=== PATIENT | male | born 1960 | race Caucasian/White ===

== ENCOUNTER 2016-11-28 10:29 | Inpatient (IN) | payer OTHER ==
[2016-11-28] MEDS ORDERED: Aspirin Low Dose CHEW TAB* 81 MG PO ONE (12:26)
[2016-11-28 12:39] LABS: Hematocrit 43 % (42-52); Hemoglobin 13.9 g/dl (14.0-18.0); Mean Corpuscular HGB Conc 33 g/dl (31-36); Mean Corpuscular Hemoglobin 30 pg (27-31); Mean Corpuscular Volume 91 fL (80-94); Mean Platelet Volume 12 um3 (7.4-10.4); Red Blood Count 4.65 10^6/ul (4.0-5.4); Red Cell Distribution Width 14 % (10.5-15)
[2016-11-28] MEDS ORDERED: Nitroglycerin TAB 0.4 MG* 0.4 MG TAB SL ONE (12:45)
[2016-11-28 12:51] LABS: Albumin 3.7 g/dL (3.2-5.2); BUN/Creatinine Ratio 14.6 (8-20); Calcium 8.9 mg/dL (8.6-10.3); EGFR African American 96.1 (>60); EGFR Non-African American 74.7 (>60); Globulin 2.8 g/dL (2-4); Potassium 4.4 mmol/L (3.5-5.0); Total Bilirubin 0.7 mg/dL (0.2-1.0); Total Protein 6.5 g/dL (6.4-8.9)
[2016-11-28 12:52] LABS: Troponin I 0.02 ng/mL (<0.04)
[2016-11-28] MEDS ORDERED: Iodixanol* (CONTRAST) 320 MG/ML 100 ML SDV IV ONE (13:22)
--- NOTE | 2016-11-28 13:41 | RAD ---
INDICATION: Chest pain. COMPARISON: Comparison is made with a prior chest x-ray study from August 09, 2015. TECHNIQUE: A portable view of the chest was obtained. FINDINGS: The heart is mildly enlarged and unchanged. The lungs are clear. No pleural effusion is seen. IMPRESSION: MILD CARDIOMEGALY, UNCHANGED.
--- NOTE | 2016-11-28 16:27 | ED ---
I, Ramesh,Chioma, scribed for Andrae Camacho MD on 11/28/16 at 1238 . Shortness of Breath <Jairo Mario - Last Filed: 11/28/16 16:21> - HPI Summary HPI Summary: This 56 y/o male presents to ED for acute SOB at ~ 0200 AM this morning. Positive mild substernal 1/10 CP. Mild nausea yesterday. No jaw pain, arm pain, or back pain. He called Dr. Aranda this morning and subsequently was referred to ED. PMHx includes sleep apnea, DM type II, bladder CA, hypothyroidism, CAD, and NH in 2010. Exertion and deep breath make SOB worse. Pt reports recent weight gain. He lives alone. Pt is nonsmoker and nondrinker. - History of Current Complaint Hx Obtained From: Patient, Medical Records Onset/Duration: Sudden Onset, Lasting Hours, Still Present Current Severity: Moderate Dyspnea At: Exertion Aggrevating Factors: Movement, Deep Breaths Alleviating Factors: Oxygen Associated Signs & Symptoms: Chest Pain Unrelated to Cough Related History: Obesity <Andrae Camacoh - Last Filed: 11/28/16 16:27> - History of Current Complaint Chief Complaint: EDShortnessOfBreath - Allergy/Home Medications Allergies/Adverse Reactions: Allergies Allergy/AdvReac Type Severity Reaction Status Date / Time Gabapentin Allergy Intermediate LOW BLOOD Verified 11/28/16 10:43 PRESSURE Procaine [From Novocain] Allergy Intermediate Hives Verified 11/28/16 10:43 Home Medications: Home Medications Aspirin EC Low Dose* [Ecotrin EC Low Dose*] 81 mg PO DAILY 11/28/16 [History Confirmed 11/28/16] Atorvastatin* [Lipitor*] 80 mg PO DAILY 11/28/16 [History Confirmed 11/28/16] BuPROPion XL* [Bupropion XL*] 300 mg PO DAILY 11/28/16 [History Confirmed ] Levothyroxine TAB* [Synthroid TAB*] 88 mcg PO DAILY 11/28/16 [History Confirmed 11/28/16] Levothyroxine TAB* [Synthroid TAB*] 100 mcg PO DAILY 11/28/16 [History Confirmed 11/28/16] Losartan TAB* [Cozaar TAB*] 25 mg PO DAILY 11/28/16 [History Confirmed 11/28/16] Metoprolol Succinate XL TAB* [Toprol XL TAB*] 50 mg PO DAILY 11/28/16 [History Confirmed 11/28/16] Topiramate TAB(*) [Topamax 100 MG(*)] 200 mg PO DAILY 11/28/16 [History Confirmed 11/28/16] traZODone TAB* [Desyrel TAB*] 50 - 100 mg PO BEDTIME PRN 11/28/16 [History Confirmed 11/28/16] PMH/Surg Hx/FS Hx/Imm Hx Endocrine/Hematology History: Reports: Hx Diabetes, Hx Thyroid Disease Denies: Hx Anemia, Hx Unexplained Bleeding Cardiovascular History: Reports: Hx Angina - HX, Hx Congenital Heart Disease, Hx Coronary Artery Disease, Hx Hypercholesterolemia, Hx Hypertension - CONTROL WITH MEDS, Hx Peripheral Vascular Disease - ENLARGED BLOOD VESSELS, Hx Syncope Denies: Hx Angioplasty, Hx Auto Implanted Cardiovert Defib, Hx Deep Vein Thrombosis, Hx Embolism, Hx Hypotension, Hx Pacemaker/ICD, Hx Rheumatic Fever, Hx Valvular Heart Disease Comment Only: Other Cardiovascular Problems/Disorders - 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 Respiratory History: Reports: Hx Asthma - CHILDHOOD, Hx Sleep Apnea - OXYGEN AT 3 LITERS AT NIGHT Denies: Hx Chronic Bronchitis, Hx Chronic Obstructive Pulmonary Disease (COPD ), Hx Cystic Fibrosis, Hx Lung Cancer, Hx Pleural Effusion, Hx Pneumonia, Hx Pulmonary Edema, Hx Pulmonary Embolism, Hx Seasonal Allergies Comment Only: Other Respiratory Problems/Disorders - SLEEPS SITTING UP/ DIFFICULTY SLEEPING GI History: Reports: Other GI Disorders - "SLIGHTLY INFLAMED LIVER" Denies: Hx Cirrhosis, Hx Crohn's Disease, Hx Diverticulosis, Hx Gall Bladder Disease, Hx Gastroesophageal Reflux Disease, Hx Gastrointestinal Bleed, Hx Hiatal Hernia, Hx Irritable Bowel, Hx Jaundice, Hx Obstructive Bowel, Hx Ileostomy, Hx Pyloric Stenosis, Hx Ulcer History: Reports: Hx Kidney Stones, Other Problems/Disorders Denies: Hx Acute Renal Failure, Hx Benign Prostatic Hyperplasia, Hx Chronic Renal Failure, Hx Dialysis, Hx Kidney Infection Musculoskeletal History: Reports: Other Musculoskeletal History Sensory History: Reports: Hx Contacts or Glasses Denies: Hx Cataracts, Hx Eye Injury, Hx Eye Prosthesis, Hx Glaucoma, Hx Legally Blind, Hx Macular Degeneration, Hx Vision Problem, Hx Deafness, Hx Hearing Aid, Hx Hearing Problem, Other Sensory Impairments Opthamlomology History: Reports: Hx Contacts or Glasses Denies: Hx Cataracts, Hx Eye Injury, Hx Eye Prosthesis, Hx Glaucoma, Hx Legally Blind, Hx Macular Degeneration, Hx Vision Problem, Other Sensory Impairments Neurological History: Reports: Hx Headaches, Hx Nerve Disease - neuropathy, C5 damaged, Hx Seizures, Hx Spinal Cord Injury - pt states trauma at coccyx many years ago Denies: Hx Dementia, Hx Developmental Delay, Hx Migraine, Hx Transient Ischemic Attacks (TIA), Other Neuro Impairments/Disorders Psychiatric History: Reports: Hx Anxiety - ON MEDICATION FOR, Hx Depression - ON MEDICATION FOR, Hx Post Traumatic Stress Disorder Denies: Hx Panic Disorder - Cancer History Cancer Type, 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 2010 HEART CATHERIZATION, [facility] [place]. 12/25/2014 CYSTOSCOPY BILATERAL RETROGRADE, BILATERAL STENT INSERTION, URETEROSCOPY, TUR BLADDER LESION, [facility] [place]. 01/11/2015 ESWL, CYSTOSCOPY, RIGHT STENT REMOVAL, [facility] Anesthesia Reactions: No - Immunization History Date of Tetanus Vaccine: Unsure Date of Influenza Vaccine: 2011 Infectious Disease History: No Infectious Disease History: Denies: Hx Clostridium Difficile, Hx Hepatitis, Hx Human Immunodeficiency Virus (HIV), Hx of Known/Suspected MRSA, Hx Shingles, Hx Tuberculosis, Hx Known/ Suspected VRE, Hx Known/Suspected VRSA, History Other Infectious Disease, Traveled Outside the [place] in Last 30 Days - Family History Known Family History: Negative: Cardiac Disease - Social History Alcohol Use: None Hx Substance Use: No Substance Use Type: Reports: None Hx Tobacco Use: No Smoking Status (MU): Never Smoked Tobacco Have You Smoked in the Last Year: No <Andrae Camacho - Last Filed: 11/28/16 16:27> Review of Systems Negative: Fever Negative: Erythema Negative: Sore Throat Positive: Chest Pain - mild Positive: Shortness Of Breath - worse with exertion and deep breath Positive: Nausea. Negative: Abdominal Pain, Vomiting Negative: dysuria, hematuria Negative: Edema Negative: Rash Neurological: Other - negative for dizziness All Other Systems Reviewed And Are Negative: Yes <Andrae Camacho - Last Filed: 11/28/16 16:27> Physical Exam Vital Signs On Initial Exam: Initial Vitals Temp Pulse Resp BP Pulse Ox 98.9 F 93 19 151/101 97 11/28/16 10:39 11/28/16 10:39 11/28/16 10:39 11/28/16 10:39 11/28/16 10:39 <Jairo Mario - Last Filed: 11/28/16 16:21> - Summary Physical Exam Summary: Constitutional: Well-developed, Obese, Alert. (-) Distressed Skin: Warm, Dry HENT: Normocephalic; Atraumatic Eyes: Conjunctiva normal Neck: Musculoskeletal ROM normal neck. (-) JVD, (-) Stridor, (-) Tracheal deviation Cardio: Rhythm regular, rate normal, Heart sounds normal; Intact distal pulses; The pedal pulses are 2+ and symmetric. Radial pulses are 2+ and symmetric. (-) Murmur Pulmonary/Chest wall: Effort normal. (-) Respiratory distress, (-) Wheezes, (-) Rales Abd: Soft, (-) Tenderness, (-) Distension, (-) Guarding, (-) Rebound Musculoskeletal: (-) Edema Lymph: (-) Cervical adenopathy Neuro: Alert, Oriented x3 Psych: Mood and affect Normal Triage Information Reviewed: Yes Vital Signs On Initial Exam: Initial Vitals Temp Pulse Resp BP Pulse Ox 98.9 F 93 19 151/101 97 11/28/16 10:39 11/28/16 10:39 11/28/16 10:39 11/28/16 10:39 11/28/16 10:39 Vital Signs Reviewed: Yes - [place] Coma Scale Coma Scale Total: 15 <Andrae Camacho - Last Filed: 11/28/16 16:27> Diagnostics - Vital Signs Vital Signs Temp Pulse Resp BP Pulse Ox 11/28/16 14:00 79 21 122/81 99 11/28/16 13:30 81 21 126/78 98 11/28/16 13:00 19 126/91 11/28/16 12:30 80 15 116/70 98 11/28/16 12:00 80 14 115/78 97 11/28/16 11:30 87 16 120/78 97 11/28/16 11:00 89 18 141/89 97 11/28/16 10:42 91 18 97 11/28/16 10:39 98.9 F 93 19 151/101 97 - Laboratory Lab Results: Lab Results 11/28/16 11/28/16 11/28/16 Range/Units 10:33 10:33 10:33 WBC 11.0 H (3.5-10.8) 10^3/ul RBC 4.65 (4.0-5.4) 10^6/ul Hgb 13.9 L (14.0-18.0) g/dl Hct 43 (42-52) % MCV 91 (80-94) fL MCH 30 (27-31) pg MCHC 33 (31-36) g/dl RDW 14 (10.5-15) % Plt Count 169 (150-450) 10^3/ul MPV 12 H (7.4-10.4) um3 Neut % (Auto) 78.1 (38-83) % Lymph % (Auto) 12.9 L (25-47) % [place] % (Auto) 7.1 (1-9) % Eos % (Auto) 1.1 (0-6) % Baso % (Auto) 0.8 (0-2) % Absolute Neuts (auto) 8.6 H (1.5-7.7) 10^3/ul Absolute Lymphs (auto) 1.4 (1.0-4.8) 10^3/ul Absolute Monos (auto) 0.8 (0-0.8) 10^3/ul Absolute Eos (auto) 0.1 (0-0.6) 10^3/ul Absolute Basos (auto) 0.1 (0-0.2) 10^3/ul Absolute Nucleated RBC 0 10^3/ul Nucleated RBC % 0 Sodium 134 (133-145) mmol/L Potassium 4.4 (3.5-5.0) mmol/L Chloride 103 (101-111) mmol/L Carbon Dioxide 25 (22-32) mmol/L Anion Gap 6 (2-11) mmol/L BUN 15 (6-24) mg/dL Creatinine 1.03 (0.67-1.17) mg/dL Est GFR ( Amer) 96.1 (>60) Est GFR (Non-Af Amer) 74.7 (>60) BUN/Creatinine Ratio 14.6 (8-20) Glucose 150 H (70-100) mg/dL Lactic Acid (0.5-2.0) mmol/L Calcium 8.9 (8.6-10.3) mg/dL Total Bilirubin 0.70 (0.2-1.0) mg/dL AST 12 L (13-39) U/L ALT 16 (7-52) U/L Alkaline Phosphatase 81 (34-104) U/L Troponin I 0.02 (<0.04) ng/mL B-Natriuretic Peptide 320 H ( - 100) pg/mL Total Protein 6.5 (6.4-8.9) g/dL Albumin 3.7 (3.2-5.2) g/dL Globulin 2.8 (2-4) g/dL Albumin/Globulin Ratio 1.3 (1-3) 11/28/16 Range/Units 15:40 WBC (3.5-10.8) 10^3/ul RBC (4.0-5.4) 10^6/ul Hgb (14.0-18.0) g/dl Hct (42-52) % MCV (80-94) fL MCH (27-31) pg MCHC (31-36) g/dl RDW (10.5-15) % Plt Count (150-450) 10^3/ul MPV (7.4-10.4) um3 Neut % (Auto) (38-83) % Lymph % (Auto) (25-47) % [place] % (Auto) (1-9) % Eos % (Auto) (0-6) % Baso % (Auto) (0-2) % Absolute Neuts (auto) (1.5-7.7) 10^3/ul Absolute Lymphs (auto) (1.0-4.8) 10^3/ul Absolute Monos (auto) (0-0.8) 10^3/ul Absolute Eos (auto) (0-0.6) 10^3/ul Absolute Basos (auto) (0-0.2) 10^3/ul Absolute Nucleated RBC 10^3/ul Nucleated RBC % Sodium (133-145) mmol/L Potassium (3.5-5.0) mmol/L Chloride (101-111) mmol/L Carbon Dioxide (22-32) mmol/L Anion Gap (2-11) mmol/L BUN (6-24) mg/dL Creatinine (0.67-1.17) mg/dL Est GFR ( Amer) (>60) Est GFR (Non-Af Amer) (>60) BUN/Creatinine Ratio (8-20) Glucose (70-100) mg/dL Lactic Acid 1.0 (0.5-2.0) mmol/L Calcium (8.6-10.3) mg/dL Total Bilirubin (0.2-1.0) mg/dL AST (13-39) U/L ALT (7-52) U/L Alkaline Phosphatase (34-104) U/L Troponin I (<0.04) ng/mL B-Natriuretic Peptide ( - 100) pg/mL Total Protein (6.4-8.9) g/dL Albumin (3.2-5.2) g/dL Globulin (2-4) g/dL Albumin/Globulin Ratio (1-3) Result Diagrams: 11/28/16 10:33 11/28/16 10:33 Lab Statement: Any lab studies that have been ordered have been reviewed, and results considered in the medical decision making process. <Jairo Mario - Last Filed: 11/28/16 16:21> - Vital Signs Vital Signs Temp Pulse Resp BP Pulse Ox 11/28/16 12:00 80 14 115/78 97 11/28/16 11:30 87 16 120/78 97 11/28/16 11:00 89 18 141/89 97 11/28/16 10:42 91 18 97 11/28/16 10:39 98.9 F 93 19 151/101 97 - Laboratory Lab Results: Lab Results 11/28/16 11/28/16 11/28/16 Range/Units 10:33 10:33 10:33 WBC 11.0 H (3.5-10.8) 10^3/ul RBC 4.65 (4.0-5.4) 10^6/ul Hgb 13.9 L (14.0-18.0) g/dl Hct 43 (42-52) % MCV 91 (80-94) fL MCH 30 (27-31) pg MCHC 33 (31-36) g/dl RDW 14 (10.5-15) % Plt Count 169 (150-450) 10^3/ul MPV 12 H (7.4-10.4) um3 Neut % (Auto) 78.1 (38-83) % Lymph % (Auto) 12.9 L (25-47) % [place] % (Auto) 7.1 (1-9) % Eos % (Auto) 1.1 (0-6) % Baso % (Auto) 0.8 (0-2) % Absolute Neuts (auto) 8.6 H (1.5-7.7) 10^3/ul Absolute Lymphs (auto) 1.4 (1.0-4.8) 10^3/ul Absolute Monos (auto) 0.8 (0-0.8) 10^3/ul Absolute Eos (auto) 0.1 (0-0.6) 10^3/ul Absolute Basos (auto) 0.1 (0-0.2) 10^3/ul Absolute Nucleated RBC 0 10^3/ul Nucleated RBC % 0 Sodium 134 (133-145) mmol/L Potassium 4.4 (3.5-5.0) mmol/L Chloride 103 (101-111) mmol/L Carbon Dioxide 25 (22-32) mmol/L Anion Gap 6 (2-11) mmol/L BUN 15 (6-24) mg/dL Creatinine 1.03 (0.67-1.17) mg/dL Est GFR ( Amer) 96.1 (>60) Est GFR (Non-Af Amer) 74.7 (>60) BUN/Creatinine Ratio 14.6 (8-20) Glucose 150 H (70-100) mg/dL Lactic Acid (0.5-2.0) mmol/L Calcium 8.9 (8.6-10.3) mg/dL Total Bilirubin 0.70 (0.2-1.0) mg/dL AST 12 L (13-39) U/L ALT 16 (7-52) U/L Alkaline Phosphatase 81 (34-104) U/L Troponin I 0.02 (<0.04) ng/mL B-Natriuretic Peptide 320 H ( - 100) pg/mL Total Protein 6.5 (6.4-8.9) g/dL Albumin 3.7 (3.2-5.2) g/dL Globulin 2.8 (2-4) g/dL Albumin/Globulin Ratio 1.3 (1-3) 11/28/16 Range/Units 15:40 WBC (3.5-10.8) 10^3/ul RBC (4.0-5.4) 10^6/ul Hgb (14.0-18.0) g/dl Hct (42-52) % MCV (80-94) fL MCH (27-31) pg MCHC (31-36) g/dl RDW (10.5-15) % Plt Count (150-450) 10^3/ul MPV (7.4-10.4) um3 Neut % (Auto) (38-83) % Lymph % (Auto) (25-47) % [place] % (Auto) (1-9) % Eos % (Auto) (0-6) % Baso % (Auto) (0-2) % Absolute Neuts (auto) (1.5-7.7) 10^3/ul Absolute Lymphs (auto) (1.0-4.8) 10^3/ul Absolute Monos (auto) (0-0.8) 10^3/ul Absolute Eos (auto) (0-0.6) 10^3/ul Absolute Basos (auto) (0-0.2) 10^3/ul Absolute Nucleated RBC 10^3/ul Nucleated RBC % Sodium (133-145) mmol/L Potassium (3.5-5.0) mmol/L Chloride (101-111) mmol/L Carbon Dioxide (22-32) mmol/L Anion Gap (2-11) mmol/L BUN (6-24) mg/dL Creatinine (0.67-1.17) mg/dL Est GFR ( Amer) (>60) Est GFR (Non-Af Amer) (>60) BUN/Creatinine Ratio (8-20) Glucose (70-100) mg/dL Lactic Acid 1.0 (0.5-2.0) mmol/L Calcium (8.6-10.3) mg/dL Total Bilirubin (0.2-1.0) mg/dL AST (13-39) U/L ALT (7-52) U/L Alkaline Phosphatase (34-104) U/L Troponin I (<0.04) ng/mL B-Natriuretic Peptide ( - 100) pg/mL Total Protein (6.4-8.9) g/dL Albumin (3.2-5.2) g/dL Globulin (2-4) g/dL Albumin/Globulin Ratio (1-3) Result Diagrams: 11/28/16 10:33 11/28/16 10:33 Lab Statement: Any lab studies that have been ordered have been reviewed, and results considered in the medical decision making process. - Radiology CXR Xray Interpretation: No Acute Changes - mild cardiomegaly, unchanged. Radiology Interpretation Completed By: Radiologist - CT CTA chest/thorax CT Interpretation Completed By: Radiologist - EKG 1028 Cardiac Rate: NL - 92 bpm EKG Rhythm: Sinus Rhythm EKG Interpretation: Twve inversion at V5-6 <Andrae Camacho - Last Filed: 11/28/16 16:27> Course/Dx - Course Course Of Treatment: accepted for admit by dr garcia @ 1622, with CTA still pending. r/o ACS vs PE vs. CHF vs obstructive pulmonary process - Physician Notifications Discussed Care of Patient With: dr aranda requests hospitalist admit @ 1620 <Jairo Mario - Last Filed: 11/28/16 16:21> - Course Assessment/Plan: charting error: all documentation by Dr. Camacho, Dr. Mario did not chart on or see this patient - Physician Notifications Discussed Care of Patient With: Dr. Aranda (Primary care provider) paged at 1539 PM. Carson Gonzalez at 1556 PM. She will be labor relations consultant for the group starting from 1630 PM. Time Discussed With Above Provider: 15:56 <Andrae Camacho - Last Filed: 11/28/16 16:27> - Diagnoses Provider Diagnoses: Shortness of breath, Chest pain, unspecified Discharge <Jairo Mraio - Last Filed: 11/28/16 16:21> - Discharge Plan Discharge Disposition Comment: Signed out at shift change. Pending CTA chest and poss admission workup. <Andrae Camacho - Last Filed: 11/28/16 16:27> - Discharge Plan Condition: Stable Disposition: ADMITTED TO [facility] Referrals: Clifford Aranda MD [Primary Care Provider] - The documentation as recorded by the Ramesh hernandez Soohyun accurately reflects the service I personally performed and the decisions made by Doug thompson Jerry, MD.
--- NOTE | 2016-11-28 16:30 | RAD ---
INDICATION: Chest pain. Short of breath. Evaluate for pulmonary embolus. Short of breath COMPARISON: Chest x-ray November 28, 2016; CTA chest/abdomen/pelvis January 22, 2011 TECHNIQUE: Axial source images were obtained from the thoracic inlet to the hemidiaphragms following administration of [address] angiographic technique was utilized. Coronal and sagittal reconstructed images were acquired. CHEST FINDINGS: Neck/thyroid: The visualized neck to include the thyroid appear normal. Chest wall: There are no acute abnormalities of the bony thorax or chest wall. There is no supraclavicular, infraclavicular, or axillary lymphadenopathy. Lungs : There are no pulmonary parenchymal masses or infiltrates. The pulmonary interstitium appears normal. There are no endobronchial lesions. Cardiomediastinal structures: There is no CT evidence of acute pulmonary embolic disease. There are minor limitations in evaluation of peripheral pulmonary arteries due to breathing motion artifact and body habitus. The heart is enlarged. There is no pericardial effusion. There is no evidence of aortic aneurysm or dissection. There is no mediastinal or hilar adenopathy. The esophagus appears normal. Pleura : There are no pleural-based masses or effusions. Other: None. IMPRESSION: MILDLY LIMITED EXAMINATION. NO CT EVIDENCE OF ACUTE PULMONARY EMBOLIC DISEASE AT LEAST THROUGH FOURTH ORDER BRANCH VESSELS . CARDIOMEGALY. MILD BIBASILAR ATELECTASIS WITH SMALL BILATERAL PLEURAL EFFUSIONS.
[2016-11-28] MEDS ORDERED: metFORMIN* 1,000 MG TAB PO SCH (17:00)
[2016-11-28] MEDS ORDERED: Clopidogrel TAB* 75 MG PO ONE (17:01)
--- NOTE | 2016-11-28 17:16 | ADMNOTE ---
Subjective Date of Service: 11/28/16 Interval History: ADMISSION HISTORY AND PHYSICAL EXAM: Allergies Allergy/AdvReac Type Severity Reaction Status Date / Time Gabapentin Allergy Intermediate LOW BLOOD Verified 11/28/16 10:43 PRESSURE Procaine [From Novocain] Allergy Intermediate Hives Verified 11/28/16 10:43 Home Medications Medication Instructions Recorded Confirmed Type Clopidogrel TAB* [Plavix TAB*] 75 mg PO DAILY 08/10/13 11/28/16 History metFORMIN* [Glucophage*] 1,000 mg PO BID WITH MEALS 12/18/14 11/28/16 History Aspirin EC Low Dose* [Ecotrin EC 81 mg PO DAILY 11/28/16 11/28/16 History Low Dose*] Atorvastatin* [Lipitor*] 80 mg PO DAILY 11/28/16 11/28/16 History BuPROPion XL* [Bupropion XL*] 300 mg PO DAILY 11/28/16 11/28/16 History Levothyroxine TAB* [Synthroid TAB*] 88 mcg PO DAILY 11/28/16 11/28/16 History Levothyroxine TAB* [Synthroid TAB*] 100 mcg PO DAILY 11/28/16 11/28/16 History Losartan TAB* [Cozaar TAB*] 25 mg PO DAILY 11/28/16 11/28/16 History Metoprolol Succinate XL TAB* 50 mg PO DAILY 11/28/16 11/28/16 History [Toprol XL TAB*] Topiramate TAB(*) [Topamax 100 200 mg PO DAILY 11/28/16 11/28/16 History MG(*)] traZODone TAB* [Desyrel TAB*] 50 - 100 mg PO BEDTIME PRN 11/28/16 11/28/16 History HPI: Catherine awoke 3 AM today SOB. He did not take any of his meds at home. He states he was "immobilized" sitting on the edge of his bed at 8 AM. He called [address] Aranda's office. He denies cough, chest pain. Family History: Findings - unremarkable. Social History: Findings - Never smoked. No alcohol abuse. Lives alone. On disability. 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 Past Medical History: Findings - DM with retinopathy, coronary ectasia, TYRA with BIPAP at home. Review of Systems - Measurements Intake and Output: Intake and Output Last 24 Hours 11/26/16 11/27/16 11/28/16 11/29/16 06:59 06:59 06:59 06:59 Weight 336 lb - Review of Systems Constitutional Symptoms: Negative: Weight Gain, Weight Loss, Weakness, Fatigue, Fever, Night Sweats, Unexplained Falls, Other Dermatology: Positive: Normal HEENT: Positive: Normal Eyes: Positive: Normal Thyroid: Positive: Primary Hypothyroidism Pulmonary: Positive: Shortness of Breath Cardiology: Positive: Normal Gastroenterology: Positive: Normal Genital - Urinary: Positive: Normal Endocrinology: Positive: Thyroid Problems, Diabetes Mellitus Hematologic/Lymphatic: Negative: Anemia, Easy Brusing, Hx Leukemia, Hx Lymphoma, Use of Anticoagulant, Use of Antiplatelet Drugs, Other Neurology: Positive: Normal Allergic/Immunologic: Negative: Hx Anaphylaxis, Hx Angioedema, Hx Environmental, Hx Seasonal, Athsma, Hx HIV, Immunocompromise, Swollen Glands LymphNodes, Other Objective Active Medications: Aspirin (Aspirin Ec Low Dose*) 81 mg PO DAILY [facility] Atorvastatin Calcium (Lipitor*) 80 mg PO DAILY [facility] Bupropion HCl (Bupropion Xl*) 300 mg PO DAILY [facility] Clopidogrel Bisulfate (Plavix Tab*) 75 mg PO DAILY [facility] Enoxaparin Sodium (Lovenox(*)) 40 mg SUBCUT Q24H [facility] Levothyroxine Sodium (Synthroid Tab*) 100 mcg PO DAILY [facility] Levothyroxine Sodium (Synthroid Tab*) 88 mcg PO DAILY [facility] Losartan Potassium (Cozaar Tab*) 25 mg PO DAILY [facility] Metoprolol Succinate (Toprol Xl Tab*) 50 mg PO DAILY [facility] Topiramate (Topamax(*)) 200 mg PO DAILY [facility] Vital Signs 11/28/16 11/28/16 11/28/16 10:39 10:42 11:00 Temperature 98.9 F Pulse Rate 93 91 89 Respiratory 19 18 18 Rate Blood Pressure 151/101 141/89 (mmHg) O2 Sat by Pulse 97 97 97 Oximetry 11/28/16 11/28/16 11/28/16 11:30 12:00 12:30 Temperature Pulse Rate 87 80 80 Respiratory 16 14 15 Rate Blood Pressure 120/78 115/78 116/70 (mmHg) O2 Sat by Pulse 97 97 98 Oximetry 11/28/16 11/28/16 11/28/16 13:00 13:30 14:00 Temperature Pulse Rate 81 79 Respiratory 19 21 21 Rate Blood Pressure 126/91 126/78 122/81 (mmHg) O2 Sat by Pulse 98 99 Oximetry 11/28/16 11/28/16 15:00 15:30 Temperature Pulse Rate 77 83 Respiratory 14 11 Rate Blood Pressure 124/81 101/74 (mmHg) O2 Sat by Pulse 99 97 Oximetry Oxygen Devices in Use Now: None Appearance: Alert, suppine on ED stretcher. In good spirits. Looks comfortable. O2 sat 96% on RA. Eyes: No Scleral Icterus Ears/Nose/Mouth/Throat: Clear Oropharnyx, Mucous Membranes Moist Neck: NL Appearance and Movements; NL JVP, No Thyroid Enlargement, Masses Respiratory: Symmetrical Chest Expansion and Respiratory Effort, Clear to Auscultation, Clear to Percussion Cardiovascular: NL Sounds; No Murmurs; No JVD, RRR, No Edema, - Extremities: No Edema, No Clubbing, Cyanosis, - Skin: No Rash or Ulcers, No Nodules or Sclerosis, - Neurological: Alert and Oriented x 3, NL Sensation Result Diagrams: 11/28/16 10:33 11/28/16 10:33 Additional Lab and Data: Lab Results 11/28/16 11/28/16 11/28/16 Range/Units 10:33 10:33 10:33 WBC 11.0 H (3.5-10.8) 10^3/ul RBC 4.65 (4.0-5.4) 10^6/ul Hgb 13.9 L (14.0-18.0) g/dl Hct 43 (42-52) % MCV 91 (80-94) fL MCH 30 (27-31) pg MCHC 33 (31-36) g/dl RDW 14 (10.5-15) % Plt Count 169 (150-450) 10^3/ul MPV 12 H (7.4-10.4) um3 Neut % (Auto) 78.1 (38-83) % Lymph % (Auto) 12.9 L (25-47) % [place] % (Auto) 7.1 (1-9) % Eos % (Auto) 1.1 (0-6) % Baso % (Auto) 0.8 (0-2) % Absolute Neuts (auto) 8.6 H (1.5-7.7) 10^3/ul Absolute Lymphs (auto) 1.4 (1.0-4.8) 10^3/ul Absolute Monos (auto) 0.8 (0-0.8) 10^3/ul Absolute Eos (auto) 0.1 (0-0.6) 10^3/ul Absolute Basos (auto) 0.1 (0-0.2) 10^3/ul Absolute Nucleated RBC 0 10^3/ul Nucleated RBC % 0 Sodium 134 (133-145) mmol/L Potassium 4.4 (3.5-5.0) mmol/L Chloride 103 (101-111) mmol/L Carbon Dioxide 25 (22-32) mmol/L Anion Gap 6 (2-11) mmol/L BUN 15 (6-24) mg/dL Creatinine 1.03 (0.67-1.17) mg/dL Est GFR ( Amer) 96.1 (>60) Est GFR (Non-Af Amer) 74.7 (>60) BUN/Creatinine Ratio 14.6 (8-20) Glucose 150 H (70-100) mg/dL Lactic Acid (0.5-2.0) mmol/L Calcium 8.9 (8.6-10.3) mg/dL Total Bilirubin 0.70 (0.2-1.0) mg/dL AST 12 L (13-39) U/L ALT 16 (7-52) U/L Alkaline Phosphatase 81 (34-104) U/L Troponin I 0.02 (<0.04) ng/mL B-Natriuretic Peptide 320 H ( - 100) pg/mL Total Protein 6.5 (6.4-8.9) g/dL Albumin 3.7 (3.2-5.2) g/dL Globulin 2.8 (2-4) g/dL Albumin/Globulin Ratio 1.3 (1-3) 11/28/16 Range/Units 15:40 WBC (3.5-10.8) 10^3/ul RBC (4.0-5.4) 10^6/ul Hgb (14.0-18.0) g/dl Hct (42-52) % MCV (80-94) fL MCH (27-31) pg MCHC (31-36) g/dl RDW (10.5-15) % Plt Count (150-450) 10^3/ul MPV (7.4-10.4) um3 Neut % (Auto) (38-83) % Lymph % (Auto) (25-47) % [place] % (Auto) (1-9) % Eos % (Auto) (0-6) % Baso % (Auto) (0-2) % Absolute Neuts (auto) (1.5-7.7) 10^3/ul Absolute Lymphs (auto) (1.0-4.8) 10^3/ul Absolute Monos (auto) (0-0.8) 10^3/ul Absolute Eos (auto) (0-0.6) 10^3/ul Absolute Basos (auto) (0-0.2) 10^3/ul Absolute Nucleated RBC 10^3/ul Nucleated RBC % Sodium (133-145) mmol/L Potassium (3.5-5.0) mmol/L Chloride (101-111) mmol/L Carbon Dioxide (22-32) mmol/L Anion Gap (2-11) mmol/L BUN (6-24) mg/dL Creatinine (0.67-1.17) mg/dL Est GFR ( Amer) (>60) Est GFR (Non-Af Amer) (>60) BUN/Creatinine Ratio (8-20) Glucose (70-100) mg/dL Lactic Acid 1.0 (0.5-2.0) mmol/L Calcium (8.6-10.3) mg/dL Total Bilirubin (0.2-1.0) mg/dL AST (13-39) U/L ALT (7-52) U/L Alkaline Phosphatase (34-104) U/L Troponin I (<0.04) ng/mL B-Natriuretic Peptide ( - 100) pg/mL Total Protein (6.4-8.9) g/dL Albumin (3.2-5.2) g/dL Globulin (2-4) g/dL Albumin/Globulin Ratio (1-3) Assess/Plan/Problems-Billing Assessment: - Patient Problems (1) Dyspnea Current Visit: Yes Status: Acute Code(s): R06.00 - DYSPNEA, UNSPECIFIED SNOMED Code(s): 721509066 Comment: Although he has both heart and lung disease, I suspect the acute change which resolved without intervention was related to anxiety. Mucous pugging is also possible. He appears to be at [facility] [place] now, O2 sat 96% on RA. I ordered overnight oximetry on RA, no BIPAP. He uses nasal BIPAP at home which we don't have. Tele, second troponin pending. (2) Coronary artery disease Current Visit: No Status: Chronic Priority: Low Code(s): I25.10 - ATHSCL HEART DISEASE OF [place] CORONARY ARTERY W/O ANG PCTRS SNOMED Code(s): 35069923 Comment: He will get his doses of ASA and clopidogrel for today. All meds ordered except metformin. 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 Metformin on hold. (4) Obesity, morbid, BMI 50 or higher Current Visit: No Status: Chronic Priority: Low Code(s): E66.01 - MORBID ( SEVERE) OBESITY DUE TO EXCESS CALORIES SNOMED Code(s): 293762755 Comment: BMI 54.2. (5) Primary hypothyroidism Current Visit: No Status: Chronic Priority: Low Code(s): E03.9 - HYPOTHYROIDISM, UNSPECIFIED SNOMED Code(s): 16768490 Comment: Home dose levothyroxine ordered. TSH wnl 08/2016. (6) Essential (primary) hypertension Current Visit: No Status: Chronic Priority: Medium Code(s): I10 - ESSENTIAL (PRIMARY) HYPERTENSION SNOMED Code(s): 16821076 Comment: Losartan and metoprolol ordered. (7) Hypercholesteremia Current Visit: No Status: Chronic Priority: Low Code(s): E78.0 - PURE HYPERCHOLESTEROLEMIA * DO NOT USE * SNOMED Code(s): 12585740 Comment: Statin ordered.
[2016-11-28] MEDS ORDERED: Dextrose 50% Syringe 50 ML* 25 GM/50 ML SYRINGE IV PUSH PRN (17:19)
[2016-11-28] MEDS: Enoxaparin(*) 40 MG/0.4 ML SYR SUBCUT SCH (20:44)
[2016-11-28] MEDS: Insulin LISPRO* 1 UNITS UNIT SUBCUT SCH (20:55)
[2016-11-28] MEDS: Acetaminophen TAB* 325 MG PO PRN (22:17)
[2016-11-29] MEDS: Levothyroxine TAB* 100 MCG TAB PO SCH (05:08)
[2016-11-29] MEDS: Acetaminophen TAB* 325 MG PO PRN (05:10)
[2016-11-29] MEDS ORDERED: Levothyroxine TAB* 88 MCG TAB PO SCH (06:00)
--- NOTE | 2016-11-29 08:37 | PN ---
Subjective - Subjective Reason for Note: Progress Note History: History from patient: I saw him in my office last week and increased his losartan. He is otherwise well. 11/28/16 at 2:30 am he had a bowel movement - unusual for him. After this he developed dyspnea. He had to sit upright for the rest of the night. This worsened at 7 - 8 am and he found his legs were wobbly. He used his home O2 concentrator at 5 lpm - no relief. He called my office at 9:15 and proceeded to the ED. No chest pain/tightness/arm pain or jaw pain. He had diaphoresis. No nausea, palpitations, pre-syncope. No cough/sputum/hemoptysis. No fevers or sweats NTG and O2 in the ambulance relieved his symptoms. He has had no further problems. He has had no edema. Today "I'm fine" - he had no orthopnea or paroxysmal nocturnal dyspnea overnight. His telemetry shows a few PVCs. Active Problems: Active Problems Dyspnea (Acute) R06.00 Although he has both heart and lung disease, I suspect the acute change which resolved without intervention was related to anxiety. Mucous pugging is also possible. He appears to be at [facility], [place] now, O2 sat 96% on RA. I ordered overnight oximetry on RA, no BIPAP. He uses nasal BIPAP at home which we don't have. Tele, second troponin pending. Moderate mitral regurgitation (Acute) I34.0 Systolic and diastolic CHF, acute (Acute) I50.41 Coronary artery disease (Chronic) I25.10 He will get his doses of ASA and clopidogrel for today. All meds ordered except metformin. Diverticulosis (Chronic) K57.90 Essential (primary) hypertension (Chronic) I10 Losartan and metoprolol ordered. Hypercholesteremia (Chronic) E78.0 Statin ordered. Nephrolithiasis (Chronic) N20.0 Obesity, morbid, BMI 50 or higher (Chronic) E66.01 BMI 54.2. PTSD (post-traumatic stress disorder) (Chronic) F43.10 Primary hypothyroidism (Chronic) E03.9 Home dose levothyroxine ordered. TSH wnl 08/2016. 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 Metformin on hold. Current Medications: Current Medications Acetaminophen (Tylenol Tab*) 650 mg PO Q4H PRN PRN Reason: HEADACHE Last Admin: 11/29/16 05:10 Dose: 650 mg Aspirin (Aspirin Ec Low Dose*) 81 mg PO DAILY [facility] Atorvastatin Calcium (Lipitor*) 80 mg PO DAILY [facility] Bupropion HCl (Bupropion Xl*) 300 mg PO DAILY [facility] Clopidogrel Bisulfate (Plavix Tab*) 75 mg PO DAILY [facility] Dextrose (D50w Syringe 50 Ml*) 12.5 gm IV PUSH .FOR FS < 60 - SS PRN PRN Reason: FS < 60 Enoxaparin Sodium (Lovenox(*)) 40 mg SUBCUT Q24H [facility] Last Admin: 11/28/16 20:44 Dose: 40 mg Insulin Human Lispro (Humalog*) 0 units SUBCUT ACHS [facility] PRN Reason: Protocol Last Admin: 11/28/16 20:55 Dose: 6 units Levothyroxine Sodium (Synthroid Tab*) 100 mcg PO 0600 [facility] Last Admin: 11/29/16 05:08 Dose: 100 mcg Losartan Potassium (Cozaar Tab*) 25 mg PO DAILY [facility] Metoprolol Succinate (Toprol Xl Tab*) 50 mg PO DAILY [facility] Topiramate (Topamax(*)) 200 mg PO DAILY [facility] - Review of Systems Constitutional Symptoms: No: Fever, Night Sweats Pulmonary: Positive: Respiratory Distress - at presentation, not now Negative: Cough, Sputum, Hemoptysis Cardiology: Positive: Shortness of Breath Negative: Chest Pain, Palpitations Gastroenterology: Negative: Nausea, Vomiting, Anorexia, Change in Bowel Habits Genital - Urinary: Negative: Dysuria, Polyuria Neurology: Positive: Headache - from NTG Home Medications: Home Medications Medication Instructions Recorded Confirmed Type Clopidogrel TAB* [Plavix TAB*] 75 mg PO DAILY 08/10/13 11/28/16 History metFORMIN* [Glucophage*] 1,000 mg PO BID WITH MEALS 12/18/14 11/28/16 History Aspirin EC Low Dose* [Ecotrin EC 81 mg PO DAILY 11/28/16 11/28/16 History Low Dose*] Atorvastatin* [Lipitor*] 80 mg PO DAILY 11/28/16 11/28/16 History BuPROPion XL* [Bupropion XL*] 300 mg PO DAILY 11/28/16 11/28/16 History Levothyroxine TAB* [Synthroid TAB*] 100 mcg PO DAILY 11/28/16 11/28/16 History Losartan TAB* [Cozaar TAB*] 25 mg PO DAILY 11/28/16 11/28/16 History Metoprolol Succinate XL TAB* 50 mg PO DAILY 11/28/16 11/28/16 History [Toprol XL TAB*] Topiramate TAB(*) [Topamax 100 200 mg PO DAILY 11/28/16 11/28/16 History MG(*)] traZODone TAB* [Desyrel TAB*] 50 - 100 mg PO BEDTIME PRN 11/28/16 11/28/16 History Allergies: Allergies Allergy/AdvReac Type Severity Reaction Status Date / Time Gabapentin Allergy Intermediate LOW BLOOD Verified 11/28/16 10:43 PRESSURE Procaine [From Novocain] Allergy Intermediate Hives Verified 11/28/16 10:43 Objective - Vital Signs Vital Signs: Vital Signs 11/28/16 11/28/16 11/29/16 19:41 21:12 00:20 Temperature 98.3 F 98.8 F 97.7 F Pulse Rate 92 89 Respiratory 18 16 Rate Blood Pressure 138/80 147/97 (mmHg) O2 Sat by Pulse 96 96 Oximetry 11/29/16 11/29/16 11/29/16 04:10 06:09 07:35 Temperature 98.4 F 98.5 F Pulse Rate 86 88 Respiratory 16 16 Rate Blood Pressure 133/82 158/94 (mmHg) O2 Sat by Pulse 95 92 96 Oximetry - Intake and Output Intake and Output: Intake & Output 11/26/16 11/27/16 11/28/16 11/29/16 11:59 11:59 11:59 11:59 Intake Total 400 Output Total 0 Balance 400 Weight 337 lb 11.2 oz Intake: Oral 400 Output: Urine 0 Other: Estimated Void Medium # Bowel Movements 0 # Voids 1 ADLs: Meal Record Start: 11/28/16 21: 03 Freq: DAILY@0900,1400,1800 Status: Active Created 11/28/16 21:03 [id number] (Rec: 11/28/16 21:03 [id number] [facility]-5) Intake and Output Start: 11/28/16 21: 03 Freq: DAILY@0600,1400,2200 Status: Active Created 11/28/16 21:03 [id number] (Rec: 11/28/16 21:03 [id number]) Document 11/28/16 22:00 [id number] (Rec: 11/28/16 22:14 [id number]) Document 11/29/16 06:00 [id number] (Rec: 11/29/16 06:28 [id number]) - Physical Exam General Physical Exam Comment: Warm and well perfused, in no acute distress. Foot exam - no ulcers, callouses or infections. General: No Cyanosis, No Anemia, No Jaundice, No Clubbing Endocrine: Yes Central Obesity, No Acromegaly, No Vitiligo, No Flushing, Yes Acanthosis nigricans, No Violaceious striae, No Floyd Syndrome Lungs and Chest: Yes: Chest Expansion Full, Chest Expansion Symetrica, Percussion Note Resonant, Vessicular Breath Sounds. No: Crackles, Wheezes Heart Rate and Rhythm: Regular Additional Cardiovascular: Yes: Normal Heart Sounds. No: Heart Murmur, Pedal Edema Abdominal Exam: Yes: Soft, Bowel Sounds Present. No: Distention, Abdominal Mass , Hepatomegaly, Abdominal Tenderness - Extremities Cranial Nerves II-XII Intact: Yes Limbs: Normal Power, Normal Tone, Normal Coordination Results - Results Lab Results: Laboratory Results - last 24 hr 11/28/16 11/29/16 20:42 07:38 POC Glucose (mg/dL) 210 H 145 H Selected Entries 08/10/15 07:30 POC Glucose Yes Obtained Laboratory Tests 11/28/16 11/28/16 11/28/16 10:33 10:33 10:33 WBC 11.0 H Hgb 13.9 L Hct 43 Plt Count 169 Sodium 134 Potassium 4.4 Chloride 103 Carbon Dioxide 25 BUN 15 Creatinine 1.03 Glucose 150 H AST 12 L ALT 16 Alkaline Phosphatase 81 B-Natriuretic Peptide 320 H Laboratory Tests 11/28/16 11/28/16 10:33 15:40 Troponin I 0.02 0.02 Laboratory Tests 11/18/10 08/10/13 11/28/16 13:00 15:05 10:33 B-Natriuretic Peptide 20.0 46.0 320 H Radiology Results: Patient Name: TRENT AGGARWAL Medical Record#: [id number] Ordering Physician: Andrae Camacho MD Acct.#: [id number] : 1960 Age: 56 Sex: M Location: EMERGENCY DEPARTMENT Exam Date: 11/28/16 1245 ADM Status: REG ER Order Information: CTA CHEST Accession Number: [id number] CPT: 38711 INDICATION: Chest pain. Short of breath. Evaluate for pulmonary embolus. Short of breath COMPARISON: Chest x-ray November 28, 2016; CTA chest/abdomen/pelvis January 22, 2011 TECHNIQUE: Axial source images were obtained from the thoracic inlet to the hemidiaphragms following administration of [address] angiographic technique was utilized. Coronal and sagittal reconstructed images were acquired. CHEST FINDINGS: Neck/thyroid: The visualized neck to include the thyroid appear normal. Chest wall: There are no acute abnormalities of the bony thorax or chest wall. There is no supraclavicular, infraclavicular, or axillary lymphadenopathy. Lungs : There are no pulmonary parenchymal masses or infiltrates. The pulmonary interstitium appears normal. There are no endobronchial lesions. Cardiomediastinal structures: There is no CT evidence of acute pulmonary embolic disease. There are minor limitations in evaluation of peripheral pulmonary arteries due to breathing motion artifact and body habitus. The heart is enlarged. There is no pericardial effusion. There is no evidence of aortic aneurysm or dissection. There is no mediastinal or hilar adenopathy. The esophagus appears normal. Pleura : There are no pleural-based masses or effusions. Other: None. IMPRESSION: MILDLY LIMITED EXAMINATION. NO CT EVIDENCE OF ACUTE PULMONARY EMBOLIC DISEASE AT LEAST THROUGH FOURTH ORDER BRANCH VESSELS . CARDIOMEGALY. MILD BIBASILAR ATELECTASIS WITH SMALL BILATERAL PLEURAL EFFUSIONS. <Electronically signed by Hansel Cordero MD in [place]> 11/28/161626 Dictated By: Hansel Cordero MD Dictated Date/Time: 11/28/161626 Transcribed Date/Time: 11/28/16 162 Copy to: CC:Clifford Aranda MD; Andrae Camacho MD Imaging - [facility] Imaging - [facility] Imaging - [facility] 1 of 2 Patient Name: TRENT AGGARWAL Medical Record#: [id number] Ordering Physician: Andrae Camacho MD Acct.#: [id number] : 1960 Age: 56 Sex: M Location: EMERGENCY DEPARTMENT Exam Date: 11/28/16 1226 ADM Status: REG ER Order Information: CHEST AP PORTABLE Accession Number: [id number] CPT: 95557 INDICATION: Chest pain. COMPARISON: Comparison is made with a prior chest x-ray study from July. TECHNIQUE: A portable view of the chest was obtained. FINDINGS: The heart is mildly enlarged and unchanged. The lungs are clear. No pleural effusion is seen. IMPRESSION: MILD CARDIOMEGALY, UNCHANGED. <Electronically signed by Fareed Thakur MD in [place]> 11/28/16 1337 Dictated By: Fareed Thakur MD Dictated Date/Time: 11/28/16 1337 Transcribed Date/Time: 11/28/16 1325 Copy to: CC:Clifford Aranda MD; Andrae Camacho MD Imaging - [facility] Imaging - [place] [facility] Imaging [facility] [address] [place] [address] ph [phone] ph [phone] ph ([phone]) 1 of 1 EKG Report: EKG Rate 92 HI 177 QTc 448 QRS axis 9 VEs. Large R V1 - ? old posterior wall SC Other Results/Reports: 08/11/2016 - not date - conclusion from transesophageal echocardiogram: was used as contrast for the bubble study. Image 64. Conclusions Mild concentric left ventricular hypertrophy is observed. There is a focal wall motion abnormality present. There is inferior/posterior hypokinesis to akinesis seen. There is mildly decreased left ventricular systolic function. The estimated ejection fraction is 40-45%. The left atrium is mildly dilated. The right ventricular global systolic function is mildly reduced. A prominent eustachian valve is noted in the right atrium. The aortic valve leaflets are mildly thickened. The mitral valve leaflets appear normal. There is a redundant chordae seen in the LV. There is mild to moderate mitral regurgitation. There is a mild central jet as well as a mild to moderate eccentric wall jet directed along the posterior and lateral atrial quarles. MR probably moderate overall. There is mild tricuspid regurgitation. The aortic root is normal in size. There is minimal atherosclerotic plaque seen in the descending aorta. 3 of 4 pulmonary veins were visualized and interrogated with Doppler. No reversal noted in those veins. 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 In favor - BNP much higher than usual, I think there is some edema on the CXR (my read) - though not seen on CT scan. The cause may be multifactorial - systolic/diastolic CHF, mitral valve disease. There may be an ischemic component. I have discussed the above with Dr. Kelly Santacruz who will consult for cardiology. I note that he has a recent transthoracic echocardiogram with Dr. Moser as an outpatient. We need to consider changing his medication to account for CHF. It is possible he had a dysrhythmia that precipitated this problem and has not been detected in the hospital - an event monitor may be a possibility. 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 (Chronic) He has hyperglycemia - very unusual for the patient, most likely due to the epinephrine response to the pulmonary edema Diverticulosis (Chronic) secondary diagnosis Essential (primary) hypertension (Chronic) This has run higher recently - we may need to increase the losartan further Hypercholesteremia (Chronic) secondary diagnosis Nephrolithiasis (Chronic) secondary diagnosis Obesity, morbid, BMI 50 or higher (Chronic) Major comorbidity PTSD (post-traumatic stress disorder) (Chronic) I discussed with the patient if this could be a panic attack - he states he rarely has these and they manifest differently. Primary hypothyroidism (Chronic) recheck TFTs. I discussed the above with the patient and he agrees to management 30 mins spent with the patient and 20 mins studying records.
[2016-11-29] MEDS ORDERED: Losartan TAB* 25 MG PO SCH (09:00)
[2016-11-29] MEDS ORDERED: Potassium Chlor TAB* 20 MEQ TAB.ER PO SCH (09:00)
[2016-11-29] MEDS ORDERED: Metoprolol Succinate XL TAB* 50 MG PO SCH (09:00)
[2016-11-29] MEDS ORDERED: Furosemide TAB* 40 MG PO SCH (09:00)
[2016-11-29] MEDS: Insulin LISPRO* 1 UNITS UNIT SUBCUT SCH ×4 (09:17→21:49)
[2016-11-29] MEDS: Losartan TAB* 25 MG PO SCH (09:18)
[2016-11-29] MEDS: Clopidogrel TAB* 75 MG PO SCH (09:18)
[2016-11-29] MEDS: Atorvastatin* 80 MG TAB PO SCH (09:18)
[2016-11-29] MEDS: Topiramate TAB(*) 100 MG PO SCH (09:25)
[2016-11-29] MEDS: Aspirin EC Low Dose* 81 MG TAB.EC PO SCH (09:26)
[2016-11-29] MEDS: BuPROPion XL* 300 MG TAB.XL PO SCH (09:26)
[2016-11-29 10:58] LABS: TSH (Thyroid Stimulating Horm) 2.99 mcIU/mL (0.34-5.60)
[2016-11-29 11:08] LABS: Free T4 1.1 ng/dL (0.61-1.12)
[2016-11-29 11:10] LABS: Total T3 0.65 ng/mL (0.87-1.78)
[2016-11-29] MEDS: Enoxaparin(*) 40 MG/0.4 ML SYR SUBCUT SCH (18:12)
--- NOTE | 2016-11-29 19:33 | CONS ---
CC: Clifford Aranda MD; Manuel Moser MD CARDIOLOGY CONSULTATION: DATE OF CONSULT: 11/29/16 REASON FOR CONSULTATION: Congestive heart failure. CHIEF COMPLAINT: Shortness of breath and leg weakness. HISTORY OF PRESENT ILLNESS: Mr. Cardoso is a 56-year-old gentleman followed by my partner, Dr. Manuel Moser, for coronary artery disease with coronary ectasia and ssvq-gt-[id number] occlusions on 01 10 echo. The patient has multiple atherosclerotic risks, morbid obesity, diabetes, and hypertension. He rela tively recently had his diabetic medications adjusted and he stopped his Topamax. He was put on a f ew pounds, slowly going from his baseline of 302 to around 313 but then a week ago, he very rapidly went up to 333 pounds. He denies any awareness of dietary indiscretion that would have led to this weight gain and denies any use of nonsteroidal medications. The patient initially did not have symptoms from the weight gain until the day before admission or d ay of admission. He said he awoke, is not really sure why he awoke. He went to the bathroom, had a bowel movement, and on getting up and going back to bed, he became very winded and his legs became very shaky as if they would not hold them up. He tried to go to sleep but he was getting progressiv dony more dyspnea. He then took got up to take a shower and was unable to due to dyspnea and wobbly legs. On admission to [facility], Lasix was initiated and he does feel better but not back to [facility]. He is able to walk around now. The patient has a past medical history of coronary artery disease, cardiac catheterization in 2010 s howed ectatic disease in the left main. The LAD was large caliber ectatic with 50% occlusion. The ramus intermedius was ectatic. The circumflex was large caliber codominant ectatic with a 50% occlu leila in the proximal OM branch, suggestion of circumflex dissection in addition to ectasia and occlu leila of the 70% distally. The right coronary artery is large caliber codominant ectatic, hazy with slow flow with a small caliber PDA. PAST MEDICAL HISTORY: 1. Hypertension. 2. Adult onset diabetes. 3. Cardiomyopathy. 4. Congestive heart failure. 5. Dyslipidemia. 6. Nephrolithiasis. 7. Morbid obesity. 8. Posttraumatic stress syndrome. 9. Hypothyroid disease. 10. Severe sleep apnea. 11. The patient states he picks at old mosquito bites from July. CURRENT INPATIENT MEDICATIONS: Include: 1. Tylenol p.r.n. 2. Aspirin 81 mg a day. 3. Lipitor 80 mg a day. 4. Bupropion 300 mg a day. 5. Plavix 75 mg a day. 6. Lovenox 40 mg q.24 hours. 7. Lasix 40 mg p.o. daily. 8. Lispro Humalog coverage. 9. Synthroid 100 mcg a day. 10. Cozaar 100 mg a day. 11. Toprol-XL 50 mg a day. 12. Potassium 20 mEq a day. 13. Topamax 200 mg a day. ALLERGIES: Include NEURONTIN and NOVOCAIN. FAMILY HISTORY: The patient's father before the patient was born, details unknown to the patie nt. As far as he knows, there is no prior history of atherosclerotic heart disease. SOCIAL HISTORY: The patient never smoked. He lives independently and alone, on disability. REVIEW OF SYSTEMS: Negative for changes in bowel or bladder habits. Positive for weight gain as de scribed above. No history of lower extremity edema or increasing abdominal girth. No change in pam etite. Having the bowel movement in the middle of the night was unusual but he denies fevers, chill s, sweats, hematuria, or dysuria. He denies chest pain, pressure, or heaviness. All other review o f systems is unremarkable. PHYSICAL EXAMINATION: The patient is 5 feet 6 inches, weighs 335 pounds with a BMI of 54. Vitals s igns on arrival to the emergency room, blood pressure 151/101, pulse 93, oxygen saturation 97% on ro om air, temperature 98.9. Vital signs today at the time of my exam, blood pressure 150/100, pulse i s 86 and regular, saturation is 96% on room air, respiratory rate 16. General appearance: Morbidly obese, older middle-aged gentleman, seated and standing in no acute distress. HEENT: Pupils are eq ual and round. Mucous membranes are moist. Tongue midline. Neck: Very thick from obesity and no a ppreciable increase in JVP. Lungs: Breath sounds are distant but clear. Free of wheezes, rales, o r rhonchi. Coronary: Also distant S1 and S2 regular without murmurs or rubs appreciated. Abdomen: Active bowel sounds, soft, and nontender. I could not get an adequate exam to evaluate for hepato splenomegaly and lower extremities were free of edema and warm. Psychological: Calm, cooperative, a nd pleasant. Neurologic: Awake, alert, and oriented to person, place, and time. Cranial nerves II through XII intact. Grossly normal sensory, motor function of the upper and lower extremities. He ambulates independently. Follows commands well. Speech is articulate. Skin: Head and arms, there are multiple punctate areas of scabbing. No rash on the back, lower legs. DIAGNOSTIC STUDIES/LAB DATA: A 12-lead ECG on arrival shows normal sinus rhythm, 96 beats per minut e, QRS axis of 0 with normal AV and IV conduction times. He has some nonspecific ST changes. No ev idence of acute changes. CT of the chest and thorax showed no evidence of pulmonary embolus, a some what limited exam. It does show bibasilar atelectasis and small bilateral pleural effusions. Recent outpatient echocardiogram from 10/24/16 showed moderate left ventricular hypertrophy and ejec tion fraction of 40% to 45% with mildly abnormal diastolic fillings, left atrial enlargement, mild-t o-moderate mitral insufficiency, mild dilatation of the ascending aorta and normal right ventricular function. White count 11, hemoglobin 13.9, platelets 169. Sodium 134, potassium 4.4, chloride 103, bicarb 25, BUN 15, creatinine 1.03, glucose 150. ALT of 16. Troponin #1 of 0.02, troponin #2 of 0.02. BNP of 320, up from 46 on his most recent comparison of 08/10/13. TSH 2.99, free T4 of 1.1, total T3 of 0 .65. ECG shows mildly enlarged cardiac silhouette, clear lungs. Pulse oximetry showed the patient' s oxygenation was less than 90%, 35% at the time for 1 hour 50 minute. IMPRESSION: In summary, Asha Cardoso is a very pleasant 56-year-old gentleman with coronar y ectasia and moderate atherosclerotic heart disease on cath 6 years ago. He has a [id number] decrease in systolic function as well as evidence of left ventricular diastolic dysfunction and elham ral insufficiency. The patient presents with relatively rapid weight gain and rather acute onset of orthopnea, leg weak ness, tachypnea, and shortness of breath. I concur with Dr. Aranda that this is very suspicious for congestive heart failure, although obstructiv e sleep apnea and restrictive lung disease may well be playing a role as well. Mr. Cardoso is improved with diuretics and he may well benefit from regular diuretics, currentl y I would attempt to diurese him down to his dry weight. I think this can be done relatively gently with left ventricular hypertrophy. In addition to Lasix, with his cardiomyopathy, he may benefit f rom Aldactone, either with it or down the road alternating with it. I think once he hits his dry we ight, he may only need diuretics 2 or 3 days a week. According to the patient, his Cozaar was recently increased, which I concur with and you may want to consider converting his pure beta-wayne to Coreg in light of his high blood pressure and diminish ed systolic function. No lifestyle issues were identified but he will need to be careful about his diet and lifestyle life long and he should continue with efforts to lose weight and improve his exercise. Additional recomm endations will be made pending his response to the above measures. [id number]/[facility] #: [id number]
[2016-11-30] MEDS: Levothyroxine TAB* 100 MCG TAB PO SCH (05:26)
[2016-11-30 05:31] LABS: Hematocrit 44 % (42-52); Hemoglobin 14.4 g/dl (14.0-18.0); Mean Corpuscular HGB Conc 33 g/dl (31-36); Mean Corpuscular Hemoglobin 30 pg (27-31); Mean Corpuscular Volume 91 fL (80-94); Mean Platelet Volume 11 um3 (7.4-10.4); Red Blood Count 4.81 10^6/ul (4.0-5.4); Red Cell Distribution Width 14 % (10.5-15); White Blood Count 9.5 10^3/ul (3.5-10.8)
[2016-11-30 05:47] LABS: BUN/Creatinine Ratio 15.3 (8-20); C Reactive Protein 54.11 mg/L (< 5.00); Calcium 9.7 mg/dL (8.6-10.3); EGFR African American 88.1 (>60); EGFR Non-African American 68.5 (>60); Potassium 3.3 mmol/L (3.5-5.0)
--- NOTE | 2016-11-30 08:07 | PN ---
Subjective - Subjective Reason for Note: Discharge Note History: see discharge summary (dictated) He is feeling well. He had a major diuresis. He walked around the unit without dyspnea. 1 minute of "angina" while seated - not unusual Active Problems: Active Problems Dyspnea (Acute) R06.00 Although he has both heart and lung disease, I suspect the acute change which resolved without intervention was related to anxiety. Mucous pugging is also possible. He appears to be at [facility] now, O2 sat 96% on RA. I ordered overnight oximetry on RA, no BIPAP. He uses nasal BIPAP at home which we don't have. Tele, second troponin pending. Moderate mitral regurgitation (Acute) I34.0 Systolic and diastolic CHF, acute (Acute) I50.41 Coronary artery disease (Chronic) I25.10 He will get his doses of ASA and clopidogrel for today. All meds ordered except metformin. Diverticulosis (Chronic) K57.90 Essential (primary) hypertension (Chronic) I10 Losartan and metoprolol ordered. Hypercholesteremia (Chronic) E78.0 Statin ordered. Nephrolithiasis (Chronic) N20.0 Obesity, morbid, BMI 50 or higher (Chronic) E66.01 BMI 54.2. PTSD (post-traumatic stress disorder) (Chronic) F43.10 Primary hypothyroidism (Chronic) E03.9 Home dose levothyroxine ordered. TSH wnl 08/2016. 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 Metformin on hold. Current Medications: Current Medications Acetaminophen (Tylenol Tab*) 650 mg PO Q4H PRN PRN Reason: HEADACHE Last Admin: 11/29/16 05:10 Dose: 650 mg Aspirin (Aspirin Ec Low Dose*) 81 mg PO DAILY [facility] Last Admin: 11/29/16 09:26 Dose: 81 mg Atorvastatin Calcium (Lipitor*) 80 mg PO DAILY [facility] Last Admin: 11/29/16 09:18 Dose: 80 mg Bupropion HCl (Bupropion Xl*) 300 mg PO DAILY [facility] Last Admin: 11/29/16 09:26 Dose: 300 mg Carvedilol (Coreg Tab*) 6.25 mg PO BID [facility] Clopidogrel Bisulfate (Plavix Tab*) 75 mg PO DAILY [facility] Last Admin: 11/29/16 09:18 Dose: 75 mg Dextrose (D50w Syringe 50 Ml*) 12.5 gm IV PUSH .FOR FS < 60 - SS PRN PRN Reason: FS < 60 Enoxaparin Sodium (Lovenox(*)) 40 mg SUBCUT Q24H [facility] Last Admin: 11/29/16 18:12 Dose: 40 mg Furosemide (Lasix Tab*) 20 mg PO DAILY [facility] Insulin Human Lispro (Humalog*) 0 units SUBCUT ACHS [facility] PRN Reason: Protocol Last Admin: 11/29/16 21:49 Dose: 3 units Levothyroxine Sodium (Synthroid Tab*) 100 mcg PO 0600 [facility] Last Admin: 11/30/16 05:26 Dose: 100 mcg Losartan Potassium (Cozaar Tab*) 100 mg PO DAILY [facility] Last Admin: 11/29/16 09:18 Dose: 100 mg Spironolactone (Aldactone Tab*) 25 mg PO DAILY [facility] Topiramate (Topamax(*)) 200 mg PO DAILY [facility] Last Admin: 11/29/16 09:25 Dose: 200 mg Home Medications: Home Medications Medication Instructions Recorded Confirmed Type Clopidogrel TAB* [Plavix TAB*] 75 mg PO DAILY 08/10/13 11/28/16 History metFORMIN* [Glucophage*] 1,000 mg PO BID WITH MEALS 12/18/14 11/28/16 History Aspirin EC Low Dose* [Ecotrin EC 81 mg PO DAILY 11/28/16 11/28/16 History Low Dose*] Atorvastatin* [Lipitor 80 MG*] 80 mg PO DAILY 11/28/16 11/28/16 History BuPROPion XL* [Bupropion XL*] 450 mg PO DAILY 11/28/16 11/29/16 History Levothyroxine TAB* [Synthroid 100 100 mcg PO DAILY 11/28/16 11/28/16 History MCG TAB*] Topiramate TAB(*) [Topamax 100 200 mg PO DAILY 11/28/16 11/28/16 History MG(*)] traZODone TAB* [Desyrel TAB*] 50 - 100 mg PO BEDTIME PRN 11/28/16 11/28/16 History Allergies: Allergies Allergy/AdvReac Type Severity Reaction Status Date / Time Gabapentin Allergy Intermediate LOW BLOOD Verified 11/28/16 10:43 PRESSURE Procaine [From Novocain] Allergy Intermediate Hives Verified 11/28/16 10:43 Objective - Vital Signs Vital Signs: Vital Signs 11/29/16 11/29/16 11/29/16 10:24 11:42 20:00 Temperature 98.5 F Pulse Rate 86 Respiratory 20 16 18 Rate Blood Pressure 150/100 (mmHg) O2 Sat by Pulse 96 Oximetry 11/29/16 11/29/16 11/30/16 20:08 23:44 04:32 Temperature 98.9 F 98.8 F 97.1 F Pulse Rate 86 85 81 Respiratory 16 12 16 Rate Blood Pressure 172/99 164/97 167/103 (mmHg) O2 Sat by Pulse 95 99 100 Oximetry - Intake and Output Intake and Output: Intake & Output 11/27/16 11/28/16 11/29/16 11/30/16 11:59 11:59 11:59 11:59 Intake Total 1040 Output Total 4720 Balance -3680 Weight 335 lb 1.6 oz 329 lb 4.8 oz Intake: Oral 1040 Output: Urine 4720 Other: # Bowel Movements 0 # Voids 0 ADLs: Meal Record Start: 11/28/16 19: 38 Freq: DAILY@0900,1400,1800 Status: Active Document 11/29/16 14:00 [id number] (Rec: 11/29/16 14:34 [id number]) Document 11/29/16 18:00 [id number] (Rec: 11/29/16 22:47 [id number] TELE-C32) ADLs: Meal Record Start: 11/28/16 21: 03 Freq: DAILY@0900,1400,1800 Status: Inactive Created 11/28/16 21:03 [id number] (Rec: 11/28/16 21:03 [id number] TELE-C05) Intake and Output Start: 11/28/16 19: 38 Freq: DAILY@0600,1400,2200 Status: Active Document 11/29/16 14:00 [id number] (Rec: 11/29/16 14:34 [id number] TELE-C11) Document 11/29/16 22:00 [id number] (Rec: 11/29/16 22:48 [id number] TELE-C32) Document 11/30/16 05:29 [id number] (Rec: 11/30/16 05:29 [id number] TELE-L04) Document 11/30/16 05:59 [id number] (Rec: 11/30/16 06:04 [id number] [facility] [place] Intake and Output Start: 11/28/16 21: 03 Freq: DAILY@0600,1400,2200 Status: Inactive Created 11/28/16 21:03 [id number] (Rec: 11/28/16 21:03 [id number] TELE-C05) Document 11/28/16 22:00 [id number] (Rec: 11/28/16 22:14 [id number] TELE-C32) Document 11/29/16 06:00 [id number] (Rec: 11/29/16 06:28 [id number] TELE-C33) - Physical Exam General: No Cyanosis, No Anemia, No Jaundice, No Clubbing Lungs and Chest: Yes: Chest Expansion Full, Chest Expansion Symetrica, Percussion Note Resonant, Vessicular Breath Sounds. No: Crackles, Wheezes Heart Rate and Rhythm: Regular Additional Cardiovascular: Yes: Normal Heart Sounds. No: Heart Murmur, Pedal Edema Results - Results Lab Results: Laboratory Results - last 24 hr 11/29/16 11/29/16 11/29/16 10:08 11:24 17:06 WBC RBC Hgb Hct MCV MCH MCHC RDW Plt Count MPV Neut % (Auto) Lymph % (Auto) [place] % (Auto) Eos % (Auto) Baso % (Auto) Absolute Neuts (auto) Absolute Lymphs (auto) Absolute Monos (auto) Absolute Eos (auto) Absolute Basos (auto) Absolute Nucleated RBC Nucleated RBC % Sodium Potassium Chloride Carbon Dioxide Anion Gap BUN Creatinine Est GFR ( Amer) Est GFR (Non-Af Amer) BUN/Creatinine Ratio Glucose POC Glucose (mg/dL) 157 H 134 H Calcium Magnesium 2.0 C-Reactive Protein B-Natriuretic Peptide TSH 2.99 Free T4 1.10 Total T3 0.65 L 11/29/16 11/30/16 11/30/16 19:41 04:52 04:52 WBC 9.5 RBC 4.81 Hgb 14.4 Hct 44 MCV 91 MCH 30 MCHC 33 RDW 14 Plt Count 167 MPV 11 H Neut % (Auto) 57.8 Lymph % (Auto) 32.2 [place] % (Auto) 7.6 Eos % (Auto) 1.7 Baso % (Auto) 0.7 Absolute Neuts (auto) 5.5 Absolute Lymphs (auto) 3.1 Absolute Monos (auto) 0.7 Absolute Eos (auto) 0.2 Absolute Basos (auto) 0.1 Absolute Nucleated RBC 0 Nucleated RBC % 0 Sodium 137 Potassium 3.3 L Chloride 104 Carbon Dioxide 23 Anion Gap 10 BUN 17 Creatinine 1.11 Est GFR ( Amer) 88.1 Est GFR (Non-Af Amer) 68.5 BUN/Creatinine Ratio 15.3 Glucose 104 H POC Glucose (mg/dL) 167 H Calcium 9.7 Magnesium C-Reactive Protein 54.11 H B-Natriuretic Peptide TSH Free T4 Total T3 11/30/16 11/30/16 04:52 07:28 WBC RBC Hgb Hct MCV MCH MCHC RDW Plt Count MPV Neut % (Auto) Lymph % (Auto) [place] % (Auto) Eos % (Auto) Baso % (Auto) Absolute Neuts (auto) Absolute Lymphs (auto) Absolute Monos (auto) Absolute Eos (auto) Absolute Basos (auto) Absolute Nucleated RBC Nucleated RBC % Sodium Potassium Chloride Carbon Dioxide Anion Gap BUN Creatinine Est GFR ( Amer) Est GFR (Non-Af Amer) BUN/Creatinine Ratio Glucose POC Glucose (mg/dL) 125 H Calcium Magnesium C-Reactive Protein B-Natriuretic Peptide 162 H TSH Free T4 Total T3 Assessment - Problem List Assessment: Patient Problems Dyspnea (Acute) Moderate mitral regurgitation (Acute) Systolic and diastolic CHF, acute (Acute) Coronary artery disease (Chronic) Diverticulosis (Chronic) Essential (primary) hypertension (Chronic) Hypercholesteremia (Chronic) Nephrolithiasis (Chronic) Obesity, morbid, BMI 50 or higher (Chronic) PTSD (post-traumatic stress disorder) (Chronic) Primary hypothyroidism (Chronic) 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 Kelly Santacruz: 1. furosemide 20 mg qdaily/spironolactone 25 mg qdaily - until dry weight and then once or twice per week 2. change metoprolol to carvedilol 3. Increase losartan to 100 mg qdaiy. Patient understands and will follow up with me in 5 days
[2016-11-30] MEDS ORDERED: Carvedilol TAB* 6.25 MG PO SCH (09:00)
[2016-11-30] MEDS ORDERED: Spironolactone TAB* 25 MG PO SCH (09:00)
[2016-11-30] MEDS ORDERED: Furosemide TAB* 20 MG PO SCH (09:00)
[2016-11-30] MEDS: Clopidogrel TAB* 75 MG PO SCH (09:26)
[2016-11-30] MEDS: Atorvastatin* 80 MG TAB PO SCH (09:26)
[2016-11-30] MEDS: Aspirin EC Low Dose* 81 MG TAB.EC PO SCH (09:26)
[2016-11-30] MEDS: BuPROPion XL* 300 MG TAB.XL PO SCH (09:26)
[2016-11-30] MEDS: Topiramate TAB(*) 100 MG PO SCH (09:27)
[2016-11-30] MEDS: Insulin LISPRO* 1 UNITS UNIT SUBCUT SCH ×2 (09:30→12:10)
--- NOTE | 2016-11-30 11:01 | DS ---
DISCHARGE SUMMARY: DATE OF ADMISSION: 11/28/16 DATE OF DISCHARGE: 11/30/16 DISCHARGE DIAGNOSIS: Acute congestive cardiac failure, both systolic and diastolic, with pulmonary edema. COMORBIDITIES: Systolic regional wall motion abnormality with evidence of previous posterior myocardial infarction, diastolic dysfunction with LVH, moderate mitral valve disease. SECONDARY DIAGNOSES: 1. Morbid obesity. 2. Type 2 diabetes mellitus. 3. Hypertension. 4. Dyslipidemia. 5. Posttraumatic stress disorder. 6. Inactive diverticulosis. 7. Inactive nephrolithiasis. 8. Primary hypothyroidism. HISTORY OF PRESENT ILLNESS: Asha Cardoso is a 56[place]year[place]old [place] male. His presentation is documented in Dr. King Holden's admitting history and physical which is part of the electronic medical record. He had noted on waking up at 2:30 a.m. for bowel movement that he became acutely dyspneic. This worsened overnight and so that he could not walk and was short of breath at rest. He was orthopneic. He had no chest pain, palpitations. He had diaphoresis over his forehead. No presyncope; however, his legs were very weak. He called an ambulance and went to the emergency department. There, he was found to have a BNP of 320 which is much higher than prior measurements. He recovered when he was given nitroglycerin. INITIAL PHYSICAL EXAMINATION: Temperature 98.9, blood pressure 151/101, pulse 93, respirations 19, oxygen saturation 97%. PHYSICAL EXAMINATION: Chest was clear. He had no peripheral edema. Heart sounds were normal. Oxygen saturation was 96%. He was hemodynamically stable. INITIAL INVESTIGATIONS: White count 11, hemoglobin 13.9, hematocrit 43, platelets 169. Chemistry: Sodium 134, potassium 4.4, chloride 103, bicarbonate 25, BUN 15, creatinine 1.03, eGFR 75, glucose 150. Normal LFTs. BNP 320. EKG showed sinus rhythm with signs of large R waves in V1 suggestive of previous posterior wall myocardial infarction. INITIAL IMPRESSION: The attending physician felt it might be anxiety. I saw him on 11/29/16. At that time, his dyspnea had improved. He has marked obesity making it difficult to hear his lung sounds but, there were no crackles or wheezes. Cardiac evaluation was normal. I reviewed his chest x-ray and his CTA, which was performed to rule out PE. This showed to my eye some mild pulmonary edema, no evidence of pulmonary embolism. His last echocardiogram, 08/11/15, showed evidence of posterior inferior wall motion abnormality with ejection fraction reduced to 40% to 45%, left ventricular hypertrophy, and [id number] mitral regurgitation. My impression was that he had congestive cardiac failure with some pulmonary edema as witnessed by the increase in his BNP and his dyspnea. I gave him furosemide 40 mg by mouth and on just that one dose, he lost 4 L of fluid. He was seen in consultation by Dr. Kelly Santacruz. Her report is part of the electronic medical record. She concurred with me about the CHF and made some suggestions: 1. Increase losartan. 2. Change from metoprolol to carvedilol. 3. Bring him down to his usual dry weight with furosemide and then give him one dose every once or twice a week. On the day of discharge, no symptoms whatsoever. He has walked around the floor. He has had no paroxysmal nocturnal dyspnea or orthopnea. EXAMINATION ON THE DAY OF DISCHARGE: He is looking well, alert and oriented, hemodynamically stable. Vital Signs: Temperature 97.1, pulse 81, respirations 16, blood pressure 167/103, oxygen saturation 100%. No cyanosis, anemia, jaundice, clubbing, or lymphadenopathy. Cardiovascular System: Pulse regular. Normal character and volume. Venous pressure not visible. Heart sounds are normal. No added sounds or murmur. No pedal edema. Respiratory System: Chest was clear. Abdomen: Benign. Nervous System: Alert and oriented. Normal speech. Cranial nerves II through XII are intact and his power was grossly intact. LABORATORY DATA: Chemistry, 11/30/16, of note, his potassium was 3.3, otherwise it was benign. His BNP also improved to 162. ASSESSMENT AND PLAN: 1. Congestive cardiac failure. This is secondary to systolic and diastolic dysfunction plus mitral regurgitation. I have started him on carvedilol, increase the dose of losartan, and I started him on furosemide. He will follow up closely with me as an outpatient and obtain a weighing scale so they can check his weight on a daily basis. He is 330 pounds and needs to have a special scale as commercial ones are not available. 2. Coronary artery disease. He will remain on Plavix and aspirin. 3. Essential hypertension. This is running high. I will titrate up his dose of carvedilol. 4. Hypercholesterolemia. Continue high-intensity statin. 5. Morbid obesity. He will remain on topiramate to help him lose weight. 6. Type 2 diabetes mellitus. His blood sugar was high during his hospitalization than has been as an outpatient most likely due to the epinephrine caused by his congestive heart failure. 7. Primary hypothyroidism. Stay on his current medication. DISCHARGE MEDICATIONS: 1. Carvedilol 6.25 mg twice daily. 2. Furosemide 20 mg daily. 3. Losartan 100 mg daily. 4. Spironolactone 25 mg daily. 5. Topiramate 200 mg daily. 6. Clopidogrel 75 mg daily. 7. He will restart metformin at 1000 mg twice daily. 8. Atorvastatin 100 mg daily. 9. Bupropion 450 mg daily. 10. Trazodone 50 to 100 mg q.h.s. 11. Aspirin 81 mg daily. 12. Levothyroxine 100 mcg daily. DISCHARGE FOLLOWUP: He will follow up in my office in 2 to 3 days. [id number]/[facility] #: [id number] [place]
[2016-11-30 11:29] VITALS: BP 139/81
[2016-11-30] MEDS: Losartan TAB* 25 MG PO SCH (12:10)
== END 2016-11-30 13:00 | disposition home health service (06) | DRG 194 ==
LOC: ED 10:29 → MEDTELE 19:08 → OBSVTOIN 11-29 08:51
PROVIDERS: ADMIT Internal Medicine; ATTEND Internal Medicine
DX: I11.0 Hypertensive heart disease with heart failure (principal); Z68.43 Body mass index [BMI] 50.0-59.9, adult; E11.40 Type 2 diabetes mellitus with diabetic neuropathy, unspecified; E11.39 Type 2 diabetes mellitus with other diabetic ophthalmic complication; I42.9 Cardiomyopathy, unspecified; E66.01 Morbid (severe) obesity due to excess calories; I50.41 Acute combined systolic (congestive) and diastolic (congestive) heart failure; E78.5 Hyperlipidemia, unspecified; F43.10 Post-traumatic stress disorder, unspecified; K57.90 Diverticulosis of intestine, part unspecified, without perforation or abscess without bleeding; N20.0 Calculus of kidney; E03.9 Hypothyroidism, unspecified; I25.2 Old myocardial infarction; I34.0 Nonrheumatic mitral (valve) insufficiency; I25.10 Atherosclerotic heart disease of native coronary artery without angina pectoris; Z79.02 Long term (current) use of antithrombotics/antiplatelets; Z79.82 Long term (current) use of aspirin; Z79.84 Long term (current) use of oral hypoglycemic drugs; G47.33 Obstructive sleep apnea (adult) (pediatric); Z85.51 Personal history of malignant neoplasm of bladder; Z88.8 Allergy status to other drugs, medicaments and biological substances; E11.51 Type 2 diabetes mellitus with diabetic peripheral angiopathy without gangrene; J45.909 Unspecified asthma, uncomplicated; F41.9 Anxiety disorder, unspecified; F32.9 Major depressive disorder, single episode, unspecified
CPT/HCPCS: 36415; 71010; 71275; 80048; 80053; 83605; 83735; 83880; 84439; 84443; 84479; 84484; 85025; 86140; 93005; 94762; A9270-GY; G0378; J1650; Q9967

== ENCOUNTER 2016-12-11 12:34 | Emergency (ER) | payer OTHER ==
[2016-12-11] MEDS ORDERED: Ondansetron ODT TAB* 4 MG PO ONE (14:52)
[2016-12-11] MEDS ORDERED: Aspirin Low Dose CHEW TAB* 81 MG PO ONE (14:53)
--- NOTE | 2016-12-11 14:54 | UC ---
Shortness of Breath HPI - HPI Summary HPI Summary: 56 yo male with a 2 day hx of progressively worsening dyspnea on exertion/ nausea. Today he has had episodes of diaphoresis. States he has had brief episodes angina pain. Currently feels weak and a little light headed. No pain Was recently hospitalized for CHF Hx CAD/DM - History of Current Complaint Chief Complaint: UCGeneralIllness Stated Complaint: NAUSEA Time Seen by Provider: 12/11/16 14:27 Hx Obtained From: Patient Onset/Duration: Sudden Onset, Lasting Days Timing: Constant Current Severity: Moderate Dyspnea At: Exertion Aggrevating Factors: Nothing Alleviating Factors: Nothing Associated Signs & Symptoms: Positive: Diaphoresis - Allergy/Home Medications Allergies/Adverse Reactions: Allergies Allergy/AdvReac Type Severity Reaction Status Date / Time Gabapentin Allergy Intermediate LOW BLOOD Verified 12/11/16 13:55 PRESSURE Procaine [From Novocain] Allergy Intermediate Hives Verified 12/11/16 13:55 PMH/Surg Hx/FS Hx/Imm Hx Previously Healthy: No Endocrine History Of: Reports: Diabetes, Thyroid Disease, Hypothyroidism Cardiovascular History Of: Reports: Cardiac Disorders - CHF, Hypertension, Congestive Heart Failure Denies: Pacemaker/ICD, Deep Vein Thrombosis Respiratory History Of: Reports: Asthma - CHILDHOOD Denies: COPD, Pneumonia, Pulmonary Embolism GI/ History Of: Reports: Kidney Stones Denies: Ulcer, Gastrointestinal Bleed, Gall Bladder Disease Neurological History Of: Reports: TIA, CVA Denies: Dementia, Seizures, Migraine Psychological History Of: Reports: Anxiety - ON MEDICATION FOR, Depression - ON MEDICATION FOR Cancer History Of: Denies: Lung Cancer - Surgical History Surgical History: Yes Surgery Procedure, Year, and Place: 1969 REPAIR FROM A DOG BITE, [place]. 2010 HEART CATHERIZATION, [facility] [place]. 12/25/2014 CYSTOSCOPY BILATERAL RETROGRADE, BILATERAL STENT INSERTION, URETEROSCOPY, TUR BLADDER LESION, [facility] [place]. 01/11/2015 ESWL, CYSTOSCOPY, RIGHT STENT REMOVAL, [facility] [place] - Family History Known Family History: Positive: Other - GB disease Negative: Cardiac Disease - Social History Alcohol Use: None Substance Use Type: None Smoking Status (MU): Never Smoked Tobacco Have You Smoked in the Last Year: No - Immunization History Most Recent Influenza Vaccination: fall 2015 Most Recent Tetanus Shot: unknown Most Recent Pneumonia Vaccination: fall 2015 Review of Systems Constitutional: Fatigue Skin: Negative Eyes: Negative ENT: Negative Respiratory: Shortness Of Breath Cardiovascular: Negative Gastrointestinal: Negative Genitourinary: Negative Motor: Negative Neurovascular: Negative Musculoskeletal: Negative Neurological: Weakness Psychological: Negative All Other Systems Reviewed And Are Negative: Yes Physical Exam Triage Information Reviewed: Yes Appearance: Well-Appearing, No Pain Distress, Obese Vital Signs: Initial Vital Signs Temp 96.8 F 12/11/16 13:49 Pulse 64 12/11/16 13:49 Resp 20 12/11/16 13:49 BP 96/63 12/11/16 13:49 Pulse Ox 97 12/11/16 13:49 Vital Signs Reviewed: Yes Eyes: Positive: Conjunctiva Clear ENT: Positive: Hearing grossly normal. Negative: Nasal congestion, Nasal drainage, Trismus, Muffled/hoarse voice Neck: Positive: Supple, Nontender Respiratory: Positive: Lungs clear, Normal breath sounds, No respiratory distress, No accessory muscle use Cardiovascular: Positive: RRR, No Murmur Abdomen Description: Positive: Nontender, Soft. Negative: CVA Tenderness (R), CVA Tenderness (L) Bowel Sounds: Positive: Present Neurological: Positive: Alert Skin Exam: Normal Diagnostics - EKG Cardiac Rate: NL Ectopy: PVCs - ventricular trigeminy ST Segment: Non-Specific Shortness of Breath Dx - Course Course Of Treatment: d/w Dr Garcia - Differential Dx/Diagnosis Provider Diagnoses: weakness/dyspnea/diaporesis. venticular trigeminy. hx CAD Discharge - Discharge Plan Condition: Stable Disposition: TRANS HIGHER LVL OF CARE FAC Referrals: Clifford Aranda MD [Primary Care Provider] -
[2016-12-11 15:34] VITALS: BP 92/60
== END 2016-12-11 15:35 | disposition short-term general hospital (02) ==
LOC: UCEAST 12:34
DX: R53.1 Weakness (principal); R06.09 Other forms of dyspnea; R61 Generalized hyperhidrosis; R00.8 Other abnormalities of heart beat; I25.10 Atherosclerotic heart disease of native coronary artery without angina pectoris; Z88.4 Allergy status to anesthetic agent; Z88.8 Allergy status to other drugs, medicaments and biological substances
CPT/HCPCS: 93005; 99214; A9270-GY; G0463

== ENCOUNTER 2016-12-11 16:03 | Emergency (ER) | payer OTHER ==
[2016-12-11 16:32] VITALS: BP 108/70
[2016-12-11 16:57] LABS: Hematocrit 46 % (42-52); Hemoglobin 15.1 g/dl (14.0-18.0); Mean Corpuscular HGB Conc 33 g/dl (31-36); Mean Corpuscular Hemoglobin 30 pg (27-31); Mean Corpuscular Volume 91 fL (80-94); Mean Platelet Volume 10 um3 (7.4-10.4); Red Blood Count 5.09 10^6/ul (4.0-5.4); Red Cell Distribution Width 14 % (10.5-15); White Blood Count 10.1 10^3/ul (3.5-10.8)
[2016-12-11 17:10] LABS: Albumin 4.1 g/dL (3.2-5.2); BUN/Creatinine Ratio 14.8 (8-20); Calcium 9.9 mg/dL (8.6-10.3); EGFR African American 59.9 (>60); EGFR Non-African American 46.6 (>60); Globulin 3.3 g/dL (2-4); Potassium 4.5 mmol/L (3.5-5.0); Total Bilirubin 0.6 mg/dL (0.2-1.0); Total Protein 7.4 g/dL (6.4-8.9)
[2016-12-11 17:12] LABS: Troponin I 0.02 ng/mL (<0.04)
--- NOTE | 2016-12-11 17:15 | RAD ---
INDICATION: Shortness of breath. COMPARISON: Comparison is made with a prior chest x-ray study from [place] [id number] 2016. TECHNIQUE: Dual-energy PA and lateral views of the chest were obtained. FINDINGS: The heart is within normal limits in size. Mediastinal and hilar contours appear within normal limits. The lungs are hyperinflated and clear. No pleural effusion is seen. IMPRESSION: FINDINGS CONSISTENT WITH COPD, NO EVIDENCE FOR ACUTE FINDING.
[2016-12-11 19:00] LABS: C Reactive Protein 3.2 mg/L (< 5.00)
[2016-12-11 19:02] LABS: Troponin I 0.01 ng/mL (<0.04)
--- NOTE | 2016-12-11 20:15 | ED ---
Zbigniew Leung Adam, scribed for Clive Duff MD on 12/11/16 at 1636 . Complex/Multi-Sys Presentation - HPI Summary HPI Summary: Pt is a 56 year old male presenting with nausea, diaphoresis, and a feeling of "unease". He reports feeling uneasy and having decreased PO intake for the past 2 days. Last night he states that he only slept for 1-2 hours. This morning he began to experience lightheadedness, nausea, dry mouth, and cold sweats. He spoke with his PCP who advised him to get evaluated. 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 - History Of Current Complaint Chief Complaint: ED Hx Obtained From: Patient Onset/Duration: Gradual Onset, Lasting Days, Still Present Timing: Constant Severity Currently: Moderate Severity Initially: Mild Aggravating Factor(s): Nothing Alleviating Factor(s): Nothing Associated Signs And Symptoms: Positive: Nausea, Other - Diaphoresis, dry mouth , lightheadedness, decreased PO intake - Allergies/Home Medications Allergies/Adverse Reactions: Allergies Allergy/AdvReac Type Severity Reaction Status Date / Time Gabapentin Allergy Intermediate LOW BLOOD Verified 12/11/16 13:55 PRESSURE Procaine [From Novocain] Allergy Intermediate Hives Verified 12/11/16 13:55 PMH/Surg Hx/FS Hx/Imm Hx Endocrine/Hematology History: Reports: Hx Diabetes, Hx Thyroid Disease Denies: Hx Anemia, Hx Unexplained Bleeding Cardiovascular History: Reports: Hx Angina - HX, Hx Congenital Heart Disease, Hx Congestive Heart Failure, Hx Coronary Artery Disease, Hx Hypercholesterolemia , Hx Hypertension, Hx Peripheral Vascular Disease - ENLARGED BLOOD VESSELS, Hx Syncope, Hx Valvular Heart Disease - MR, Other Cardiovascular Problems/ Disorders - congenital heart disorder- arteries Denies: Hx Angioplasty, Hx Auto Implanted Cardiovert Defib, Hx Deep Vein Thrombosis, Hx Embolism, Hx Hypotension, Hx Pacemaker/ICD, Hx Rheumatic Fever Respiratory History: Reports: Hx Asthma - CHILDHOOD, Hx Sleep Apnea - on 3L Denies: Hx Chronic Bronchitis, Hx Chronic Obstructive Pulmonary Disease (COPD ), Hx Cystic Fibrosis, Hx Lung Cancer, Hx Pleural Effusion, Hx Pneumonia, Hx Pulmonary Edema, Hx Pulmonary Embolism, Hx Seasonal Allergies Comment Only: Other Respiratory Problems/Disorders - SLEEPS SITTING UP/ DIFFICULTY SLEEPING GI History: Reports: Hx Diverticulosis, Other GI Disorders - "SLIGHTLY INFLAMED LIVER" Denies: Hx Cirrhosis, Hx Crohn's Disease, Hx Gall Bladder Disease, Hx Gastroesophageal Reflux Disease, Hx Gastrointestinal Bleed, Hx Hiatal Hernia, Hx Irritable Bowel, Hx Jaundice, Hx Obstructive Bowel, Hx Ileostomy, Hx Pyloric Stenosis, Hx Ulcer History: Reports: Hx Kidney Stones, Other Problems/Disorders - uretral stents Denies: Hx Acute Renal Failure, Hx Benign Prostatic Hyperplasia, Hx Chronic Renal Failure, Hx Dialysis, Hx Kidney Infection Musculoskeletal History: Denies: Other Musculoskeletal History Sensory History: Reports: Hx Contacts or Glasses Denies: Hx Cataracts, Hx Eye Injury, Hx Eye Prosthesis, Hx Glaucoma, Hx Legally Blind, Hx Macular Degeneration, Hx Vision Problem, Hx Deafness, Hx Hearing Aid, Hx Hearing Problem, Other Sensory Impairments Opthamlomology History: Reports: Hx Contacts or Glasses Denies: Hx Cataracts, Hx Eye Injury, Hx Eye Prosthesis, Hx Glaucoma, Hx Legally Blind, Hx Macular Degeneration, Hx Vision Problem, Other Sensory Impairments Neurological History: Reports: Hx Headaches - from NTG, Hx Nerve Disease - neuropathy, C5 damaged, Hx Spinal Cord Injury - pt states trauma at coccyx many years ago, Hx Transient Ischemic Attacks (TIA) Denies: Hx Dementia, Hx Developmental Delay, Hx Migraine, Hx Seizures, Other Neuro Impairments/Disorders - possible TIA/CVA, neuropathies Psychiatric History: Reports: Hx Anxiety - ON MEDICATION FOR, Hx Depression - ON MEDICATION FOR, Hx Post Traumatic Stress Disorder Denies: Hx Panic Disorder - Cancer History Cancer Type, 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 2010 HEART CATHERIZATION, [facility] [place]. 12/25/2014 CYSTOSCOPY BILATERAL RETROGRADE, BILATERAL STENT INSERTION, URETEROSCOPY, TUR BLADDER LESION, [facility] [place]. 01/11/2015 ESWL, CYSTOSCOPY, RIGHT STENT REMOVAL, [facility] [place] Hx Anesthesia Reactions: No - Immunization History Date of Tetanus Vaccine: Unsure Date of Influenza Vaccine: 2011 Infectious Disease History: No Infectious Disease History: Denies: Hx Clostridium Difficile, Hx Hepatitis, Hx Human Immunodeficiency Virus (HIV), Hx of Known/Suspected MRSA, Hx Shingles, Hx Tuberculosis, Hx Known/ Suspected VRE, Hx Known/Suspected VRSA, History Other Infectious Disease, Traveled Outside the [place] in Last 30 Days - Family History Known Family History: Positive: Other - GB disease Negative: Cardiac Disease - Social History Occupation: Unemployed Lives: Alone Alcohol Use: None Hx Substance Use: No Substance Use Type: Reports: None Hx Tobacco Use: No Smoking Status (MU): Never Smoked Tobacco Have You Smoked in the Last Year: No Review of Systems Positive: Skin Diaphoresis, Other - Feeling "uneasy" Positive: Other - Dry mouth Positive: Nausea, Other - Decreased PO intake Neurological: Other - Lightheadedness All Other Systems Reviewed And Are Negative: Yes Physical Exam Triage Information Reviewed: Yes Vital Signs On Initial Exam: Initial Vitals Temp Pulse Resp BP Pulse Ox 98.6 F 80 15 108/70 96 12/11/16 16:15 12/11/16 16:15 12/11/16 16:15 12/11/16 16:15 12/11/16 16:15 Vital Signs Reviewed: Yes Appearance: Positive: No Pain Distress, Obese Skin: Positive: Warm, Skin Color Reflects Adequate Perfusion, Dry Head/Face: Positive: Normal Head/Face Inspection Eyes: Positive: Normal ENT: Positive: Normal ENT inspection Neck: Positive: Supple, Nontender Respiratory/Lung Sounds: Positive: Clear to Auscultation, Breath Sounds Present Cardiovascular: Positive: Other - Irregular HR Abdomen Description: Positive: Nontender, Soft Bowel Sounds: Positive: Present Musculoskeletal: Positive: Normal Neurological: Positive: Normal Psychiatric: Positive: Normal, Affect/Mood Appropriate Diagnostics - Vital Signs Vital Signs Temp Pulse Resp BP Pulse Ox 12/11/16 16:15 98.6 F 80 15 108/70 96 - Laboratory Lab Results: Lab Results 12/11/16 12/11/16 12/11/16 Range/Units 16:40 16:40 16:40 WBC 10.1 (3.5-10.8) 10^3/ul RBC 5.09 (4.0-5.4) 10^6/ul Hgb 15.1 (14.0-18.0) g/dl Hct 46 (42-52) % MCV 91 (80-94) fL MCH 30 (27-31) pg MCHC 33 (31-36) g/dl RDW 14 (10.5-15) % Plt Count 211 (150-450) 10^3/ul MPV 10 (7.4-10.4) um3 Neut % (Auto) 68.5 (38-83) % Lymph % (Auto) 24.4 L (25-47) % [place] % (Auto) 5.7 (1-9) % Eos % (Auto) 0.7 (0-6) % Baso % (Auto) 0.7 (0-2) % Absolute Neuts (auto) 6.9 (1.5-7.7) 10^3/ul Absolute Lymphs (auto) 2.5 (1.0-4.8) 10^3/ul Absolute Monos (auto) 0.6 (0-0.8) 10^3/ul Absolute Eos (auto) 0.1 (0-0.6) 10^3/ul Absolute Basos (auto) 0.1 (0-0.2) 10^3/ul Absolute Nucleated RBC 0.01 10^3/ul Nucleated RBC % 0.1 D-Dimer, Quantitative 228 (Less Than 230) ng/mL Sodium 135 (133-145) mmol/L Potassium 4.5 (3.5-5.0) mmol/L Chloride 102 (101-111) mmol/L Carbon Dioxide 27 (22-32) mmol/L Anion Gap 6 (2-11) mmol/L BUN 23 (6-24) mg/dL Creatinine 1.55 H (0.67-1.17) mg/dL Est GFR ( Amer) 59.9 (>60) Est GFR (Non-Af Amer) 46.6 (>60) BUN/Creatinine Ratio 14.8 (8-20) Glucose 102 H (70-100) mg/dL Lactic Acid (0.5-2.0) mmol/L Calcium 9.9 (8.6-10.3) mg/dL Total Bilirubin 0.60 (0.2-1.0) mg/dL AST 13 (13-39) U/L ALT 15 (7-52) U/L Alkaline Phosphatase 79 (34-104) U/L Troponin I 0.02 (<0.04) ng/mL C-Reactive Protein (< 5.00) mg/L B-Natriuretic Peptide ( - 100) pg/mL Total Protein 7.4 (6.4-8.9) g/dL Albumin 4.1 (3.2-5.2) g/dL Globulin 3.3 (2-4) g/dL Albumin/Globulin Ratio 1.2 (1-3) 12/11/16 12/11/16 12/11/16 Range/Units 16:40 16:40 18:36 WBC (3.5-10.8) 10^3/ul RBC (4.0-5.4) 10^6/ul Hgb (14.0-18.0) g/dl Hct (42-52) % MCV (80-94) fL MCH (27-31) pg MCHC (31-36) g/dl RDW (10.5-15) % Plt Count (150-450) 10^3/ul MPV (7.4-10.4) um3 Neut % (Auto) (38-83) % Lymph % (Auto) (25-47) % [place] % (Auto) (1-9) % Eos % (Auto) (0-6) % Baso % (Auto) (0-2) % Absolute Neuts (auto) (1.5-7.7) 10^3/ul Absolute Lymphs (auto) (1.0-4.8) 10^3/ul Absolute Monos (auto) (0-0.8) 10^3/ul Absolute Eos (auto) (0-0.6) 10^3/ul Absolute Basos (auto) (0-0.2) 10^3/ul Absolute Nucleated RBC 10^3/ul Nucleated RBC % D-Dimer, Quantitative (Less Than 230) ng/mL Sodium (133-145) mmol/L Potassium (3.5-5.0) mmol/L Chloride (101-111) mmol/L Carbon Dioxide (22-32) mmol/L Anion Gap (2-11) mmol/L BUN (6-24) mg/dL Creatinine (0.67-1.17) mg/dL Est GFR ( Amer) (>60) Est GFR (Non-Af Amer) (>60) BUN/Creatinine Ratio (8-20) Glucose (70-100) mg/dL Lactic Acid 2.2 H* (0.5-2.0) mmol/L Calcium (8.6-10.3) mg/dL Total Bilirubin (0.2-1.0) mg/dL AST (13-39) U/L ALT (7-52) U/L Alkaline Phosphatase (34-104) U/L Troponin I 0.01 (<0.04) ng/mL C-Reactive Protein 3.20 (< 5.00) mg/L B-Natriuretic Peptide 36 ( - 100) pg/mL Total Protein (6.4-8.9) g/dL Albumin (3.2-5.2) g/dL Globulin (2-4) g/dL Albumin/Globulin Ratio (1-3) Result Diagrams: 12/11/16 16:40 12/11/16 16:40 Lab Statement: Any lab studies that have been ordered have been reviewed, and results considered in the medical decision making process. - Radiology CXR Radiology Interpretation Completed By: Radiologist - IMPRESSION: FINDINGS CONSISTENT WITH COPD, NO EVIDENCE FOR ACUTE FINDING. - Additional Comments Diagnostic Additional Comments: Troponin I - 0.02 (16:40) Troponin I - 0.01 (18:36) Lactic Acid - 2.2 Complex Multi-Symp Course/Dx Course Of Treatment: Mr. Cardoso came in with some vague symptoms and the concern that this was his heart as he has had multiple problems and is diabetic. His W/U including two troponins was negative and he felt improved with symptomatic treatment. He will be D/C'd for close F/U with Dr. Aranda. His EDACS score is 14. - Diagnoses Provider Diagnoses: Chest pain Discharge - Discharge Plan Condition: Stable Disposition: HOME Patient Education Materials: Chest Pain (ED) Referrals: Clifford Aranda MD [Primary Care Provider] - Additional Instructions: Follow up with Dr. Aranda. The documentation as recorded by the Zbigniew hernandez Adam accurately reflects the service I personally performed and the decisions made by me, Clive Duff MD.
== END 2016-12-11 21:14 | disposition home or self-care (01) ==
LOC: ED 16:03
DX: R07.9 Chest pain, unspecified (principal); R61 Generalized hyperhidrosis; R42 Dizziness and giddiness; E11.9 Type 2 diabetes mellitus without complications; Z86.73 Personal history of transient ischemic attack (TIA), and cerebral infarction without residual deficits
CPT/HCPCS: 36415; 71020; 80053; 83605; 83880; 84484; 85025; 85379; 86140; 93005; 99214; 99282; A9270-GY; G0463

== ENCOUNTER 2017-03-23 14:00 | Emergency (ER) | payer OTHER ==
[2017-03-23 15:39] VITALS: BP 104/74
[2017-03-23 16:00] LABS: Hematocrit 45 % (42-52); Hemoglobin 14.8 g/dl (14.0-18.0); Mean Corpuscular HGB Conc 33 g/dl (31-36); Mean Corpuscular Hemoglobin 30 pg (27-31); Mean Corpuscular Volume 92 fL (80-94); Mean Platelet Volume 10 um3 (7.4-10.4); Red Blood Count 4.85 10^6/ul (4.0-5.4); Red Cell Distribution Width 14 % (10.5-15); White Blood Count 9.9 10^3/ul (3.5-10.8)
[2017-03-23 16:14] LABS: Albumin 3.9 g/dL (3.2-5.2); BUN/Creatinine Ratio 16.8 (8-20); Calcium 9.5 mg/dL (8.6-10.3); EGFR African American 76.6 (>60); EGFR Non-African American 59.5 (>60); Globulin 2.9 g/dL (2-4); Potassium 4.5 mmol/L (3.5-5.0); Total Bilirubin 0.3 mg/dL (0.2-1.0); Total Protein 6.8 g/dL (6.4-8.9)
--- NOTE | 2017-03-23 16:54 | ED ---
HPI Diabetic - HPI Summary HPI Summary: 57M w/ PMH of CHF presents for lab draw. He gained 7 pounds since last Sunday. His diet been consistent for past week and has been eating 1000 calories a day. Takes januvia and metformin for DM. He takes lasix every other day. He denies any chest pain, SOB, abdominal pain. He is here to check his BNP and CMP. He denies any increase in swelling in his legs. - History Of Current Complaint Chief Complaint: EDGeneral Time Seen by Provider: 03/23/17 15:01 - Allergies/Home Medications Allergies/Adverse Reactions: Allergies Allergy/AdvReac Type Severity Reaction Status Date / Time Gabapentin Allergy Intermediate LOW BLOOD Verified 03/23/17 15:36 PRESSURE Procaine [From Novocain] Allergy Intermediate Hives Verified 03/23/17 15:36 PMH/Surg Hx/FS Hx/Imm Hx Endocrine/Hematology History: Reports: Hx Diabetes, Hx Thyroid Disease Denies: Hx Anemia, Hx Unexplained Bleeding Cardiovascular History: Reports: Hx Angina - HX, Hx Congenital Heart Disease, Hx Congestive Heart Failure, Hx Coronary Artery Disease, Hx Hypercholesterolemia , Hx Hypertension, Hx Peripheral Vascular Disease - ENLARGED BLOOD VESSELS, Hx Syncope, Hx Valvular Heart Disease - MR, Other Cardiovascular Problems/ Disorders - congenital heart disorder- arteries Denies: Hx Angioplasty, Hx Auto Implanted Cardiovert Defib, Hx Deep Vein Thrombosis, Hx Embolism, Hx Hypotension, Hx Pacemaker/ICD, Hx Rheumatic Fever Respiratory History: Reports: Hx Asthma - CHILDHOOD, Hx Sleep Apnea - on 3L Denies: Hx Chronic Bronchitis, Hx Chronic Obstructive Pulmonary Disease (COPD ), Hx Cystic Fibrosis, Hx Lung Cancer, Hx Pleural Effusion, Hx Pneumonia, Hx Pulmonary Edema, Hx Pulmonary Embolism, Hx Seasonal Allergies Comment Only: Other Respiratory Problems/Disorders - SLEEPS SITTING UP/ DIFFICULTY SLEEPING GI History: Reports: Hx Diverticulosis, Other GI Disorders - "SLIGHTLY INFLAMED LIVER" Denies: Hx Cirrhosis, Hx Crohn's Disease, Hx Gall Bladder Disease, Hx Gastroesophageal Reflux Disease, Hx Gastrointestinal Bleed, Hx Hiatal Hernia, Hx Irritable Bowel, Hx Jaundice, Hx Obstructive Bowel, Hx Ileostomy, Hx Pyloric Stenosis, Hx Ulcer History: Reports: Hx Kidney Stones, Other Problems/Disorders - uretral stents Denies: Hx Acute Renal Failure, Hx Benign Prostatic Hyperplasia, Hx Chronic Renal Failure, Hx Dialysis, Hx Kidney Infection Musculoskeletal History: Denies: Other Musculoskeletal History Sensory History: Reports: Hx Contacts or Glasses Denies: Hx Cataracts, Hx Eye Injury, Hx Eye Prosthesis, Hx Glaucoma, Hx Legally Blind, Hx Macular Degeneration, Hx Vision Problem, Hx Deafness, Hx Hearing Aid, Hx Hearing Problem, Other Sensory Impairments Opthamlomology History: Reports: Hx Contacts or Glasses Denies: Hx Cataracts, Hx Eye Injury, Hx Eye Prosthesis, Hx Glaucoma, Hx Legally Blind, Hx Macular Degeneration, Hx Vision Problem, Other Sensory Impairments Neurological History: Reports: Hx Headaches - from NTG, Hx Nerve Disease - neuropathy, C5 damaged, Hx Spinal Cord Injury - pt states trauma at coccyx many years ago, Hx Transient Ischemic Attacks (TIA) Denies: Hx Dementia, Hx Developmental Delay, Hx Migraine, Hx Seizures, Other Neuro Impairments/Disorders - possible TIA/CVA, neuropathies Psychiatric History: Reports: Hx Anxiety - ON MEDICATION FOR, Hx Depression - ON MEDICATION FOR, Hx Post Traumatic Stress Disorder Denies: Hx Panic Disorder - Cancer History Cancer Type, 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 2010 HEART CATHERIZATION, [facility] [place]. 12/25/2014 CYSTOSCOPY BILATERAL RETROGRADE, BILATERAL STENT INSERTION, URETEROSCOPY, TUR BLADDER LESION, [facility] [place]. 01/11/2015 ESWL, CYSTOSCOPY, RIGHT STENT REMOVAL, [facility] Anesthesia Reactions: No - Immunization History Date of Tetanus Vaccine: Unsure Date of Influenza Vaccine: 2011 Infectious Disease History: No Infectious Disease History: Denies: Hx Clostridium Difficile, Hx Hepatitis, Hx Human Immunodeficiency Virus (HIV), Hx of Known/Suspected MRSA, Hx Shingles, Hx Tuberculosis, Hx Known/ Suspected VRE, Hx Known/Suspected VRSA, History Other Infectious Disease, Traveled Outside the [place] in Last 30 Days - Family History Known Family History: Positive: Other - GB disease Negative: Cardiac Disease - Social History Alcohol Use: None Hx Substance Use: No Substance Use Type: Reports: None Hx Tobacco Use: No Smoking Status (MU): Never Smoked Tobacco Have You Smoked in the Last Year: No Review of Systems Negative: Fever Negative: Chest Pain Negative: Shortness Of Breath Negative: Abdominal Pain Negative: Edema All Other Systems Reviewed And Are Negative: Yes Physical Exam Triage Information Reviewed: Yes Vital Signs On Initial Exam: Initial Vitals Temp Pulse Resp BP Pulse Ox 97.3 F 95 20 139/95 99 05/12/17 14:06 03/23/17 14:06 03/23/17 14:06 03/23/17 14:06 03/23/17 14:06 Vital Signs Reviewed: Yes Appearance: Positive: Well-Appearing Skin: Positive: Warm, Dry Head/Face: Positive: Normal Head/Face Inspection Eyes: Positive: Normal, Conjunctiva Clear Respiratory/Lung Sounds: Positive: Clear to Auscultation, Breath Sounds Present Cardiovascular: Positive: Normal, RRR Abdomen Description: Positive: Nontender, Soft Bowel Sounds: Positive: Present Musculoskeletal: Negative: Edema Left - leg, Edema Right - leg Diagnostics - Vital Signs Vital Signs Temp Pulse Resp BP Pulse Ox 03/23/17 15:36 97.4 F 98 18 104/74 98 03/23/17 14:06 97.3 F 95 20 139/95 99 - Laboratory Lab Results: Lab Results 03/23/17 03/23/17 03/23/17 Range/Units 15:52 15:52 15:52 WBC 9.9 (3.5-10.8) 10^3/ul RBC 4.85 (4.0-5.4) 10^6/ul Hgb 14.8 (14.0-18.0) g/dl Hct 45 (42-52) % MCV 92 (80-94) fL MCH 30 (27-31) pg MCHC 33 (31-36) g/dl RDW 14 (10.5-15) % Plt Count 203 (150-450) 10^3/ul MPV 10 (7.4-10.4) um3 Neut % (Auto) 70.6 (38-83) % Lymph % (Auto) 21.3 L (25-47) % [place] % (Auto) 5.9 (1-9) % Eos % (Auto) 1.7 (0-6) % Baso % (Auto) 0.5 (0-2) % Absolute Neuts (auto) 7.0 (1.5-7.7) 10^3/ul Absolute Lymphs (auto) 2.1 (1.0-4.8) 10^3/ul Absolute Monos (auto) 0.6 (0-0.8) 10^3/ul Absolute Eos (auto) 0.2 (0-0.6) 10^3/ul Absolute Basos (auto) 0.1 (0-0.2) 10^3/ul Absolute Nucleated RBC 0.01 10^3/ul Nucleated RBC % 0.1 Sodium 135 (133-145) mmol/L Potassium 4.5 (3.5-5.0) mmol/L Chloride 109 (101-111) mmol/L Carbon Dioxide 18 L (22-32) mmol/L Anion Gap 8 (2-11) mmol/L BUN 21 (6-24) mg/dL Creatinine 1.25 H (0.67-1.17) mg/dL Est GFR ( Amer) 76.6 (>60) Est GFR (Non-Af Amer) 59.5 (>60) BUN/Creatinine Ratio 16.8 (8-20) Glucose 128 H (70-100) mg/dL Calcium 9.5 (8.6-10.3) mg/dL Total Bilirubin 0.30 (0.2-1.0) mg/dL AST 13 (13-39) U/L ALT 11 (7-52) U/L Alkaline Phosphatase 74 (34-104) U/L B-Natriuretic Peptide 31 ( - 100) pg/mL Total Protein 6.8 (6.4-8.9) g/dL Albumin 3.9 (3.2-5.2) g/dL Globulin 2.9 (2-4) g/dL Albumin/Globulin Ratio 1.3 (1-3) Result Diagrams: 03/23/17 15:52 03/23/17 15:52 Lab Statement: Any lab studies that have been ordered have been reviewed, and results considered in the medical decision making process. Diabetic Course/Dx - Course Course Of Treatment: 57M presents [facility] lab draw for weight gain in the past week. He states that has gained 7 pounds in the past week. he denies any SOB or swelling his legs. His BNP 31 and Cr 1.25. spoke with dr cleary and informed of results. patient understands and agrees with plan - Diagnoses Differential Dx: Other - CHF, CKD, normal exam Provider Diagnoses: Weight gain Discharge - Discharge Plan Condition: Good Disposition: HOME Referrals: Clifford Cleary MD [Primary Care Provider] - Additional Instructions: Follow up with primary within 7 days Return to ED if develop any chest pain, shortness of breath, or any new or worsening symptoms
== END 2017-03-23 17:26 | disposition home or self-care (01) ==
LOC: ED 14:00
DX: R63.5 Abnormal weight gain (principal); I50.9 Heart failure, unspecified; F41.9 Anxiety disorder, unspecified; F32.9 Major depressive disorder, single episode, unspecified; E11.8 Type 2 diabetes mellitus with unspecified complications; Z79.84 Long term (current) use of oral hypoglycemic drugs
CPT/HCPCS: 36415; 80053; 83880; 85025; 99282

== ENCOUNTER 2017-07-08 09:53 | Inpatient (IN) | payer OTHER ==
[2017-07-08] MEDS ORDERED: Aspirin Low Dose CHEW TAB* 81 MG PO ONE (10:35)
[2017-07-08 10:44] LABS: Hematocrit 43 % (42-52); Hemoglobin 13.8 g/dl (14.0-18.0); Mean Corpuscular HGB Conc 32 g/dl (31-36); Mean Corpuscular Hemoglobin 31 pg (27-31); Mean Corpuscular Volume 96 fL (80-94); Mean Platelet Volume 10 um3 (7.4-10.4); Red Blood Count 4.44 10^6/ul (4.0-5.4); Red Cell Distribution Width 14 % (10.5-15); White Blood Count 8.9 10^3/ul (3.5-10.8)
[2017-07-08 11:03] LABS: Albumin 3.6 g/dL (3.2-5.2); BUN/Creatinine Ratio 15.3 (8-20); Calcium 9.2 mg/dL (8.6-10.3); EGFR African American 87.8 (>60); EGFR Non-African American 68.3 (>60); Globulin 3.1 g/dL (2-4); Potassium 5.1 mmol/L (3.5-5.0); Total Bilirubin 0.4 mg/dL (0.2-1.0); Total Protein 6.7 g/dL (6.4-8.9)
--- NOTE | 2017-07-08 11:08 | RAD ---
HISTORY: Chest pain COMPARISONS: December 11, 2016 VIEWS:1: Single frontal portable view of the chest at 10:35 AM FINDINGS: LINES AND TUBES: None. CARDIOMEDIASTINAL SILHOUETTE: The cardiomediastinal silhouette is stable accounting for technique and the phase of respiration. PLEURA: The costophrenic angles are sharp. No pleural abnormalities are noted. LUNG PARENCHYMA: The lung volumes are low. The lungs are clear accounting for the phase of respiration. ABDOMEN: The upper abdomen is clear. There is no subphrenic gas. BONES AND SOFT TISSUES: No bone or soft tissue abnormalities are noted. IMPRESSION: LOW LUNG VOLUMES. NO ACTIVE CARDIOPULMONARY DISEASE.
[2017-07-08] MEDS ORDERED: Iodixanol* (CONTRAST) 320 MG/ML 100 ML SDV IV ONE (11:19)
[2017-07-08 11:25] LABS: Troponin I 2.48 ng/mL (<0.04)
[2017-07-08] MEDS ORDERED: Heparin DRIP 25,000 UNITS(*) 25,000 UNITS/500 ML BAG IVPB SCH (11:30)
[2017-07-08] MEDS ORDERED: Nitroglycerin TAB 0.4 MG* 0.4 MG TAB ONE (11:31)
[2017-07-08] MEDS: Nitroglycerin TAB 0.4 MG* 0.4 MG TAB SL ONE ×2 (11:32→11:40)
[2017-07-08] MEDS ORDERED: Nitroglycerin 2% OINT* 1 GM PAK TOPICAL ONE (11:39)
[2017-07-08] MEDS ORDERED: Heparin VIAL(*) 5000 UNITS/ML VIAL (FIVE THOUSAND) IV SCH ×2 (12:00→17:00)
[2017-07-08] MEDS ORDERED: Heparin VIAL(*) 5000 UNITS/ML VIAL (FIVE THOUSAND) ONE (12:31)
[2017-07-08] MEDS ORDERED: Heparin DRIP 25,000 UNITS(*) 25,000 UNITS/500 ML BAG ONE (12:31)
--- NOTE | 2017-07-08 13:30 | RAD ---
HISTORY: Chest pain, shortness of breath, history of aortic ectasia COMPARISONS: November 28, 2016 TECHNIQUE: Multiple contiguous axial CT scans of the chest were obtained after the administration of nonionic intravenous contrast, timed to the pulmonary arterial phase of contrast enhancement.. Coronal and sagittal multiplanar reformations are also submitted for review. FINDINGS: NECK AND THYROID: The lower neck and thyroid are unremarkable. CHEST WALL: There is no lower cervical, axillary, or supraclavicular lymphadenopathy by size criteria. HEART AND PERICARDIUM: There is mild cardiomegaly AORTA AND PULMONARY VASCULATURE: There is no pulmonary arterial filling defect to suggest pulmonary embolism. There is no linear filling defect within the aorta to suggest aortic dissection. The aorta structures. There is no aneurysmal dilatation.. MEDIASTINUM: There is no mediastinal lymphadenopathy by size criteria. WALESKA: There is no hilar lymphadenopathy by size criteria. AIRWAY AND ESOPHAGUS: The airway is unremarkable, without endobronchial filling defect. The esophagus is grossly normal. LUNG PARENCHYMA: The lungs are clear. PLEURA: No pleural abnormalities are noted. UPPER ABDOMEN: The upper abdomen is unremarkable. BONES AND SOFT TISSUES: Degenerative changes are noted. There is a mild scoliotic curvature of the spine OTHER: None. IMPRESSION: 1. NO PULMONARY ARTERIAL FILLING DEFECT TO SUGGEST PULMONARY EMBOLISM. 2. NO THORACIC AORTIC DISSECTION
[2017-07-08] MEDS ORDERED: Ondansetron INJ* 2 MG/ML VIAL IV ONE (14:11)
[2017-07-08 14:49] LABS: Troponin I 1.81 ng/mL (<0.04)
[2017-07-08] MEDS ORDERED: traZODone TAB* 50 MG TAB PO PRN (15:40)
[2017-07-08] MEDS ORDERED: Dextrose 50% Syringe 50 ML* 25 GM/50 ML SYRINGE IV PUSH PRN (15:42)
[2017-07-08] MEDS ORDERED: Carvedilol TAB* 6.25 MG PO ONE (15:43)
[2017-07-08] MEDS ORDERED: Acetaminophen TAB* 325 MG PO PRN (15:44)
[2017-07-08] MEDS ORDERED: Temazepam CAP* 15 MG PO PRN (15:44)
[2017-07-08] MEDS ORDERED: Morphine INJ* 2 MG/ML 1 ML SYRINGE IV PRN (15:44)
[2017-07-08] MEDS ORDERED: NS 0.9% 1000 ML* 1,000 ML IV SCH (15:45)
[2017-07-08] MEDS ORDERED: Clopidogrel TAB* 300 MG PO ONE (15:59)
[2017-07-08] MEDS ORDERED: Heparin DRIP 25,000 UNITS(*) 25,000 UNITS/500 ML BAG IV SCH (16:15)
[2017-07-08] MEDS ORDERED: Senna TAB PO PRN (16:26)
[2017-07-08] MEDS ORDERED: Insulin LISPRO* 1 UNITS UNIT SUBCUT SCH (16:30)
[2017-07-08 16:34] LABS: Hematocrit 40 % (42-52); Hemoglobin 13.1 g/dl (14.0-18.0); Mean Corpuscular HGB Conc 33 g/dl (31-36); Mean Corpuscular Hemoglobin 31 pg (27-31); Mean Corpuscular Volume 95 fL (80-94); Mean Platelet Volume 9 um3 (7.4-10.4); Red Blood Count 4.24 10^6/ul (4.0-5.4); Red Cell Distribution Width 13 % (10.5-15); White Blood Count 9.8 10^3/ul (3.5-10.8)
--- NOTE | 2017-07-08 16:42 | CONSULT ---
Subjective Date of Service: 07/08/17 Interval History: Date of admission and consult: 07/08/2017: Service: Hospitalist PMD: Dr. Clifford Aranda Garage Worker: Dr. Manuel Moser CC: chest pain Reason for consult: NSTEMI HPI Mr. Cardoso is a 57 year old man with with a history as below including but not limited to morbid obesity, CVA, diabetes and likely [place]'s coronary heart disease with a medically managed NE in 2010. He was unable to get plavix from his pharmacy for a week. He restart at 75 mg this past Sunday without a loading dose. Sunday night had trouble with CPAP and used oxygen. Sunday he felt body aches but had been doing exercises recently and attributed it to this. This AM he awoke with chest pain like pushing inward into the center of his chest. He also felt labored breathing like his heart failure symptoms. He also felt a generalized uneasiness in his chest. The chest pain was relieved with typical nitrates and has not returned. His chest uneasiness is nearly resolved. He ruled in for ACS/NSTEMI with symptomatic and troponin. He is due for a screening colonoscopy soon in which plavix would need held for follow up tubular adenoma) Allergies: Gabapentin 12/08/13 Novocain 12/08/13 allergy list reviewed on 02/05/2017 Problem List: Heart failure, unspecified Extreme obesity with alveolar hypoventilation Obstructive sleep apnea syndrome Essential hypertension Athscl heart disease of [place] cor art w unsp ang pctrs Coronary arteriosclerosis PMH: Medical Problems: Sleep Apnea Diabetes Type II Post Traumatic Stress Disorder Diverticulitis Hypothyroidism Stroke - 2013 (was only on plavix at the time and not aspirin) Bladder Cancer Surgical Hx: kidney stenting 2015 Lithotripsy - rt and left kidney FH: Mother: due to Breast Cancer. SH: Marital: .Occupation: Unemployed. Personal Habits: Smoking: Patient has never smoked.Alcohol: Denies alcohol use.Drug Use: Denies Drug Use.Daily Caffeine: Coffee - 1-2 times a month. Medications Active Medications: Acetaminophen (Tylenol Tab*) 650 mg PO Q4H PRN PRN Reason: FEVER/PAIN Aspirin (Aspirin Ec Low Dose*) 81 mg PO DAILY KRISTEN Atorvastatin Calcium (Lipitor*) 80 mg PO DAILY KRISTEN Bupropion HCl (Wellbutrin Xl *) 450 mg PO DAILY KRISTEN Carvedilol (Coreg Tab*) 6.25 mg PO BID [facility] Clopidogrel Bisulfate (Plavix Tab*) 75 mg PO DAILY [facility] Dextrose (D50w Syringe 50 Ml*) 12.5 gm IV PUSH .FOR FS < 60 - SS PRN PRN Reason: FS < 60 Heparin Sodium (Porcine) (Heparin Vial(*)) 0 units IV .PER PROTOCOL KRISTEN PRN Reason: Protocol Sodium Chloride (Ns 0.9% 1000 Ml*) 1,000 mls @ 75 mls/hr IV PER RATE KRISTEN Heparin Sodium/Dextrose (Heparin Drip 25,000 Units(*)) 25,000 units in 500 mls @ 0 mls/hr IV .NO INITIAL BOLUS KRISTEN; As Directed PRN Reason: Protocol Insulin Human Lispro (Humalog*) 0 units SUBCUT AC KRISTEN PRN Reason: Protocol Levothyroxine Sodium (Synthroid Tab*) 100 mcg PO 0600 [facility] Morphine Sulfate (Morphine Inj (Syringe)*) 2 mg IV Q4H PRN PRN Reason: PAIN Nitroglycerin (Nitroglycerin 2% Oint*) 1 inch TOPICAL Q6H KRISTEN PRN Reason: Protocol Senna (Senokot Tab*) 2 tab PO BEDTIME PRN PRN Reason: CONSTIPATION Temazepam (Restoril Cap*) 15 mg PO BEDTIME PRN PRN Reason: INSOMNIA Topiramate (Topamax(*)) 200 mg PO DAILY [facility] Trazodone HCl (Desyrel Tab*) 50 mg PO BEDTIME PRN PRN Reason: SLEEP Home Medications: Clopidogrel TAB* [Plavix TAB*] 75 mg PO DAILY 08/10/13 [History Confirmed ] metFORMIN* [Glucophage 1000 MG TAB *] 1,000 mg PO BID WITH MEALS 12/18/14 [ History Confirmed 07/08/17] Aspirin EC Low Dose* [Ecotrin EC Low Dose 81 MG*] 81 mg PO DAILY 11/28/16 [ History Confirmed 07/08/17] Atorvastatin* [Lipitor 80 MG*] 80 mg PO DAILY 11/28/16 [History Confirmed ] BuPROPion XL* [Bupropion XL*] 450 mg PO DAILY 11/28/16 [History Confirmed ] Levothyroxine TAB* [Synthroid 100 MCG TAB*] 100 mcg PO DAILY 11/28/16 [History Confirmed 07/08/17] traZODone TAB* [Desyrel TAB*] 50 - 100 mg PO BEDTIME PRN 11/28/16 [History Confirmed 07/08/17] Carvedilol TAB* [Coreg TAB*] 6.25 mg PO BID #60 tab 11/30/16 [Rx Confirmed 07/08] Bydureon 2 mg INJ MONTHLY 07/08/17 [History Confirmed 07/08/17] Fiber-Lax 1,200 mg PO DAILY PRN 07/08/17 [History Confirmed 07/08/17] Furosemide TAB* [Lasix TAB*] 20 mg PO EVERY OTHER DAY 07/08/17 [History Confirmed 07/08/17] Losartan TAB* [Cozaar TAB*] 25 mg PO DAILY 07/08/17 [History Confirmed 07/08/17] Spironolactone TAB* [Aldactone TAB 25 MG*] 25 mg PO EVERY OTHER DAY 07/08/17 [ History Confirmed 07/08/17] Topiramate 200 mg PO DAILY 07/08/17 [History Confirmed 07/08/17] Vitamin D CAP* 5,000 unit PO EVERY OTHER DAY 07/08/17 [History Confirmed ] Review of Systems - Review of Systems Constitutional Symptoms: Negative: Fatigue, Fever, Unexplained Falls Dermatology: Negative: Rash, Skin Lesions, Skin Lumps HEENT: Negative: Change in Hearing, Vertigo Eyes: Negative: Change in Vision, Double Vision Thyroid: Negative: Goiter, Cold Intolerance, Heat Intolerance, Primary Hypothyroidism , Primary Hyperthyroidism Pulmonary: Positive: Shortness of Breath, Exercise Intolerance Negative: Sputum, Hemoptysis, Wheezing, Respiratory Distress Cardiology: Positive: Chest Pain, Shortness of Breath Negative: Normal, Palpitations, Peripheral Vascular Dis, Edema, Faintness, Syncope, Paroxysmal Nocturnal Dyspnea Gastroenterology: Negative: Abdominal Pain, Nausea, Vomiting, Anorexia, Heartburn, Constipation , Haematemesis, Melena Genital - Urinary: Negative: Dysuria, Hematuria, Polyuria Musculoskeletal: Negative: Joint Pain, Joint Stiffness Endocrinology: Positive: Obesity, Diabetes Negative: Adrenal Problems, Gonadal Problems, Diabetic Foot Ulcers, Calluses , Polydipsia, Polyuria Hematologic/Lymphatic: Positive: Use of Antiplatelet Drugs Negative: Hx Leukemia, Hx Lymphoma, Use of Anticoagulant Neurology: Positive: Hx of Stroke\TIA Negative: Headaches, Migraines, Change in Vision, Diplopia, Dizziness, Change in Balancing, Change in Coordination, Change in Memory, Change in Speech , Hx Seizures Psychiatry: Positive: Adhedonia Negative: Tearfulness, Unusual Anxiety Allergic/Immunologic: Negative: Athsma, Hx HIV, Immunocompromise Review of Systems Statement: All other review of systems negative, unless stated above. Objective Vital Signs: Temp Pulse Resp BP Pulse Ox 96.5 F 51 14 127/87 98 07/08/17 10:08 07/08/17 15:40 07/08/17 15:40 07/08/17 15:40 07/08/17 15:40 Appearance: nad, pleasant Ears/Nose/Mouth/Throat: Clear Oropharnyx Neck: Trachea Midline, - - uncertain jvp Respiratory: Symmetrical Chest Expansion and Respiratory Effort, Clear to Auscultation Cardiovascular: RRR, - - distant no significant murmur Abdominal: NL Sounds; No Tenderness; No Distention, - - obese Extremities: No Clubbing, Cyanosis Skin: - - diffuse skin lesions, appear from manual traumua Neurological: Alert and Oriented x 3, NL Muscle Strength and Tone Laboratory Results: 07/08/17 16:26 07/08/17 16:26 INR (Anticoag Therapy) 0.94 (0.89-1.11) 07/08/17 16:26 APTT 116.8 seconds (26.0-36.3) H* 07/08/17 16:26 Total Bilirubin 0.40 mg/dL (0.2-1.0) 07/08/17 10:34 AST 25 U/L (13-39) 07/08/17 10:34 ALT 22 U/L (7-52) 07/08/17 10:34 Alkaline Phosphatase 92 U/L (34-104) 07/08/17 10:34 B-Natriuretic Peptide 191 pg/mL (-100) H 07/08/17 16:26 Total Protein 6.7 g/dL (6.4-8.9) 07/08/17 10:34 Albumin 3.6 g/dL (3.2-5.2) 07/08/17 10:34 Globulin 3.1 g/dL (2-4) 07/08/17 10:34 Albumin/Globulin Ratio 1.2 (1-3) 07/08/17 10:34 07/08/17 07/08/17 07/08/17 10:34 13:50 16:26 Troponin I 2.48 H* 1.81 H* 2.27 H* Diagnostic Imaging: Echocardiogram - (01/30/2017) Moderate LVH, LVEF 40-45%, mild-mod MR Stress Test - (09/17/2015) Moderate sized inferior-lateral wall infarction pattern with only minimal inferior wall panchito-infarct ischemia (similar to 2011) Cardiac Catheterization - (11/19/2010): Diffuse ectasia/aneurysm (measurements not given) of all coronary arteries) with hazy appearance of all vessels and slow flow in RCA and Lcx. ? dissection/significant stenosis in the distal Lcx and ? stenosis mid RCA. No evidence of aortic aneurysm or ectasia. CTA chest 07/08/2017: No PE, no aneurysmal dilation of the aorta, no dissection. EKG 07/08/2017: NSR 87 bpm, borderline criteria old inferior NE (likely posterior extension with prominent R in V2), T wave flattening V5-V6 with TWI 1/ aVL, PVC's (grossly unchanged from 11/2016) MRI brain 07/2015: Punctate foci of restriction R frontal and L parietal consistent with subacute non-hemorrhagic infarct (suggestive of embolic phenomenon), prior left cerebellar infarct Assessment/Plan Mr. Cardoso is a 57 year old man with with a history of CVA, morbid obesity , diabetes, heart failure LVEF 40-45%, sleep disordered breathing/severe sleep apnea, and likely post-[place]'s coronary artery disease with a medically managed NE in 2010 presents with NSTEMI in setting of recent holding of plavix and resuming 2 days ago without a loading dose. Chest pain now resolved with nitrates and IV heparin. - Continue aspirin 81 mg PO daily - Given plavix 600 mg PO x 1 loading dose plavix now then 75 mg po daily - Continue topical nitrates and PRN SL NTG for pain. - Continue beta-wayne - Continue IV heparin - Cardiac catheterization with intent for revascularization indicated and recommended. Risks, benefits and alternatives discussed and he would like to proceed. Discussed with Dr. Arroyo and will arrange for tomorrow. Will check an echo, LV gram per Dr. Arroyo discretion s/p IV contrast for CT but at the least may benefit from an LVEDP measurement, BNP may be falsely low from obesity , will give gentle hydration post-contrast for now. 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 He may also benefit from changing plavix to warfarin pending results of angiogram. Even if there is no PCI, I do not think he should hold either aspirin or plavix for a colonoscopy. I do not think an IV cangrelor bridge is practical. I am not aware of any DOAC data in this situation. Thank you for allowing me to participate in the cardiovascular care of this patient. Please do not hesitate to contact me with questions or concerns.
[2017-07-08] MEDS ORDERED: Nitroglycerin TAB 0.4 MG* 0.4 MG TAB SL PRN (17:08)
[2017-07-08 17:21] LABS: Troponin I 2.27 ng/mL (<0.04)
[2017-07-08] MEDS: Carvedilol TAB* 6.25 MG PO SCH (20:11)
[2017-07-08] MEDS: Nitroglycerin 2% OINT* 1 GM PAK TOPICAL SCH (20:26)
[2017-07-08] MEDS: Insulin LISPRO* 1 UNITS UNIT SUBCUT SCH (20:30)
[2017-07-09] MEDS: Nitroglycerin 2% OINT* 1 GM PAK TOPICAL SCH ×3 (00:23→11:07)
[2017-07-09 01:17] LABS: Troponin I 32.86 ng/mL (<0.04)
--- NOTE | 2017-07-09 01:44 | PN ---
Cardiology Progress Note 07/09/2017 do not bill for this encounter. Notified by phone of rise in troponin to [address] Fofana. Patient reportedly with no CP, dyspnea or nausea EKG done more prominent inferior q waves, no diagnostic ST elevation Patient will be transferred to ICU for closer monitoring Continue current medical therapy Plan for coronary angiogram later today.
[2017-07-09 02:10] LABS: Magnesium 1.8 mg/dL (1.9-2.7)
[2017-07-09] MEDS ORDERED: Magnesium Sulfate 3 GM IV IVPB ONE ×2 (03:00)
--- NOTE | 2017-07-09 03:22 | HP ---
CC: Dr. Clifford Aranda; Dr. Moser; Dr. Arroyo; Adelso Hayes DO * HISTORY AND PHYSICAL: DATE OF ADMISSION: 07/08/17 PRIMARY CARE PROVIDER: Clifford Aranda MD CHIEF COMPLAINT: Chest pain and shortness of breath. HISTORY OF PRESENT ILLNESS: Mr. Cardoso is a 57-year-old morbidly obese male with history of obstructive sleep apnea, diabetes, hypertension, hyperlipidemia, coronary artery disease, who presented to the hospital complaining of chest pain that had been ongoing for 4 days. The patient is a rather poor and nonspecific historian. He stated that chest pain had been going for several days and had been . He stated that it feels like a squeezing pressure in the center of his chest. There were no alleviating or aggravating factors, but he did not try to use any medications for that. The chest pain was not pleuritic and was relieved by nitroglycerin in the emergency room. The patient stated that at night he had problems with breathing and he could not tolerate his CPAP recently, had been using only oxygen at night. His troponin on presentation was about 2. He is going to be admitted with diagnosis of non-ST elevation WI. PAST MEDICAL HISTORY: 1. History of TIA in 2013, the patient stated that he still has left-sided residual weakness from that. 2. History of essential hypertension. 3. History of diabetes type 2 with ophthalmic manifestations. 4. History of coronary artery disease. The patient has had cardiac catheterization in 2010, which showed significant ectasia and aneurysmal dilatation of all coronary arteries with hazy appearance in all vessels, particularly noted in the right coronary artery and the circumflex with slow flow in both of those vessels. There was questionable dissection and significant stenosis in the distal circumflex, as well as questionable stenosis involving the mid right coronary. The exact percent of stenosis is hard to assess given severe ectasia of the vessels. At that point the patient was treated medically. 5. History of obstructive sleep apnea, on CPAP and oxygen at night. 6. History of diverticulosis, chronic. 7. History of hypertension. 8. History of hyperlipidemia. 9. History of nephrolithiasis, status post stenting of the ureter in 2014. 10. History of PTSD. 11. Morbid obesity with BMI of 50. 12. Hypothyroidism. 13. History of CHF. The patient's last echocardiogram was noted to be in March of 2017, which showed EF of 40-45%, [id number] mitral regurgitation. The patient's last stress test was obtained in 2014, which was abnormal and showed moderately sized inferolateral wall pattern and minimal inferior wall panchito-infarct ischemia. PAST SURGICAL HISTORY: 1. History of 6 surgeries on his cervical spine. 2. History of bilateral shoulder surgeries. MEDICATIONS: Outpatient medications include: . Vitamin D3 5000 units every other day. 2. Topamax 200 mg daily. 3. Fibro-Lax daily p.r.n. 4. Bydureon 2 mg injections monthly. 5. Coreg 6.25 mg b.i.d. 6. Bupropion XL 450 mg daily. 7. Lipitor 80 mg daily. 8. Aspirin 81 mg daily. 9. Losartan 25 mg daily. 10. Levothyroxine 100 mcg daily. 11. Furosemide 20 mg every other day. 12. Plavix 75 mg daily. Please note that the patient had not refilled his prescription and he was off Plavix for 7 days. 13. Trazodone 50 mg to 100 mg at bedtime for sleep. 14. Metformin 1000 mg b.i.d. 15. Aldactone 25 mg every other day. ALLERGIES: Include GABAPENTIN and PROCAINE. FAMILY HISTORY: Positive for mother with history of breast cancer. SOCIAL HISTORY: The patient is unemployed. Denies any tobacco, alcohol, or drug use. He is and his surrogate he names his social work specialist, and her phone number is [phone]. REVIEW OF SYSTEMS: Please see history of present illness. The patient stated he had problems with 2013. He has problems with left-sided weakness and he uses walking stick for walking. He uses oxygen and CPAP at night only. He had been in his usual state of health until approximately 3 days ago when chest pain was started. He denies any recent cough, or fevers. He stated that he had 4 loose bowel movements within the past 24 hours, but denies any abdominal pain. He denies any nausea. His appetite has been good. His weight had been stable. All the remaining 14 systems were reviewed with the patient and were otherwise negative. PHYSICAL EXAMINATION GENERAL: The patient is a pleasant 57-year-old male with a BMI of 52. The patient is in no acute distress. Alert, awake, and oriented x3. VITAL SIGNS: Blood pressure of 127/87, heart rate of 93 and regular, respiratory rate 14, oxygen saturation 98% on 2 liters of oxygen nasal cannula, temperature of 96.5. HEENT: Head: Atraumatic, normocephalic. Eyes: Pupils equal and reactive to light and accommodation. Oropharynx clear. Mucosa moist. NECK: Supple. No JVD. No bruits bilaterally. RESPIRATORY: Clear to auscultation bilaterally. CARDIOVASCULAR: Regular rate and rhythm. No murmur. ABDOMEN: Soft, nontender. Bowel sounds present in all 4 quadrants. EXTREMITIES: There is trace bilateral pedal edema. Pulses are +2 bilaterally. No clubbing or cyanosis. NEUROLOGIC: Speech clear. Cranial nerves II through XII are grossly intact. Motor strength is 5/5 bilaterally. PSYCHIATRIC EVALUATION: Pleasant and cooperative with evaluation with no evidence of anxiety or depression. SKIN: On evaluation of the skin, the patient has multiple small 1 cm or so or below noted excoriations and scars especially on his forehead, but on the forearms and on upper chest. The patient stated that he usually "picks that pruritic skin." DIAGNOSTIC STUDIES/LAB DATA]: Show white blood cell count of 8.9, hemoglobin of 13.8, hematocrit of 33, and platelets of 205. Sodium was 135, potassium 5.1, chloride 107, carbon dioxide 25, BUN 17, creatinine 1.11. Liver function tests were unremarkable. Troponin initially was 2.48, second troponin 1.81. CT angiogram of the chest obtained on 07/08/17, impression: "No pulmonary artery filling defects to suggest pulmonary embolism. No thoracic aortic dissection." The patient's EKG showed normal sinus rhythm with heart rate of 87 beats per minute with PVC and ST depressions in leads V4, V6. Comparing with prior EKG from November of 2016, the changes appear chronic. ASSESSMENT AND PLAN: A 57-year-old male who has not taken his Plavix for the past 7 days presents with chest pain and elevated troponin. The patient is going to be admitted with the diagnosis of non-ST elevation WI. Initially, the plan was to admit to the intensive care unit, but after discussion with the healthcare network consultant it was decided the patient is a good candidate for cardiac monitor bed. The patient is currently is chest pain free. He is going to receive a loading dose of Plavix since he had been out of Plavix for the past 7 days. He is also going to be continued on heparin that was started in the emergency room. 1. Dr. Arroyo was notified about the patient's presentation and likely he will perform cardiac catheterization in the morning. 2. In regards to the patient's history of congestive heart failure. Currently , he appears euvolemic. I will place the patient on gentle intravenous hydration in preparation for cardiac catheterization in the morning. 3. Mild hyperkalemia. Likely it will resolve after mild general intravenous fluids hydration. The patient's Aldactone and losartan are going to be held for the time being. 4. In regards to the patient's hypothyroidism, his levothyroxine is going to be continued. 5. To evaluate dyslipidemia, fasting lipid profile is going to be obtained. 6. Obstructive sleep apnea. CPAP is going to be ordered. 7. For diabetes management. Oral hypoglycemics are going to be held. The patient is going to be placed on insulin sliding scale and hemoglobin A1c is going to be obtained. 8. For DVT prophylaxis. The patient is already on heparin drip. 9. Code status is full. TIME SPENT: Approximately 72 minutes was spent on admission of this patient, more than half of the time was spent [id number] with the patient during the interview, physical exam. [id number]/[facility] #: [id number] [place]
--- NOTE | 2017-07-09 03:38 | PN ---
Progress Note - Progress Note Date of Service: 07/09/17 Note: Nursing called reporting troponin of 32. Upon arrival, MR Cardoso is lying in bed without objective distress. He states he has no chest discomfort, SOB, nausea, or sweating. Lungs are clear. CV RRR. ABD soft. Extremities W&D. ECG negative for STEMI. Telemetry shows 4 beat burst of monomorphic VT. K <4 magnesium 1.8 Assessment: plan NSTEMI : Transfer to ICU for closer monitoring. : Continue heparin GTT, carvedilol, & aspirin. : Genaro Hayes MD cardiology apprised & agreed. : 3mg IV magnesium x1
[2017-07-09 06:00] LABS: Hematocrit 39 % (42-52); Hemoglobin 12.9 g/dl (14.0-18.0); Mean Corpuscular HGB Conc 33 g/dl (31-36); Mean Corpuscular Hemoglobin 31 pg (27-31); Mean Corpuscular Volume 94 fL (80-94); Mean Platelet Volume 10 um3 (7.4-10.4); Red Blood Count 4.16 10^6/ul (4.0-5.4); Red Cell Distribution Width 13 % (10.5-15); White Blood Count 11.7 10^3/ul (3.5-10.8)
[2017-07-09] MEDS ORDERED: Levothyroxine TAB* 100 MCG TAB PO SCH (06:00)
[2017-07-09] MEDS ORDERED: Ondansetron INJ* 2 MG/ML VIAL IV PRN (06:00)
[2017-07-09] MEDS ORDERED: LORazepam INJ* 2 MG/ML 1 ML VIAL IV PRN (06:04)
--- NOTE | 2017-07-09 06:05 | PN ---
Progress Note - Progress Note Date of Service: 07/09/17 Note: Nursing reports nausea. QTc 529, will use low dose lorazapam.
[2017-07-09 06:11] LABS: Cholesterol 118 mg/dL; HDL Cholesterol 34.8 mg/dL; LDL Cholesterol 55 mg/dL; Triglycerides 140 mg/dL
[2017-07-09 07:10] LABS: Troponin I > 82.00 ng/mL (<0.04)
[2017-07-09] MEDS ORDERED: Perflutren Lipid Microsphere* 3 ML VIAL ONE (08:07)
--- NOTE | 2017-07-09 08:10 | PN ---
Subjective Date of Service: 07/09/17 Interval History: s/p acute ME troponin to > 82 no chest discomfort since in ER no dyspnea while on oxygen tele: SR, no arrhythmias Medications Active Medications: Acetaminophen (Tylenol Tab*) 650 mg PO Q4H PRN PRN Reason: FEVER/PAIN Last Admin: 07/09/17 00:27 Dose: 650 mg Aspirin (Aspirin Ec Low Dose*) [address] [facility] Atorvastatin Calcium (Lipitor*) [address] [facility] Bupropion HCl (Wellbutrin Xl *) [address] [facility] Carvedilol (Coreg Tab*) 6.[address] [facility] Last Admin: 07/08/17 20:11 Dose: 6.25 mg Clopidogrel Bisulfate (Plavix Tab*) [address] [facility] Dextrose (D50w Syringe 50 Ml*) 12.5 gm IV PUSH .FOR FS < 60 - SS PRN PRN Reason: FS < 60 Heparin Sodium (Porcine) (Heparin Vial(*)) 0 units IV .PER PROTOCOL KRISTEN PRN Reason: Protocol Sodium Chloride (Ns 0.9% 1000 Ml*) 1,000 mls @ 75 mls/hr IV PER RATE [facility] Last Admin: 07/08/17 20:11 Dose: 75 mls/hr Heparin Sodium/Dextrose (Heparin Drip 25,000 Units(*)) 25,000 units in 500 mls @ 0 mls/hr IV .NO INITIAL BOLUS [facility]; As Directed PRN Reason: Protocol Last Admin: 07/09/17 06:16 Dose: 31 mls/hr Insulin Human Lispro (Humalog*) 0 units SUBCUT ACHS KRISTEN PRN Reason: Protocol Last Admin: 07/08/17 20:30 Dose: Not Given Levothyroxine Sodium (Synthroid Tab*) 100 mcg PO 0600 K[facility] Last Admin: 07/09/17 06:19 Dose: 100 mcg Lorazepam (Ativan Inj*) 0.25 mg IV Q4H PRN PRN Reason: NAUSEA Last Admin: 07/09/17 06:37 Dose: 0.25 mg Nitroglycerin (Nitroglycerin 2% Oint*) 1 inch TOPICAL Q6H KRISTEN PRN Reason: Protocol Last Admin: 07/09/17 06:19 Dose: 1 inch Nitroglycerin (Nitroglycerin Tab 0.4 Mg*) 0.4 mg SL Q5M PRN PRN Reason: ANGINA Senna (Senokot Tab*) 2 tab PO BEDTIME PRN PRN Reason: CONSTIPATION Temazepam (Restoril Cap*) 15 mg PO BEDTIME PRN PRN Reason: INSOMNIA Topiramate (Topamax(*)) 200 mg PO DAILY [facility] Trazodone HCl (Desyrel Tab*) 50 mg PO BEDTIME PRN PRN Reason: SLEEP Objective Vital Signs: Temp Pulse Resp BP Pulse Ox 98.9 F 91 14 118/87 93 07/09/17 02:00 07/09/17 06:46 07/09/17 06:46 07/09/17 06:00 07/09/17 06:46 Appearance: nad, pleasant Ears/Nose/Mouth/Throat: Clear Oropharnyx Neck: Trachea Midline, - - uncertain jvp Respiratory: Symmetrical Chest Expansion and Respiratory Effort, Clear to Auscultation Cardiovascular: RRR, - - distant no significant murmur Abdominal: NL Sounds; No Tenderness; No Distention, - - obese Extremities: No Clubbing, Cyanosis Skin: - - diffuse skin lesions, appear from manual traumua Neurological: Alert and Oriented x 3, NL Muscle Strength and Tone Laboratory Results: 07/09/17 05:35 07/08/17 16:26 INR (Anticoag Therapy) 0.94 (0.89-1.11) 07/08/17 16:26 APTT 55.0 seconds (26.0-36.3) H 07/09/17 00:32 Total Bilirubin 0.40 mg/dL (0.2-1.0) 07/08/17 10:34 AST 25 U/L (13-39) 07/08/17 10:34 ALT 22 U/L (7-52) 07/08/17 10:34 Alkaline Phosphatase 92 U/L (34-104) 07/08/17 10:34 B-Natriuretic Peptide 191 pg/mL (-100) H 07/08/17 16:26 Total Protein 6.7 g/dL (6.4-8.9) 07/08/17 10:34 Albumin 3.6 g/dL (3.2-5.2) 07/08/17 10:34 Globulin 3.1 g/dL (2-4) 07/08/17 10:34 Albumin/Globulin Ratio 1.2 (1-3) 07/08/17 10:34 Triglycerides 140 mg/dL 07/09/17 05:35 Cholesterol 118 mg/dL 07/09/17 05:35 LDL Cholesterol 55 mg/dL 07/09/17 05:35 HDL Cholesterol 34.8 mg/dL 07/09/17 05:35 07/08/17 07/09/17 07/09/17 16:26 00:32 05:35 Troponin I 2.27 H* 32.86 H* > 82.00 H* Diagnostic Imaging: Echocardiogram - (01/30/2017) Moderate LVH, LVEF 40-45%, mild-mod MR Stress Test - (09/17/2015) Moderate sized inferior-lateral wall infarction pattern with only minimal inferior wall panchito-infarct ischemia (similar to 2011) Cardiac Catheterization - (11/19/2010): Diffuse ectasia/aneurysm (measurements not given) of all coronary arteries) with hazy appearance of all vessels and slow flow in RCA and Lcx. ? dissection/significant stenosis in the distal Lcx and ? stenosis mid RCA. No evidence of aortic aneurysm or ectasia. CTA chest 07/08/2017: No PE, no aneurysmal dilation of the aorta, no dissection. EKG 07/08/2017: NSR 87 bpm, borderline criteria old inferior ME (likely posterior extension with prominent R in V2), T wave flattening V5-V6 with TWI 1/ aVL, PVC's (grossly unchanged from 11/2016) ekg : NSR, more prominent inferior q waves, no st elevation EKG 07/09/2017: MRI brain 07/2015: Punctate foci of restriction R frontal and L parietal consistent with subacute non-hemorrhagic infarct (suggestive of embolic phenomenon), prior left cerebellar infarct Assessment/Plan Mr. Cardoso is a 57 year old man with with a history of CVA, morbid obesity , diabetes, heart failure LVEF 40-45%, sleep disordered breathing/severe sleep apnea, and likely post-[place]'s coronary artery disease with a medically managed ME in 2010 presents with NSTEMI in setting of recent holding of plavix and resuming 2 days ago without a loading dose. Chest pain now resolved with nitrates and IV heparin. - Continue aspirin 81 mg PO daily - Continuye plavix 75 mg po daily - Continue topical nitrates and PRN SL NTG for pain. - Continue beta-wayne - Continue IV heparin - Plan for cardiac catheterization today, d/w Dr. Arroyo Thank you for allowing me to participate in the cardiovascular care of this patient. Please do not hesitate to contact me with questions or concerns.
--- NOTE | 2017-07-09 08:24 | PN ---
Subjective - Subjective Reason for Note: Progress Note History: I am the primary care physician and chicken boner for Asha Cardoso. I have obtained the history of his presentation from the patient and from Dr. Vj Troy's admitting history and physical and also have reviewed Dr. Adelso Hayes's cardiology consultation. He is known to have coronary artery disease. He has been going to cardiac rehab and last he states he had a "vigorous" session. Unfortunately, his supply of clopidogrel ran out 1 week early and he had been going back and forth with the pharmacy. He received his supply on Sunday (today Sunday). However, he developed chest pressure, shortness of breath on Sunday - he though this was CHF. He came to the hospital yesterday. He developed central chest pressure/pain, diaphoresis, nausea and vomiting. He has had a positive troponin I series. This morning he had mild nausea, but no longer has chest pain or dyspnea. Active Problems: Active Problems Myocardial infarction acute (Acute) I21.3 Microalbuminuria (Chronic) R80.9 Obstructive sleep apnea treated with bilevel positive airway pressure (BiPAP) ( Chronic) G47.33 Current Medications: Current Medications Acetaminophen (Tylenol Tab*) 650 mg PO Q4H PRN PRN Reason: FEVER/PAIN Last Admin: 07/09/17 00:27 Dose: 650 mg Aspirin (Aspirin Ec Low Dose*) 81 mg PO DAILY [facility] Atorvastatin Calcium (Lipitor*) 80 mg PO DAILY [facility] Bupropion HCl (Wellbutrin Xl *) 450 mg PO DAILY [facility] Carvedilol (Coreg Tab*) 6.25 mg PO BID [facility] Last Admin: 07/08/17 20:11 Dose: 6.25 mg Clopidogrel Bisulfate (Plavix Tab*) 75 mg PO DAILY [facility] Dextrose (D50w Syringe 50 Ml*) 12.5 gm IV PUSH .FOR FS < 60 - SS PRN PRN Reason: FS < 60 Heparin Sodium (Porcine) (Heparin Vial(*)) 0 units IV .PER PROTOCOL KRISTEN PRN Reason: Protocol Sodium Chloride (Ns 0.9% 1000 Ml*) 1,000 mls @ 75 mls/hr IV PER RATE [facility] Last Admin: 07/08/17 20:11 Dose: 75 mls/hr Heparin Sodium/Dextrose (Heparin Drip 25,000 Units(*)) 25,000 units in 500 mls @ 0 mls/hr IV .NO INITIAL BOLUS [facility]; As Directed PRN Reason: Protocol Last Admin: 07/09/17 06:16 Dose: 31 mls/hr Insulin Human Lispro (Humalog*) 0 units SUBCUT ACHS KRISTEN PRN Reason: Protocol Last Admin: 07/08/17 20:30 Dose: Not Given Levothyroxine Sodium (Synthroid Tab*) 100 mcg PO 0600 KRISTEN Last Admin: 07/09/17 06:19 Dose: 100 mcg Lorazepam (Ativan Inj*) 0.25 mg IV Q4H PRN PRN Reason: NAUSEA Last Admin: 07/09/17 06:37 Dose: 0.25 mg Nitroglycerin (Nitroglycerin 2% Oint*) 1 inch TOPICAL Q6H KRISTEN PRN Reason: Protocol Last Admin: 07/09/17 06:19 Dose: 1 inch Nitroglycerin (Nitroglycerin Tab 0.4 Mg*) 0.4 mg SL Q5M PRN PRN Reason: ANGINA Senna (Senokot Tab*) 2 tab PO BEDTIME PRN PRN Reason: CONSTIPATION Temazepam (Restoril Cap*) 15 mg PO BEDTIME PRN PRN Reason: INSOMNIA Topiramate (Topamax(*)) 200 mg PO DAILY [facility] Trazodone HCl (Desyrel Tab*) 50 mg PO BEDTIME PRN PRN Reason: SLEEP Home Medications: Home Medications Medication Instructions Recorded Confirmed Type Clopidogrel TAB* [Plavix TAB*] 75 mg PO DAILY 08/10/13 07/08/17 History metFORMIN* [Glucophage 1000 MG TAB 1,000 mg PO BID WITH MEALS 12/18/14 07/08/17 History *] Aspirin EC Low Dose* [Ecotrin EC 81 mg PO DAILY 11/28/16 07/08/17 History Low Dose 81 MG*] Atorvastatin* [Lipitor 80 MG*] 80 mg PO DAILY 11/28/16 07/08/17 History BuPROPion XL* [Bupropion XL*] 450 mg PO DAILY 11/28/16 07/08/17 History Levothyroxine TAB* [Synthroid 100 100 mcg PO DAILY 11/28/16 07/08/17 History MCG TAB*] traZODone TAB* [Desyrel TAB*] 50 - 100 mg PO BEDTIME PRN 11/28/16 07/08/17 History Carvedilol TAB* [Coreg TAB*] 6.25 mg PO BID #60 tab 11/30/16 07/08/17 Rx Bydureon 2 mg INJ MONTHLY 07/08/17 07/08/17 History Fiber-Lax 1,200 mg PO DAILY PRN 07/08/17 07/08/17 History Furosemide TAB* [Lasix TAB*] 20 mg PO EVERY OTHER DAY 07/08/17 07/08/17 History Losartan TAB* [Cozaar TAB*] 25 mg PO DAILY 07/08/17 07/08/17 History Spironolactone TAB* [Aldactone TAB 25 mg PO EVERY OTHER DAY 07/08/17 07/08/17 History 25 MG*] Topiramate 200 mg PO DAILY 07/08/17 07/08/17 History Vitamin D CAP* 5,000 unit PO EVERY OTHER DAY 07/08/17 07/08/17 History Allergies: Allergies Allergy/AdvReac Type Severity Reaction Status Date / Time Gabapentin Allergy Intermediate LOW BLOOD Verified 03/23/17 15:36 PRESSURE Procaine [From Novocain] Allergy Intermediate Hives Verified 03/23/17 15:36 Objective - Vital Signs Vital Signs: Vital Signs 07/08/17 07/08/17 07/08/17 15:10 15:20 15:30 Temperature Pulse Rate 60 96 95 Respiratory 15 17 17 Rate Blood Pressure 130/90 122/88 136/86 (mmHg) O2 Sat by Pulse 99 96 98 Oximetry 07/08/17 07/08/17 07/08/17 15:40 15:50 16:00 Temperature Pulse Rate 51 Respiratory 14 15 13 Rate Blood Pressure 127/87 131/76 136/92 (mmHg) O2 Sat by Pulse 98 Oximetry 07/08/17 07/08/17 07/08/17 16:10 16:20 16:30 Temperature Pulse Rate Respiratory 18 15 19 Rate Blood Pressure 121/78 124/85 133/86 (mmHg) O2 Sat by Pulse Oximetry 07/08/17 07/08/17 07/08/17 16:40 16:50 17:00 Temperature Pulse Rate Respiratory 14 12 12 Rate Blood Pressure 141/68 121/81 123/81 (mmHg) O2 Sat by Pulse Oximetry 07/08/17 07/08/17 07/08/17 17:10 17:13 17:20 Temperature Pulse Rate Respiratory 16 13 Rate Blood Pressure 103/34 127/92 (mmHg) O2 Sat by Pulse Oximetry 07/08/17 07/08/17 07/08/17 17:30 17:40 17:50 Temperature Pulse Rate Respiratory 15 14 11 Rate Blood Pressure 136/81 133/89 138/123 (mmHg) O2 Sat by Pulse Oximetry 07/08/17 07/08/17 07/08/17 18:00 18:32 22:00 Temperature 98.3 F Pulse Rate 107 Respiratory 17 18 22 Rate Blood Pressure 122/74 124/80 (mmHg) O2 Sat by Pulse 94 Oximetry 07/09/17 07/09/17 07/09/17 00:01 02:00 02:10 Temperature 98.2 F 98.9 F Pulse Rate 61 105 Respiratory 20 16 19 Rate Blood Pressure 144/81 121/85 (mmHg) O2 Sat by Pulse 99 99 Oximetry 07/09/17 07/09/17 07/09/17 02:16 02:30 02:45 Temperature Pulse Rate 80 84 95 Respiratory 14 15 14 Rate Blood Pressure 109/83 121/85 112/82 (mmHg) O2 Sat by Pulse 97 96 96 Oximetry 07/09/17 07/09/17 07/09/17 03:00 03:01 03:31 Temperature Pulse Rate 53 84 72 Respiratory 4 11 7 Rate Blood Pressure 130/69 116/69 (mmHg) O2 Sat by Pulse 96 96 95 Oximetry 07/09/17 07/09/17 07/09/17 04:00 04:31 05:00 Temperature Pulse Rate 96 90 90 Respiratory 12 13 14 Rate Blood Pressure 125/65 118/77 (mmHg) O2 Sat by Pulse 97 97 97 Oximetry 07/09/17 07/09/17 07/09/17 05:01 05:22 05:30 Temperature Pulse Rate 91 93 96 Respiratory 11 13 12 Rate Blood Pressure 124/81 109/77 (mmHg) O2 Sat by Pulse 97 84 96 Oximetry 07/09/17 07/09/17 07/09/17 06:00 06:37 06:46 Temperature Pulse Rate 84 91 Respiratory 8 14 14 Rate Blood Pressure 118/87 (mmHg) O2 Sat by Pulse 96 93 Oximetry - Intake and Output Intake and Output: Intake & Output 07/06/17 07/07/17 07/08/17 07/09/17 11:59 11:59 11:59 11:59 Intake Total 1223 Output Total 750 Balance 473 Weight 334 lb 0.005 oz Intake: IV Fluids 720 NS (0.9%) 720 Heparin 503 Oral 0 Output: Urine 750 Other: Estimated Void Medium # Voids 1 ADLs: Meal Record Start: 07/08/17 15: 53 Freq: 09,13,18 Status: Complete Created 07/08/17 15:53 System (Rec: 07/08/17 15:53 System [id number]) ADLs: Meal Record Start: 07/08/17 18: 32 Freq: DAILY@0900,1400,1800 Status: Complete Created 07/08/17 18:32 [id number] (Rec: 07/08/17 18:32 [id number]) ADLs: Meal Record Start: 07/09/17 04: 52 Freq: 09,13,18 Status: Active Created 07/09/17 04:52 [id number] (Rec: 07/09/17 04:52 [id number] [id number]) Intake and Output Start: 07/08/17 09: 56 Freq: Status: Active Created 07/08/17 09:56 System (Rec: 07/08/17 09:56 System [id number]) Intake and Output Start: 07/08/17 15: 53 Freq: 06,14,22 Status: Complete Created 07/08/17 15:53 System (Rec: 07/08/17 15:53 System [id number]) Intake and Output Start: 07/08/17 18: 32 Freq: DAILY@0600,1400,2200 Status: Complete Created 07/08/17 18:32 [id number] (Rec: 07/08/17 18:32 [id number]) Document 07/08/17 22:00 [id number] (Rec: 07/08/17 23:01 [id number]) Document 07/09/17 03:00 [id number] (Rec: 07/09/17 03:01 [id number] [id number]) Document 07/09/17 04:00 [id number] (Rec: 07/09/17 04:19 [id number] ICU-C15) Document 07/09/17 06:00 [id number] (Rec: 07/09/17 06:46 [id number] ICU-C15) Intake and Output Start: 07/09/17 04: 52 Freq: 06,14,22 Status: Active Created 07/09/17 04:52 [id number] (Rec: 07/09/17 04:52 [id number] [id number]) - Physical Exam General Physical Exam Comment: Warm and well perfused, not in acute distress. He is hemodynamically stable. General: No Cyanosis, No Anemia, No Jaundice, No Lymphadenopathy, No Clubbing Skin: Normal: Lesions Lungs and Chest: Yes: Chest Expansion Full, Chest Expansion Symetrica, Percussion Note Resonant, Vessicular Breath Sounds. No: Crackles, Wheezes Heart Rate and Rhythm: Regular - extrasystoles Additional Cardiovascular: Yes: Normal Heart Sounds, Heart Murmur - soft systolic. No: Carotid Bruits, Pedal Edema Abdominal Exam: Yes: Soft, Bowel Sounds Present. No: Distention, Abdominal Mass , Hepatomegaly, Abdominal Tenderness - Extremities Cranial Nerves II-XII Intact: Yes Limbs: Normal Power, Normal Tone - Neuro Orientation: A/O x3 Psychiatric: Normal Results - Results Lab Results: Laboratory Results - last 24 hr 07/08/17 07/08/17 07/08/17 16:26 16:26 16:26 WBC 9.8 RBC 4.24 Hgb 13.1 L Hct 40 L MCV 95 H MCH 31 MCHC 33 RDW 13 Plt Count 201 MPV 9 Neut % (Auto) 71.1 Lymph % (Auto) 22.1 L Carbon % (Auto) 5.5 Eos % (Auto) 0.7 Baso % (Auto) 0.6 Absolute Neuts (auto) 6.9 Absolute Lymphs (auto) 2.2 Absolute Monos (auto) 0.5 Absolute Eos (auto) 0.1 Absolute Basos (auto) 0.1 Absolute Nucleated RBC 0.01 Nucleated RBC % 0.1 INR (Anticoag Therapy) 0.94 APTT 116.8 H* BUN POC Glucose (mg/dL) Magnesium Troponin I B-Natriuretic Peptide 191 H Triglycerides Cholesterol LDL Cholesterol HDL Cholesterol 07/08/17 07/08/17 07/09/17 16:26 20:16 00:32 WBC RBC Hgb Hct MCV MCH MCHC RDW Plt Count MPV Neut % (Auto) Lymph % (Auto) Carbon % (Auto) Eos % (Auto) Baso % (Auto) Absolute Neuts (auto) Absolute Lymphs (auto) Absolute Monos (auto) Absolute Eos (auto) Absolute Basos (auto) Absolute Nucleated RBC Nucleated RBC % INR (Anticoag Therapy) APTT BUN 16 POC Glucose (mg/dL) 108 H Magnesium 1.8 L Troponin I 2.27 H* 32.86 H* B-Natriuretic Peptide Triglycerides Cholesterol LDL Cholesterol HDL Cholesterol 07/09/17 07/09/17 07/09/17 00:32 05:35 05:35 WBC 11.7 H RBC 4.16 Hgb 12.9 L Hct 39 L MCV 94 MCH 31 MCHC 33 RDW 13 Plt Count 175 MPV 10 Neut % (Auto) 61.5 Lymph % (Auto) 30.2 Carbon % (Auto) 6.6 Eos % (Auto) 1.2 Baso % (Auto) 0.5 Absolute Neuts (auto) 7.2 Absolute Lymphs (auto) 3.5 Absolute Monos (auto) 0.8 Absolute Eos (auto) 0.1 Absolute Basos (auto) 0.1 Absolute Nucleated RBC 0 Nucleated RBC % 0 INR (Anticoag Therapy) APTT 55.0 H BUN POC Glucose (mg/dL) Magnesium Troponin I > 82.00 H* B-Natriuretic Peptide Triglycerides 140 Cholesterol 118 LDL Cholesterol 55 HDL Cholesterol 34.8 EKG Report: EK LA 183 QTc 477 QRS -33 Sinus rhythm with multiple PVCs, no runs. Diffuse ST changes. Old inferior Q waves Assessment - Problem List Assessment: Patient Problems Myocardial infarction acute (Acute) Microalbuminuria (Chronic) Obstructive sleep apnea treated with bilevel positive airway pressure (BiPAP) ( Chronic) Dyspnea (Acute) Systolic and diastolic CHF, acute (Acute) Coronary artery disease (Chronic) Diverticulosis (Chronic) Essential (primary) hypertension (Chronic) Hypercholesteremia (Chronic) Moderate mitral regurgitation (Chronic) Nephrolithiasis (Chronic) Obesity, morbid, BMI 50 or higher (Chronic) PTSD (post-traumatic stress disorder) (Chronic) Primary hypothyroidism (Chronic) 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 He no longer has symptoms of chest pain or acute dyspnea. His nausea has improved. He has no signs of cardiogenic shock, pathological arrythmias or acute heart failure. He is fully anticoagulated and has received a bolus of plavix plus aspirin. He is due for a cardiac catheterization today. had coronary artery ectasia demonstrated previously. I note that this episode is coincident with an interruption of his supply of plavix. Obstructive sleep apnea treated with bilevel positive airway pressure (BiPAP) ( Chronic) Dyspnea (Acute) This is improved Systolic and diastolic CHF, acute (Acute) He has no signs of acute dyspnea this morning, but this is helped by continuous O2. 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 I note that this episode is coincident with an interruption of his supply of plavix I discussed the above with the patient and he agrees with the management plan, he wishes to be full code.
[2017-07-09] MEDS ORDERED: D5W 1/2 NS 1000 ML BAG* 1,000 ML IV SCH (09:00)
[2017-07-09] MEDS ORDERED: Atorvastatin* 80 MG TAB PO SCH (09:00)
[2017-07-09] MEDS ORDERED: BuPROPion XL* 150 MG TAB.XL PO SCH (09:00)
[2017-07-09] MEDS ORDERED: Clopidogrel TAB* 75 MG PO SCH (09:00)
[2017-07-09] MEDS ORDERED: Losartan TAB* 25 MG PO SCH (09:00)
[2017-07-09] MEDS ORDERED: Aspirin EC Low Dose* 81 MG TAB.EC PO SCH (09:00)
[2017-07-09] MEDS ORDERED: Topiramate TAB(*) 100 MG PO SCH (09:00)
[2017-07-09] MEDS: Carvedilol TAB* 6.25 MG PO SCH (09:18)
[2017-07-09] MEDS: Insulin LISPRO* 1 UNITS UNIT SUBCUT SCH ×3 (09:33→18:04)
[2017-07-09 12:10] LABS: Anion Gap 8 mmol/L (2-11); BUN/Creatinine Ratio 14.3 (8-20); Blood Urea Nitrogen 14 mg/dL (6-24); CO2 Carbon Dioxide 24 mmol/L (22-32); Calcium 8.8 mg/dL (8.6-10.3); Chloride 105 mmol/L (101-111); EGFR African American 101.4 (>60); EGFR Non-African American 78.8 (>60); Glucose 101 mg/dL (70-100); Potassium 4.2 mmol/L (3.5-5.0); Sodium 137 mmol/L (133-145)
--- NOTE | 2017-07-09 12:16 | ECHO ---
Patient: TRENT AGGARWAL [facility] Rec#: [id number] : 1960 Date: 07/09/2017 Age: 57y Height: 167.64 cm / 66.0 in Weight: 146.51 kg / 322.9 lbs Sex: M BSA: 2.45 Room#: ICU 3 Admit Date#: 07/08/2017 Type: Inpatient Referring: Adelso Hayes DO Reading: Gómez Vo MD Gem Setter: Dayanna Gonsalves RDCS,RDMS CC: Clifford Aranda MD Transthoracic Echocardiogram Indication: NSTEMI BP: 118/87 HR: 102 Rhythm: Tachycardia Findings History: CAD, HTN, HLD, DM, CHF, TYRA, TIA, morbid obesity Technical Comments: The study is technically limited due to poor acoustic windows. Left Ventricle: The left ventricular chamber size is normal. Mild concentric left ventricular hypertrophy is observed. There is a focal wall motion abnormality present. There is mild to moderately decreased left ventricular systolic function. The estimated ejection fraction is 35-40%. Abnormal left ventricular diastolic filling is observed, consistent with impaired relaxation. The basal inferolateral, basal inferior, and mid inferolateral wall segments are hypokinetic (score 2). The mid inferior, apical lateral, and apical inferior wall segments are akinetic (score 3). Overall wallmotion score index is 2.50 Left Atrium: The left atrium is slightly dilated. Right Ventricle: The right ventricular chamber size and systolic function are within normal limits. Right Atrium: The right atrial cavity size is normal. Aortic Valve: The aortic valve leaflets are mildly thickened. There is no evidence of aortic regurgitation. There is no evidence of aortic stenosis. Mitral Valve: The mitral valve leaflets are mildly thickened. There is mild to moderate mitral regurgitation. There is no evidence of mitral stenosis. Tricuspid Valve: The tricuspid valve leaflets are normal. There is trace tricuspid regurgitation. Unable to estimate the right ventricular systolic pressure. Pulmonic Valve: The pulmonic valve structure is not well visualized. There is no evidence of pulmonic regurgitation. Pericardium: There is no significant pericardial effusion. Aorta: The ascending aorta is not well visualized. There is no dilatation of the aortic arch. There is mild dilatation of the aortic root. Pulmonary Artery: The main pulmonary artery is not well visualized. Venous: The inferior vena cava appears normal in size. There is a greater than 50% respiratory change in the inferior vena cava dimension. Contrast: Definity was used to optimize study. A total of 4 ml was used Conclusions There is mild to moderately decreased left ventricular systolic function. The estimated ejection fraction is 35-40%. There is a focal wall motion abnormality present. There is no evidence of aortic stenosis. There is mild to moderate mitral regurgitation. There is trace tricuspid regurgitation. Unable to estimate the right ventricular systolic pressure. The ascending aorta is not well visualized. There is no significant pericardial effusion. Compared to study of 08/11/15, the LV function is slightly worse Measurements Name Value Normal Range RVIDd (AP) 2D 2.3 cm (0.9 - 2.6) RVDdMajor (2D) 4.4 cm (2.2 - 4.4) RAd ISD 4CH 3.9 cm (3.4 - 4.9) RA (A4C)W 3.2 cm (2.9 - 4.6) IVSd (2D) 1.2 cm (0.6 - 1) LVPWd (2D) 1.2 cm (0.6 - 1) LVIDd (2D) 4.8 cm (3.6 - 5.4) LVIDs (2D) 4.3 cm - LV FS (2D) 10 % (25 - 45) Aortic Annulus 2.6 cm (1.4 - 2.6) Ao root diameter (2D) 3.7 cm (2.1 - 3.5) Aortic arch 3.3 cm (1.8 - 3.4) LA dimension (AP) 2D 4.3 cm (2.3 - 3.8) LAd ISD 4CH 4.7 cm (2.9 - 5.3) LA ISD 4CH W 5.2 cm (2.5 - 4.5) Name Value Normal Range LA ESV SP 4CH (A/L) 77.11 ml - LA ESV SP 2CH (A/L) 43.69 ml - LA ESV BP (A/L) 58.34 ml - LA ESV BP (A/L) index 24 ml/m2 - LA ESV SP 4CH (MOD) 67.88 ml - LA ESV SP 2CH (MOD) 41.84 ml - Name Value Normal Range MV E-wave Vmax 0.5 m/sec - MV deceleration time 66.3 msec - MV A-wave Vmax 1 m/sec - MV E:A ratio 0.5 ratio - LV septal e' Vmax 0.04 m/sec - LV lateral e' Vmax 0.05 m/sec - LV E:e' septal ratio 13 ratio - LV E:e' lateral ratio 10 ratio - Name Value Normal Range AV Vmax 1.3 m/sec - AV VTI 23.3 cm - AV peak gradient 7 mmHg - AV mean gradient 4.1 mmHg - LVOT Vmax 0.8 m/sec - LVOT VTI 13.7 cm - LVOT peak gradient 2.6 mmHg - LVOT mean gradient 1.2 mmHg - JAMES Vmax 0.6 m/sec - Name Value Normal Range MV Vmax 1.1 m/sec - MV VTI 19 cm - MV peak gradient 5 mmHg - MV mean gradient 2.3 mmHg - MV PHT 26 msec - MR Vmax 4.7 m/sec - MR VTI 147 cm - MR flow (PISA) 47.41 ml/sec - MR ERO 0.9 cm2 - MR PISA radius 0.5 cm - MR alias Vmax 27 cm/sec - MVA (PHT) 8.5 cm2 - Name Value Normal Range RAP 8 mmHg - IVC diameter 1.5 cm - Name Value Normal Range PV Vmax 0.7 m/sec - PV peak gradient 2 mmHg - Wallmotion BAS Not Seen BA Not Seen BAL Not Seen CALLI Hypokinetic BI Hypokinetic BIS Not Seen MAS Not Seen MA Not Seen MAL Not Seen MIL Hypokinetic AZ Akinetic MIS Not Seen Not Seen AA Not Seen AL Akinetic AI Akinetic APEX Not Seen
--- NOTE | 2017-07-09 15:44 | TRS ---
CC: Dr. Clifford Aranda; Dr. Moser * TRANSFER SUMMARY: DATE OF ADMISSION: 07/08/17 DATE OF DISCHARGE: 07/09/17 PRIMARY CARE PHYSICIAN: Dr. Clifford Aranda. TRACING LATHE SET UP OPERATOR: Dr. Moser. DISCHARGE DIAGNOSES: 1. 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 2. Diabetes type 2. 3. Morbid obesity. 4. Hypertension. 5. Obstructive sleep apnea. 6. History of prior cerebrovascular accident. 7. Chronic kidney disease stage 2. PROCEDURES: Echocardiogram, telemetry. CONDITION ON TRANSFER: Stable. TRANSFER MEDICATIONS: 1. Aspirin 81 mg daily. 2. Lipitor 80 mg daily. 3. Carvedilol 6.25 b.i.d. 4. Plavix 75 mg daily after 600 mg loading dose. 5. IV heparin infusion subcu. 6. Lispro. 7. Synthroid 100 mcg daily. 8. Nitro paste 1 inch q.6. 9. Nitroglycerin 0.4 sublingual p.r.n. 10. Temazepam 50 mg h.s. p.r.n. 11. Topiramate 200 mg daily. 12. Trazodone 50 mg h.s. HISTORY: See H and P. LABORATORY DATA/DIAGNOSTIC STUDIES: CBC today white count 11.7, hemoglobin 12.9 , hematocrit 39, normal platelet count. Chemistries today, BUN 14, creatinine 0.98, GFR 78.8, glucose 101. His troponin was 2.48, 1.81, 2.27, 32.86, greater than 82, has not yet peaked. Cholesterol 118, triglycerides 140, LDL 55, HDL 34.8. BNP 191. Chest x-ray by my review shows cardiomegaly. CTA from the ER was negative for pulmonary embolus or aortic dissection. Electrocardiogram on presentation, 07/08/17 shows small inferior Q waves, sinus rhythm with frequent ectopy, nonspecific T-wave change in I and aVL as well as lateral precordial T-wave flattening, early transition in the right precordial leads. No diagnostic ST elevation. At 0600 today, EKG shows inferior Q waves, again early transition, frequent ectopy, and again nonspecific ST changes. Echocardiogram reported EF 35% to 40% with an inferolateral and basal wall motion abnormality, [id number] MR. HOSPITAL COURSE: He presented with 4 days of recurring chest pain without ST elevation. He was pain-free in the ER and was admitted to the ICU. Consultation by Dr. Hayes is in the record. He was treated medically. Based on his 2011 cath report when he presented here with a non-ST elevation infarct, he had extensive aneurysm formation and ectasia of the left main, the LAD, circumflex, and right coronary. The circumflex was codominant. He had 50% to 70% circumflex stenosis, questionable stenosis in the RCA, he was treated medically. At that time, he had an EF of 40% to 45% by echo with posterior wall described calcification consistent with a longstanding wall motion abnormality. Repeat echo in January of this year showed EF of 40% to 45%. In 2014, stress imaging reported an inferolateral mixed defect. He was admitted here after about a week of discontinuation of his dual antiplatelet therapy because apparently the pharmacy would not or could not fill it. Based on the report of his cath from 2010, he likely has Kawasaki's with very high likelihood of extensively heavily calcified stenoses, best treated with rotational atherectomy and stenting. 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 I am arranging transfer to tertiary center where rotational atherectomy is available. He is unable to defray the additional cost of transfer to [place], hence I will be contacting Clair Mendiola. Currently, he is hemodynamically stable, pain-free, not in heart failure. [id number]/[facility] #: [id number] MTDD
[2017-07-09 18:39] VITALS: BP 108/82
== END 2017-07-09 19:10 | disposition short-term general hospital (02) | DRG 190 ==
LOC: ED 09:53 → ICU 15:04 → MEDTELE 17:17 → ICU 07-09 01:40
PROVIDERS: ADMIT Internal Medicine; ATTEND Internal Medicine Cardiovascular Disease
DX: I21.4 Non-ST elevation (NSTEMI) myocardial infarction (principal); Z68.43 Body mass index [BMI] 50.0-59.9, adult; M30.3 Mucocutaneous lymph node syndrome [Kawasaki]; E11.22 Type 2 diabetes mellitus with diabetic chronic kidney disease; I25.41 Coronary artery aneurysm; I50.9 Heart failure, unspecified; I13.0 Hypertensive heart and chronic kidney disease with heart failure and stage 1 through stage 4 chronic kidney disease, or unspecified chronic kidney disease; I69.354 Hemiplegia and hemiparesis following cerebral infarction affecting left non-dominant side; N18.2 Chronic kidney disease, stage 2 (mild); E66.01 Morbid (severe) obesity due to excess calories; G47.33 Obstructive sleep apnea (adult) (pediatric); Z79.82 Long term (current) use of aspirin; Z79.02 Long term (current) use of antithrombotics/antiplatelets; I34.0 Nonrheumatic mitral (valve) insufficiency; I71.9 Aortic aneurysm of unspecified site, without rupture; E78.5 Hyperlipidemia, unspecified; I25.10 Atherosclerotic heart disease of native coronary artery without angina pectoris; K57.90 Diverticulosis of intestine, part unspecified, without perforation or abscess without bleeding; Z87.442 Personal history of urinary calculi; E03.9 Hypothyroidism, unspecified; F43.10 Post-traumatic stress disorder, unspecified; Z88.8 Allergy status to other drugs, medicaments and biological substances; Z80.3 Family history of malignant neoplasm of breast; Z56.0 Unemployment, unspecified; E87.5 Hyperkalemia; R11.0 Nausea; I25.2 Old myocardial infarction; R80.9 Proteinuria, unspecified
CPT/HCPCS: 36415; 71010; 71275; 80048; 80053; 80061; 83036; 83605; 83735; 83880; 84484; 84520; 85025; 85610; 85730; 87641; 93005; 93306; A9270-GY; C8929; J1644; J2060; J2405; J3475; Q9967

== ENCOUNTER 2018-06-16 03:39 | Observation (INO) | payer OTHER ==
--- NOTE | 2018-06-16 03:56 | ED ---
Lower Extremity - HPI Summary HPI Summary: This is david Young documenting for attending Dr. Fernando Rush. Pt is a 58 y/o M who presents to ED c/o pain in right knee. He tripped and fell 2 hours ago and notes swelling. Rates his pain intensity as a 9/10 in severity and describes it as aching. Denies head pain. Takes blood thinners Brilinta and 80 mgs of aspirin. - History of Current Complaint Chief Complaint: EDExtremityLower Stated Complaint: KNEE PAIN Time Seen by Provider: 06/16/18 03:41 Hx Obtained From: Patient Mechanism Of Injury: Fall From A Standing Position Onset/Duration: Still Present Severity Currently: Severe Pain Intensity: 9 Pain Scale Used: 0-10 Numeric Character Of Pain: Aching Associated Signs And Symptoms: Positive: Swelling, Knee Pain, Other - NEGATIVE: head pain - Allergies/Home Medications Allergies/Adverse Reactions: Allergies Allergy/AdvReac Type Severity Reaction Status Date / Time gabapentin Allergy Intermediate See Comment Verified 06/16/18 03:49 PMH/Surg Hx/FS Hx/Imm Hx Endocrine/Hematology History: Reports: Hx Diabetes, Hx Thyroid Disease Denies: Hx Anemia, Hx Unexplained Bleeding Cardiovascular History: Reports: Hx Angina - HX, Hx Congenital Heart Disease, Hx Congestive Heart Failure, Hx Coronary Artery Disease, Hx Hypercholesterolemia , Hx Hypertension, Hx Peripheral Vascular Disease - ENLARGED BLOOD VESSELS, Hx Syncope, Hx Valvular Heart Disease - MR, Other Cardiovascular Problems/ Disorders - congenital heart disorder- arteries Denies: Hx Angioplasty, Hx Auto Implanted Cardiovert Defib, Hx Deep Vein Thrombosis, Hx Embolism, Hx Hypotension, Hx Pacemaker/ICD, Hx Rheumatic Fever Respiratory History: Reports: Hx Asthma - CHILDHOOD, Hx Sleep Apnea - on 3L Denies: Hx Chronic Bronchitis, Hx Chronic Obstructive Pulmonary Disease (COPD ), Hx Cystic Fibrosis, Hx Lung Cancer, Hx Pleural Effusion, Hx Pneumonia, Hx Pulmonary Edema, Hx Pulmonary Embolism, Hx Seasonal Allergies Comment Only: Other Respiratory Problems/Disorders - SLEEPS SITTING UP/ DIFFICULTY SLEEPING GI History: Reports: Hx Diverticulosis, Other GI Disorders - "SLIGHTLY INFLAMED LIVER" Denies: Hx Cirrhosis, Hx Crohn's Disease, Hx Gall Bladder Disease, Hx Gastroesophageal Reflux Disease, Hx Gastrointestinal Bleed, Hx Hiatal Hernia, Hx Irritable Bowel, Hx Jaundice, Hx Obstructive Bowel, Hx Ileostomy, Hx Pyloric Stenosis, Hx Ulcer History: Reports: Hx Kidney Stones, Other Problems/Disorders - uretral stents Denies: Hx Acute Renal Failure, Hx Benign Prostatic Hyperplasia, Hx Chronic Renal Failure, Hx Dialysis, Hx Kidney Infection, Hx Renal Disease Musculoskeletal History: Denies: Other Musculoskeletal History Sensory History: Reports: Hx Contacts or Glasses Denies: Hx Cataracts, Hx Eye Injury, Hx Eye Prosthesis, Hx Glaucoma, Hx Legally Blind, Hx Macular Degeneration, Hx Vision Problem, Hx Deafness, Hx Hearing Aid, Hx Hearing Problem, Other Sensory Impairments Opthamlomology History: Reports: Hx Contacts or Glasses Denies: Hx Cataracts, Hx Eye Injury, Hx Eye Prosthesis, Hx Glaucoma, Hx Legally Blind, Hx Macular Degeneration, Hx Vision Problem, Other Sensory Impairments Neurological History: Reports: Hx CVA - 2 as of 07/08/17, Hx Headaches - from NTG , Hx Nerve Disease - neuropathy, C5 damaged, Hx Spinal Cord Injury - pt states trauma at coccyx many years ago, Hx Transient Ischemic Attacks (TIA) Denies: Hx Dementia, Hx Developmental Delay, Hx Migraine, Hx Seizures, Other Neuro Impairments/Disorders - possible TIA/CVA, neuropathies Psychiatric History: Reports: Hx Anxiety - ON MEDICATION FOR, Hx Depression - ON MEDICATION FOR, Hx Post Traumatic Stress Disorder Denies: Hx Panic Disorder - Cancer History Cancer Type, 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 2010 HEART CATHERIZATION, [facility] [place]. 12/25/2014 CYSTOSCOPY BILATERAL RETROGRADE, BILATERAL STENT INSERTION, URETEROSCOPY, TUR BLADDER LESION, [facility] [place]. 01/11/2015 ESWL, CYSTOSCOPY, RIGHT STENT REMOVAL, [facility] Anesthesia Reactions: No - Immunization History Date of Tetanus Vaccine: Unsure Date of Influenza Vaccine: 2011 Infectious Disease History: No Infectious Disease History: Denies: Hx Clostridium Difficile, Hx Hepatitis, Hx Human Immunodeficiency Virus (HIV), Hx of Known/Suspected MRSA, Hx Shingles, Hx Tuberculosis, Hx Known/ Suspected VRE, Hx Known/Suspected VRSA, History Other Infectious Disease, Traveled Outside the in Last 30 Days - Family History Known Family History: Positive: Other - GB disease Negative: Cardiac Disease - Social History Alcohol Use: None Hx Substance Use: No Substance Use Type: Reports: None Hx Tobacco Use: No Smoking Status (MU): Never Smoked Tobacco Have You Smoked in the Last Year: No Review of Systems Positive: Edema - right knee, Other - right knee pain Negative: Headache All Other Systems Reviewed And Are Negative: Yes Physical Exam - Summary Physical Exam Summary: VITAL SIGNS: Reviewed. GENERAL: Morbidly obese. Patient is a well-developed and nourished male who is lying comfortable in the stretcher. Patient is not in any acute respiratory distress. HEAD AND FACE: No signs of trauma. No ecchymosis, hematomas or skull depressions. No sinus tenderness. EYES: PERRLA, EOMI x 2, No injected conjunctiva, no nystagmus. EARS: Hearing grossly intact. Ear canals and tympanic membranes are within normal limits. MOUTH: Oropharynx within normal limits. NECK: Supple, trachea is midline, no adenopathy, no JVD, no carotid bruit, no c- spine tenderness, neck with full ROM. CHEST: Symmetric, no tenderness at palpation LUNGS: Clear to auscultation bilaterally. No wheezing or crackles. CVS: Regular rate and rhythm, S1 and S2 present, no murmurs or gallops appreciated. ABDOMEN: Soft, non-tender. No signs of distention. No rebound no guarding, and no masses palpated. Bowel sounds are normal. EXTREMITIES: Large tense induration above right knee consistent with hematoma. Neurovascular intact in leg. FROM in all major joints, no edema, no cyanosis or clubbing. NEURO: Alert and oriented x 3. No acute neurological deficits. Speech is normal and follows commands. SKIN: Dry and warm Triage Information Reviewed: Yes Vital Signs On Initial Exam: Initial Vitals Temp Pulse Resp BP Pulse Ox 96.5 F 93 14 114/81 97 06/16/18 03:44 06/16/18 03:44 06/16/18 03:44 06/16/18 03:44 06/16/18 03:44 Vital Signs Reviewed: Yes Diagnostics - Vital Signs Vital Signs Temp Pulse Resp BP Pulse Ox 06/16/18 03:44 96.5 F 93 14 114/81 97 - Laboratory Result Diagrams: 06/16/18 18:49 06/16/18 04:44 Lab Statement: Any lab studies that have been ordered have been reviewed, and results considered in the medical decision making process. Re-Evaluation - Re-Evaluation First Eval Re-Evaluation Time: 05:00 - Discussed results with pt. Advised him to stop taking Brilinta and aspirin, but he wants to speak with aging department supervisor first. Second Eval Re-Evaluation Time: 06:15 - Discussed plans to discharge pt, but then he said he lives alone at home so now considering admitting pt. Lower Extremity Course/Dx - Course Course Of Treatment: Pt is a 58 y/o M who presents to ED c/o pain in right knee. He tripped and fell 2 hours ago and notes swelling and denies head pain. Rates his pain intensity as a 9/10 in severity and describes it as aching. Takes blood thinners Brilinta and 80 mgs of aspirin. Physical exam revealed large tense induration above right knee consistent with hematoma, neurovascular intact in leg exam, and pt is morbidly obese. Hip X-ray showed no fracture, pending official report. Knee X-ray showed no fracture, pending official report. In ED course pt was given morphine and Reglan. Discussed results with pt and advised him to stop taking Brilinta and aspirin, but he would like to speak with his aging department supervisor before making that decision. Pt was going to discharged but worried since he lives alone at home with no one to help. Spoke with hospitalist Dr. Hernandez who is coming down to see patient. Pt is diagnosed with hematoma over right thigh. Pt is being signed out to Dr. Winchester. - Diagnoses Provider Diagnoses: Hematoma of right thigh - Physician Notifications Discussed Care Of Patient With: Lester Hernandez - Dr. Hernandez is coming down to see pt to decide whether to admit. Time Discussed With Above Provider: 06:30 Discharge - Sign-Out/Discharge Documenting (check all that apply): Patient Departure - Admit Signing out patient TO: Randal Winchester - Discharge Plan Condition: Stable Disposition: ADMITTED TO [facility]
[2018-06-16] MEDS ORDERED: Morphine INJ* 2 MG/ML 1 ML SYRINGE (TWO MG - NEW SYRINGE VERSION) IV ONE (04:02)
[2018-06-16] MEDS ORDERED: Metoclopramide IV* 5 MG/ML 2 ML VIAL IV SLOW PU ONE (04:02)
[2018-06-16 04:55] LABS: ABS Basophils 0.1 10^3/ul (0-0.2); ABS Eosinophils 0.2 10^3/ul (0-0.6); ABS Lymphocytes 1.7 10^3/ul (1.0-4.8); ABS Monocytes 0.5 10^3/ul (0-0.8); ABS Neutrophils 9.6 10^3/ul (1.5-7.7); ABS Nucleated RBC 0 10^3/ul; Eosinophil % 1.3 % (0-6); Hematocrit 40 % (42-52); Lymphocyte % 14.4 % (25-47); Mean Corpuscular HGB Conc 33 g/dl (31-36); Mean Corpuscular Hemoglobin 31 pg (27-31); Mean Corpuscular Volume 94 fL (80-94); Mean Platelet Volume 9.4 um3 (7.4-10.4); Nucleated Red Blood Cells % 0; Platelet Count 222 10^3/ul (150-450); Red Blood Count 4.26 10^6/ul (4.00-5.40); Red Cell Distribution Width 14 % (10.5-15); White Blood Count 12.1 10^3/ul (3.5-10.8)
[2018-06-16 05:05] LABS: INR 0.92 (0.77-1.02)
[2018-06-16 05:16] LABS: EGFR Non-African American 52.9 (>60)
--- NOTE | 2018-06-16 08:22 | RAD ---
Indication: Right hip injury and fall 2 views of the right hip and an AP view of the pelvis demonstrates no fracture. Sacroiliac joints are intact. IMPRESSION: No fracture of the right hip or pelvis is noted. R0
--- NOTE | 2018-06-16 08:27 | RAD ---
Indication: Right knee pain and swelling 4 views of the right knee are reviewed. There is no fracture or dislocation. No evidence of joint effusion is noted. In the superficial soft tissue there is increased density consistent with superficial hematoma. IMPRESSION: Hematoma superficial to the knee without evidence of intra-articular fluid. No fracture. R0
[2018-06-16] MEDS ORDERED: Morphine INJ* 2 MG/ML 1 ML SYRINGE (TWO MG - NEW SYRINGE VERSION) IV PRN (08:30)
[2018-06-16] MEDS ORDERED: Acetaminophen TAB* 325 MG PO PRN (08:30)
[2018-06-16] MEDS ORDERED: Ondansetron INJ* 2 MG/ML VIAL IV PRN (08:30)
[2018-06-16] MEDS ORDERED: Spironolactone TAB* 25 MG PO SCH (09:00)
[2018-06-16] MEDS ORDERED: Furosemide TAB* 20 MG PO SCH (09:00)
[2018-06-16 09:06] LABS: Hematocrit 37 % (42-52); Hemoglobin 12.3 g/dl (14.0-18.0)
[2018-06-16] MEDS: Atorvastatin* 80 MG TAB PO SCH (10:56)
[2018-06-16] MEDS: Levothyroxine TAB* 100 MCG TAB PO SCH (10:56)
[2018-06-16] MEDS: Aspirin EC TAB* 81 MG TAB.EC PO SCH (10:56)
[2018-06-16] MEDS: Carvedilol TAB* 6.25 MG PO SCH ×2 (10:56→21:16)
[2018-06-16] MEDS: BuPROPion XL* 150 MG TAB.XL PO SCH (10:57)
[2018-06-16] MEDS: BuPROPion XL* 300 MG TAB.XL PO SCH (10:58)
[2018-06-16] MEDS: Topiramate TAB(*) 100 MG PO SCH ×2 (10:59→21:16)
[2018-06-16] MEDS: Losartan TAB* 25 MG PO SCH (10:59)
[2018-06-16] MEDS ORDERED: Dextrose 50% Syringe 50 ML* 25 GM/50 ML SYRINGE IV PUSH PRN (13:23)
[2018-06-16] MEDS: oxyCODONE/Acetamin 5/325 MG* TAB PO PRN ×2 (15:17→23:29)
[2018-06-16] MEDS: Insulin LISPRO* 1 UNITS UNIT SUBCUT SCH ×2 (17:58→21:15)
[2018-06-16 18:57] LABS: Hematocrit 36 % (42-52); Hemoglobin 11.7 g/dl (14.0-18.0)
--- NOTE | 2018-06-16 22:30 | HP ---
CC: Dr. Clifford Aranda * HISTORY AND PHYSICAL: DATE OF ADMISSION: 06/16/18 PRIMARY CARE PROVIDER: Dr. Clifford Aranda. CHIEF COMPLAINT: Mechanical fall and right leg hematoma. HISTORY OF PRESENT ILLNESS: Mr. Cardoso is a 58-year-old man with a complicated medical history that will be detailed below who presents to the ED with pain in his right thigh. The patient mechanically tripped and fell several hours prior to presentation and noted swelling and pain of his right thigh. The patient rated that the pain quite intensely at 9/10 on his pain scale. It was an aching sensation and the patient is having a difficult time walking. He does take Brilinta and aspirin pursuant to a history of non-ST elevation PA (with interventions) and strokes. The patient is stable at this time, but there was an intent to discharge the patient by the emergency room, but the patient could not ambulate easily and so , he was referred for observation status, pain control, icing of the affected area, and general monitoring. PAST MEDICAL HISTORY: 1. Admission in 2016 for non-ST elevation PA, for which he was catheterized and transferred to [place] for roto-ablation therapy. 2. History of TIA in 2013 with left-sided residual weakness. 3. Essential hypertension. 4. Type 2 diabetes with retinopathy. 5. Coronary disease, status post cardiac catheterization in 2010, with ectasia and aneurysmal dilatation and subsequent medical treatment. 6. Obstructive sleep apnea, on CPAP and oxygen at night. 7. Diverticulosis - chronic. 8. Hypertension. 9. Hyperlipidemia. 10. History of nephrolithiasis, status post ureteral stenting in 2014. 11. PTSD. 12. Morbid obesity - BMI greater than 50. 13. Hypothyroidism, on Synthroid replacement. 14. History of congestive heart failure with echocardiograms showing EF below 50% and ceix-ur-mxagodou mitral regurgitation. PAST SURGICAL HISTORY: Multiple surgeries on cervical spine and bilateral shoulder surgeries as well. MEDICATIONS: Outpatient medications: 1. Bydureon 2 mg injection weekly. 2. Fiber-Lax 1200 mg by mouth daily as needed. 3. Metformin 1000 mg by mouth twice daily with meals. 4. Brilinta 90 mg by mouth twice daily. 5. Vitamin D 5000 units by mouth every other day. 6. Aspirin 81 mg by mouth daily. 7. Lipitor 80 mg by mouth daily. 8. Bupropion XL 450 mg by mouth daily. 9. Coreg 6.25 mg by mouth twice daily. 10. Lasix 20 mg by mouth every other day. 11. Synthroid 100 mcg by mouth daily. 12. Cozaar 12.5 mg by mouth daily. 13. Spironolactone 25 mg by mouth every other day. 14. Topiramate 200 mg by mouth twice daily. ALLERGIES: GABAPENTIN. FAMILY HISTORY: Positive for a mother with a history of breast cancer. SOCIAL HISTORY: The patient is unemployed. 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 He denies tobacco, alcohol, or drug use. He is and has a public health social worker in the outpatient setting who is his surrogate decision maker (named - see contact information later in this document). REVIEW OF SYSTEMS: A review of 14 body systems was accomplished at the bedside at the point of admission. Pertinent positives are detailed above in the HPI and past medical history. Of note, the patient uses oxygen and CPAP at night only. The patient denies any recent cough or fevers or feelings of medical illness. The patient denies any nausea and his appetite has been adequate. His weight has been stable. PHYSICAL EXAMINATION On admission: GENERAL APPEARANCE: Obese, middle-aged, elderly-appearing man, in no apparent distress. He is lying flat on the emergency room [facility]. He is polite and interactive and a reasonable historian. VITAL SIGNS: Temperature 97 degrees Fahrenheit, pulse 70s, oxygen saturation 98 % room air, respirations 16 to 18 and unlabored, blood pressure has been in the 100 to 110s over 50s to 80s. HEENT: Oropharynx is clear. Mucous membranes are moist. NECK: Supple. No elevated JVD, but difficult to assess secondary to the patient's current supine position. CHEST: Clear breath sounds anteriorly and posteriorly. HEART: Regular rate and rhythm. No murmurs appreciated. ABDOMEN: Soft and nontender. EXTREMITIES: Without clubbing, cyanosis, or edema, but his right thigh is swollen with clear hematoma on the lateral aspect of the thigh where he fell and struck his leg. There is an ice pack on it. He is expressing relief from that. Distal neurovascular function is intact ipsilateral to the hematoma. PSYCH: Normal. No acute anxiety or depression. LYMPH: No adenopathy appreciated. ADMISSION DATA: White blood cell count elevated at 12.1, hemoglobin 13.0, platelets 222. INR 0.92. Chemistry significant for depressed carbon dioxide level at 18, though that is consistent with previous values for that lab parameter. His creatinine is 1.38 and that is consistent with his known history of diabetic nephropathy. His glucose is 194. His LFTs are unremarkable. His magnesium is modestly low at 1.8. Total protein and albumin are preserved. A knee/pelvic x-ray and a knee x-ray done at 4 a.m. during this emergency room stay were normal for acute fracture or deformity of the right leg involved with his fall. IMPRESSION AND PLAN: Mr. Cardoso is a 58-year-old gentleman who had an unfortunate mechanical fall, but has a baseline of unsteady gait pursuant to an old stroke, who now experiences intractable right leg pain and a subsequent inability to walk pursuant to a hematoma at the site of trauma. Clearly, the patient's antiplatelet therapy has contributed to this situation. He is doing slowly better with opiate analgesia and the patient will be placed observation status and his pain will be controlled and the area will be intermittently treated with ice packs. He will be slowly ambulated over the course of the next 16 to 24 hours and the plan is for him to be discharged the morning of 06/17/18 after his pain is better controlled. In the interim, I will check a hemoglobin level tonight and then again tomorrow morning to make sure that the hematoma is not expanding or the patient is not slowly losing blood from another source given his antiplatelet regimen in the setting of a fall. The remainder of his outpatient therapies will be continued. His meds were detailed above and they will all be continued with the exception of the patient' s metformin should he need a contrast study. We will also hold his Brilinta considering his traumatic fall, as well as his Bydureon, which is not on formulary here at the hospital (and because the patient does not have other means to access it through a friend or other connection.) The patient is full code. Surrogate decision maker is the patient's public health social worker, named , who can be reached at [phone] or [phone]. TIME SPENT: Total time taken to admit Mr. Cardoso was 65 minutes, greater than half that time was spent at the bedside going over the history and physical examination, explaining the hospital plan of care to the patient. Status at this time observation. [id number]/[facility] #: [id number] MTDD
[2018-06-17] MEDS: oxyCODONE/Acetamin 5/325 MG* TAB PO PRN ×2 (04:19→12:20)
[2018-06-17] MEDS: Levothyroxine TAB* 100 MCG TAB PO SCH (06:13)
[2018-06-17 06:53] LABS: ABS Basophils 0 10^3/ul (0-0.2); ABS Eosinophils 0.1 10^3/ul (0-0.6); ABS Lymphocytes 4.1 10^3/ul (1.0-4.8); ABS Monocytes 0.7 10^3/ul (0-0.8); ABS Nucleated RBC 0 10^3/ul; Eosinophil % 1.3 % (0-6); Hematocrit 32 % (42-52); Hemoglobin 10.8 g/dl (14.0-18.0); Mean Corpuscular HGB Conc 34 g/dl (31-36); Mean Corpuscular Hemoglobin 31 pg (27-31); Mean Corpuscular Volume 92 fL (80-94); Mean Platelet Volume 9.1 um3 (7.4-10.4); Nucleated Red Blood Cells % 0.1; Platelet Count 178 10^3/ul (150-450); Red Cell Distribution Width 14 % (10.5-15)
[2018-06-17 07:06] LABS: EGFR Non-African American 57.7 (>60)
--- NOTE | 2018-06-17 07:51 | PN ---
Subjective - Subjective Reason for Note: Discharge Note History: DISCHARGE SUMMARY: I obtained Mr. Aggarwal from the patient, Dr. Hernandez directly and also from his admitting history and physical. He had a mechanical fall at home at night when he tripped over an electrical cord. He took the force of the fall on his right knee. He had severe pain and was unable to walk. He was admitted as he had uncontrolled pain and also a large hematoma on oral anticoagulants. Yesterday, the pain in his knee improved. He was able to walk around the [place] x 2 with a rolling walker after receiving oxycodone. Today, he has minor pain at rest in his right knee. Otherwise, he is well. His diabetes is well controlled - last A1c 6% Active Problems: Active Problems Anemia (Acute) D64.9 Anticoagulation adequate with anticoagulant therapy (Acute) Z79.01 Fall from other slipping, tripping, or stumbling (Acute) W01.0XXA Hematoma (Acute) T14.8XXA Traumatic hematoma of right knee (Acute) S80.01XA Coronary artery disease (Chronic) I25.10 He will get his doses of ASA and clopidogrel for today. All meds ordered except metformin. Diverticulosis (Chronic) K57.90 Essential (primary) hypertension (Chronic) I10 Losartan and metoprolol ordered. Hypercholesteremia (Chronic) E78.0 Statin ordered. Microalbuminuria (Chronic) R80.9 Mitral regurgitation (Chronic) Nephrolithiasis (Chronic) N20.0 Obstructive sleep apnea treated with bilevel positive airway pressure (BiPAP) ( Chronic) G47.33 PTSD (post-traumatic stress disorder) (Chronic) F43.10 Primary hypothyroidism (Chronic) E03.9 Home dose levothyroxine ordered. TSH wnl 08/2016. 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 Metformin on hold. Current Medications: Current Medications Acetaminophen (Tylenol Tab*) 650 mg PO Q4H PRN PRN Reason: FEVER/PAIN Aspirin (Aspirin Ec Tab*) 81 mg PO DAILY [facility] Last Admin: 06/16/18 10:56 Dose: 81 mg Atorvastatin Calcium (Lipitor*) 80 mg PO DAILY [facility] Last Admin: 06/16/18 10:56 Dose: 80 mg Bupropion HCl (Bupropion Xl*) 300 mg PO DAILY [facility] Last Admin: 06/16/18 10:58 Dose: 300 mg Bupropion HCl (Wellbutrin Xl *) 150 mg PO DAILY [facility] Last Admin: 06/16/18 10:57 Dose: 150 mg Carvedilol (Coreg Tab*) 6.25 mg PO BID [facility] Last Admin: 06/16/18 21:16 Dose: 6.25 mg Dextrose (D50w Syringe 50 Ml*) 12.5 gm IV PUSH .FOR FS < 60 - SS PRN PRN Reason: FS < 60 Furosemide (Lasix Tab*) 20 mg PO EVERY OTHER DAY [facility] Last Admin: 06/16/18 10:58 Dose: 20 mg Insulin Human Lispro (Humalog*) 0 units SUBCUT ACHS [facility]; Protocol Last Admin: 06/16/18 21:15 Dose: 2 units Levothyroxine Sodium (Synthroid Tab*) 100 mcg PO 0600 [facility] Last Admin: 06/17/18 06:13 Dose: 100 mcg Losartan Potassium (Cozaar Tab*) 12.5 mg PO DAILY [facility] Last Admin: 06/16/18 10:59 Dose: 12.5 mg Morphine Sulfate (Morphine Inj ((Syringe))*) 2 mg IV Q4H PRN PRN Reason: PAIN - MILD Ondansetron HCl (Zofran Inj*) 4 mg IV Q4H PRN PRN Reason: NAUSEA/VOMITING Oxycodone/Acetaminophen (Percocet 5/325 Tab*) 1 tab PO Q4H PRN PRN Reason: Pain Last Admin: 06/17/18 04:19 Dose: 1 tab Spironolactone (Aldactone Tab*) 25 mg PO EVERY OTHER DAY [facility] Last Admin: 06/16/18 10:56 Dose: 25 mg Topiramate (Topamax(*)) 200 mg PO BID [facility] Last Admin: 06/16/18 21:16 Dose: 200 mg - Review of Systems Pulmonary: Negative: Cough, Sputum Cardiology: Negative: Chest Pain, Shortness of Breath, Palpitations, Swelling of Ankles Gastroenterology: Negative: Abdominal Pain, Nausea, Vomiting, Change in Bowel Habits Genitourinary - Male: Abnormal: Prostatism Home Medications: Home Medications Medication Instructions Recorded Confirmed Type metFORMIN* [Glucophage 1000 MG TAB 1,000 mg PO BID WITH MEALS 12/18/14 06/16/18 History *] Aspirin EC TAB* [Ecotrin EC Low 81 mg PO DAILY 11/28/16 06/16/18 History Dose 81 MG*] Atorvastatin* [Lipitor 80 MG*] 80 mg PO DAILY 11/28/16 06/16/18 History BuPROPion XL* [Bupropion XL*] 450 mg PO DAILY 11/28/16 06/16/18 History Levothyroxine TAB* [Synthroid 100 100 mcg PO DAILY 11/28/16 06/16/18 History MCG TAB*] Carvedilol TAB* [Coreg TAB*] 6.25 mg PO BID #60 tab 11/30/16 06/16/18 Rx Bydureon 2 mg INJ WEEKLY 07/08/17 06/16/18 History Fiber-Lax 1,200 mg PO DAILY PRN 07/08/17 06/16/18 History Furosemide TAB* [Lasix TAB*] 20 mg PO EVERY OTHER DAY 07/08/17 06/16/18 History Losartan TAB* [Cozaar TAB*] 12.5 mg PO DAILY 07/08/17 06/16/18 History Spironolactone TAB* [Aldactone TAB 25 mg PO EVERY OTHER DAY 07/08/17 06/16/18 History 25 MG*] Topiramate 200 mg PO BID 07/08/17 06/16/18 History Vitamin D CAP* 5,000 unit PO EVERY OTHER DAY 07/08/17 06/16/18 History Ticagrelor* [Brilinta 90 MG*] 90 mg PO BID 11/20/17 06/16/18 History oxyCODONE/Acetamin 5/325 MG* 1 tab PO Q6H PRN #20 tab MDD 4 06/16/18 Rx [Percocet 5/325 TAB*] Allergies: Allergies Allergy/AdvReac Type Severity Reaction Status Date / Time gabapentin Allergy Intermediate See Comment Verified 06/16/18 03:49 Objective - Vital Signs Vital Signs: Vital Signs 06/16/18 06/16/18 06/16/18 08:00 09:15 10:18 Temperature 97 F Pulse Rate 83 76 Respiratory 18 Rate Blood Pressure 97/59 97/59 (mmHg) O2 Sat by Pulse 97 98 Oximetry 06/16/18 06/16/18 06/16/18 10:46 13:46 15:17 Temperature 98.1 F Pulse Rate 91 Respiratory 16 16 16 Rate Blood Pressure 109/62 (mmHg) O2 Sat by Pulse 99 Oximetry 06/16/18 06/16/18 06/16/18 15:35 17:15 19:19 Temperature 97.2 F 98.1 F Pulse Rate 96 88 Respiratory 16 16 16 Rate Blood Pressure 117/64 103/70 (mmHg) O2 Sat by Pulse 100 99 Oximetry 06/16/18 06/16/18 06/17/18 23:27 23:29 01:30 Temperature 97.9 F Pulse Rate 86 Respiratory 16 20 18 Rate Blood Pressure 126/85 (mmHg) O2 Sat by Pulse 96 Oximetry 06/17/18 06/17/18 06/17/18 04:12 04:19 07:22 Temperature 97.9 F 98.0 F Pulse Rate 97 91 Respiratory 16 20 18 Rate Blood Pressure 120/61 118/74 (mmHg) O2 Sat by Pulse 97 100 Oximetry - Intake and Output Intake and Output: Intake & Output 06/14/18 06/15/18 06/16/18 06/17/18 11:59 11:59 11:59 11:59 Intake Total 1000 Output Total 210 Balance 790 Weight 305 lb 307 lb Intake: Oral 1000 Output: Urine 210 Other: Estimated Void Medium # Bowel Movements 0 # Voids 1 ADLs: Meal Record Start: 06/16/18 09: 12 Freq: DAILY@0900,1400,1800 Status: Active Protocol: Created 06/16/18 09:12 System (Rec: 06/16/18 09:12 System [id number]) Document 06/16/18 13:44 [id number] (Rec: 06/16/18 13:56 [id number] [id number]) ADLs: Meal Record Start: 06/16/18 17: 42 Freq: Status: Active Protocol: Document 06/16/18 17:42 [id number] (Rec: 06/16/18 17:43 [id number] MED-C09) Created 06/16/18 17:42 [id number] (Rec: 06/16/18 17:42 [id number] MED-C09) Intake and Output Start: 06/16/18 03: 47 Freq: Status: Active Protocol: Created 06/16/18 03:47 System (Rec: 06/16/18 03:47 System [id number]) Intake and Output Start: 06/16/18 09: 12 Freq: DAILY@0600,1400,2200 Status: Complete Protocol: Created 06/16/18 09:12 System (Rec: 06/16/18 09:12 System [email or web address]) Document 06/16/18 13:44 [id number] (Rec: 06/16/18 13:56 [id number] MED-C09) - Physical Exam General Physical Exam Comment: He has a hematoma and tenderness over the right knee and thigh. General: No Cyanosis, No Anemia, No Jaundice, No Clubbing Skin: Normal: Rash Lungs and Chest: Yes: Chest Expansion Full, Chest Expansion Symetrica, Percussion Note Resonant, Vessicular Breath Sounds. No: Crackles, Wheezes Heart Rate and Rhythm: Regular Additional Cardiovascular: Yes: Normal Heart Sounds. No: Heart Murmur, Pedal Edema Abdominal Exam: Yes: Soft. No: Distention, Abdominal Tenderness - Extremities Cranial Nerves II-XII Intact: Yes Limbs: Normal Power - Neuro Orientation: A/O x3 Speech: Normal Results - Results Lab Results: Laboratory Results - last 24 hr 06/16/18 06/16/18 06/16/18 09:00 16:36 18:49 WBC RBC Hgb 12.3 L 11.7 L Hct 37 L 36 L MCV MCH MCHC RDW Plt Count MPV Neut % (Auto) Lymph % (Auto) Bailey % (Auto) Eos % (Auto) Baso % (Auto) Absolute Neuts (auto) Absolute Lymphs (auto) Absolute Monos (auto) Absolute Eos (auto) Absolute Basos (auto) Absolute Nucleated RBC Nucleated RBC % Sodium Potassium Chloride Carbon Dioxide Anion Gap BUN Creatinine Est GFR ( Amer) Est GFR (Non-Af Amer) BUN/Creatinine Ratio Glucose POC Glucose (mg/dL) 145 H Calcium 06/16/18 06/17/18 06/17/18 21:05 06:21 06:21 WBC 10.0 RBC 3.50 L Hgb 10.8 L Hct 32 L MCV 92 MCH 31 MCHC 34 RDW 14 Plt Count 178 MPV 9.1 Neut % (Auto) 50.2 Lymph % (Auto) 41.0 Bailey % (Auto) 7.1 H Eos % (Auto) 1.3 Baso % (Auto) 0.4 Absolute Neuts (auto) 5.0 Absolute Lymphs (auto) 4.1 Absolute Monos (auto) 0.7 Absolute Eos (auto) 0.1 Absolute Basos (auto) 0 Absolute Nucleated RBC 0 Nucleated RBC % 0.1 Sodium 139 Potassium 3.8 Chloride 109 Carbon Dioxide 23 Anion Gap 7 BUN 25 H Creatinine 1.28 H Est GFR ( Amer) 69.8 Est GFR (Non-Af Amer) 57.7 BUN/Creatinine Ratio 19.5 Glucose 88 POC Glucose (mg/dL) 138 H Calcium 8.9 Radiology Results: Patient Name: TRENT AGGARWAL Medical Record#: [id number] Ordering Physician: Fernando Rush MD Acct.#: [id number] : 1960 Age: 58 Sex: M Location: EMERGENCY DEPARTMENT Exam Date: 06/16/18400 ADM Status: REG ER Order Information: HIP RIGHT 2 VIEWS AND PELVIS Accession Number: [id number] CPT: 74612 Indication: Right hip injury and fall 2 views of the right hip and an AP view of the pelvis demonstrates no fracture. Sacroiliac joints are intact. IMPRESSION: No fracture of the right hip or pelvis is noted. R0 <Electronically signed by Joanne Solis MD in OV> 06/16/18818 Dictated By: Joanne Solis MD Dictated Date/Time: 06/16/18818 Transcribed Date/Time: 06/16/18817 Copy to: CC:Fernando Rush MD; Clifford Aranda MD Imaging - [facility] Imaging - [facility] Imaging - [facility] [address] [place] [address] ph [phone]) ph ([phone]) ph ([phone]) Patient Name: TRENT AGGARWAL Medical Record#: [id number] Ordering Physician: Fernando Rush MD Acct.#: [id number] : 1960 Age: 58 Sex: M Location: EMERGENCY DEPARTMENT Exam Date: 06/16/18 0401 ADM Status: REG ER Order Information: KNEE RIGHT 4+ VWS Accession Number: [id number] CPT: 49330 Indication: Right knee pain and swelling 4 views of the right knee are reviewed. There is no fracture or dislocation. No evidence of joint effusion is noted. In the superficial soft tissue there is increased density consistent with superficial hematoma. IMPRESSION: Hematoma superficial to the knee without evidence of intra- articular fluid. No fracture. R0 <Electronically signed by Joanne Solis MD in OV> 06/16/18822 Dictated By: Joanne Solis MD Dictated Date/Time: 06/16/18822 Transcribed Date/Time: 06/16/18818 Copy to: CC:Fernando Rush MD; Clifford Aranda MD Imaging - [facility] Imaging - [facility] - [facility] [address] [place] [address] ph ([phone]) ph ([phone]) ph ([phone]) Assessment - Problem List Assessment: Patient Problems Anemia (Acute) Anticoagulation adequate with anticoagulant therapy (Acute) Fall from other slipping, tripping, or stumbling (Acute) Hematoma (Acute) Traumatic hematoma of right knee (Acute) Coronary artery disease (Chronic) Diverticulosis (Chronic) Essential (primary) hypertension (Chronic) Hypercholesteremia (Chronic) Microalbuminuria (Chronic) Mitral regurgitation (Chronic) Nephrolithiasis (Chronic) Obstructive sleep apnea treated with bilevel positive airway pressure (BiPAP) ( Chronic) PTSD (post-traumatic stress disorder) (Chronic) Primary hypothyroidism (Chronic) 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 He has a large hematoma and some blood loss. We need to maintain his anticoagulation/antiplatelet agents owing to previous MIs when withheld for a few days. His pain is much improved and he is able to carry out his ADLs. He is ready and willing to go home. 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 He will watch out for symptoms of further blood loss
[2018-06-17] MEDS: Insulin LISPRO* 1 UNITS UNIT SUBCUT SCH ×2 (07:55→12:25)
[2018-06-17] MEDS: Atorvastatin* 80 MG TAB PO SCH (08:37)
[2018-06-17] MEDS: BuPROPion XL* 150 MG TAB.XL PO SCH (08:37)
[2018-06-17] MEDS: Aspirin EC TAB* 81 MG TAB.EC PO SCH (08:37)
[2018-06-17] MEDS: Carvedilol TAB* 6.25 MG PO SCH (08:37)
[2018-06-17] MEDS: BuPROPion XL* 300 MG TAB.XL PO SCH (08:37)
[2018-06-17] MEDS: Topiramate TAB(*) 100 MG PO SCH (08:38)
[2018-06-17] MEDS: Losartan TAB* 25 MG PO SCH (08:38)
[2018-06-17 13:48] VITALS: BP 107/56
== END 2018-06-17 14:35 | disposition home or self-care (01) ==
LOC: ED 03:39 → MED 09:05
PROVIDERS: ADMIT Internal Medicine; ATTEND Internal Medicine
DX: S80.01XA Contusion of right knee, initial encounter (principal); M25.561 Pain in right knee; D64.9 Anemia, unspecified; Z79.01 Long term (current) use of anticoagulants; I25.10 Atherosclerotic heart disease of native coronary artery without angina pectoris; K57.90 Diverticulosis of intestine, part unspecified, without perforation or abscess without bleeding; I10 Essential (primary) hypertension; E78.00 Pure hypercholesterolemia, unspecified; R80.9 Proteinuria, unspecified; I34.0 Nonrheumatic mitral (valve) insufficiency; N20.0 Calculus of kidney; G47.33 Obstructive sleep apnea (adult) (pediatric); F43.10 Post-traumatic stress disorder, unspecified; E03.9 Hypothyroidism, unspecified; E11.39 Type 2 diabetes mellitus with other diabetic ophthalmic complication; E66.01 Morbid (severe) obesity due to excess calories; Z68.43 Body mass index [BMI] 50.0-59.9, adult; E78.5 Hyperlipidemia, unspecified; Z79.82 Long term (current) use of aspirin; W01.0XXA Fall on same level from slipping, tripping and stumbling without subsequent striking against object, initial encounter; Y92.9 Unspecified place or not applicable
CPT/HCPCS: 36415; 80048; 80053; 83735; 85014; 85018; 85025; 85610; 85730; 86850; 86900; 86901; 96374; 96375; 99285; A9270-GY; G0378; G8978-GP-CI; G8979-GP-CI; G8980-GP-CI; J2270; J2765

== ENCOUNTER 2019-08-02 18:55 | Emergency (ER) | payer OTHER ==
--- NOTE | 2019-08-02 21:07 | ED ---
Shortness of Breath - HPI Summary HPI Summary: The patient is a 59 y/o M presenting to [facility] with a chief complaint of difficulty breathing over the last three days despite use of 3.5L O2 at home. He reports that he believes the SOB is worsening from sleep disturbance at night secondary to the sleep apnea and sleep paralysis he has been experiencing. He states that he has spoken to Dr. Moser, who recommended he come here for his symptoms. He additionally c/o mild cough and decreased appetite. He denies any chest pain. Currently, his symptoms are rated 0/10 in severity. He states that he has not been on his Brilinta for the last three days as well. He also notes concern for variance in ejection fraction ranging from 20-45%. PMHx: DM, thyroid disease, angina, congenital heart disease, CHF, CAD, HLD, HTN, peripheral vascular disease (Kawasaki disease), sleep apnea, diverticulosis, kidney stones, CVA, TIA, headaches, spinal cord injury, anxiety , depression, PTSD, heart cath. Nonsmoker, no EtOH, no substance use. Medications reviewed. Allergies noted. - History of Current Complaint Chief Complaint: EDShortnessOfBreath Time Seen by Provider: 08/02/19 21:00 Hx Obtained From: Patient Onset/Duration: Gradual Onset, Lasting Days, Still Present Current Severity: Mild Dyspnea At: Rest Aggravating Factors: Nothing Alleviating Factors: Nothing Associated Signs & Symptoms: Cough (Nonproductive) - mild Related History: Obesity - Allergy/Home Medications Allergies/Adverse Reactions: Allergies Allergy/AdvReac Type Severity Reaction Status Date / Time gabapentin Allergy Intermediate See Comment Verified 09/19/18 14:40 pregabalin [From Lyrica] Allergy Unknown Verified 09/19/18 14:40 Reaction Details procaine Allergy Unknown Verified 09/19/18 14:40 Reaction Details PMH/Surg Hx/FS Hx/Imm Hx Endocrine/Hematology History: Reports: Hx Diabetes, Hx Thyroid Disease Denies: Hx Anemia, Hx Unexplained Bleeding Cardiovascular History: Reports: Hx Angina - HX, Hx Congenital Heart Disease, Hx Congestive Heart Failure, Hx Coronary Artery Disease, Hx Hypercholesterolemia , Hx Hypertension, Hx Peripheral Vascular Disease - ENLARGED BLOOD VESSELS, Hx Syncope, Hx Valvular Heart Disease - MR, Other Cardiovascular Problems/ Disorders - kawasaki disease Denies: Hx Angioplasty, Hx Auto Implanted Cardiovert Defib, Hx Deep Vein Thrombosis, Hx Embolism, Hx Hypotension, Hx Pacemaker/ICD, Hx Rheumatic Fever Respiratory History: Reports: Hx Asthma - CHILDHOOD, Hx Sleep Apnea - on 3L Denies: Hx Chronic Bronchitis, Hx Chronic Obstructive Pulmonary Disease (COPD ), Hx Cystic Fibrosis, Hx Lung Cancer, Hx Pleural Effusion, Hx Pneumonia, Hx Pulmonary Edema, Hx Pulmonary Embolism, Hx Seasonal Allergies Comment Only: Other Respiratory Problems/Disorders - SLEEPS SITTING UP/ DIFFICULTY SLEEPING GI History: Reports: Hx Diverticulosis, Other GI Disorders - "SLIGHTLY INFLAMED LIVER" Denies: Hx Cirrhosis, Hx Crohn's Disease, Hx Gall Bladder Disease, Hx Gastroesophageal Reflux Disease, Hx Gastrointestinal Bleed, Hx Hiatal Hernia, Hx Irritable Bowel, Hx Jaundice, Hx Obstructive Bowel, Hx Ileostomy, Hx Pyloric Stenosis, Hx Ulcer History: Reports: Hx Kidney Stones, Other Problems/Disorders - uretral stents Denies: Hx Acute Renal Failure, Hx Benign Prostatic Hyperplasia, Hx Chronic Renal Failure, Hx Dialysis, Hx Kidney Infection, Hx Renal Disease Musculoskeletal History: Denies: Other Musculoskeletal History Sensory History: Reports: Hx Contacts or Glasses Denies: Hx Cataracts, Hx Eye Injury, Hx Eye Prosthesis, Hx Glaucoma, Hx Legally Blind, Hx Macular Degeneration, Hx Vision Problem, Hx Deafness, Hx Hearing Aid, Hx Hearing Problem, Other Sensory Impairments Opthamlomology History: Reports: Hx Contacts or Glasses Denies: Hx Cataracts, Hx Eye Injury, Hx Eye Prosthesis, Hx Glaucoma, Hx Legally Blind, Hx Macular Degeneration, Hx Vision Problem, Other Sensory Impairments Neurological History: Reports: Hx CVA - 2 as of 07/08/17, Hx Headaches - from NTG , Hx Nerve Disease - neuropathy, C5 damaged, Hx Spinal Cord Injury - pt states trauma at coccyx many years ago, Hx Transient Ischemic Attacks (TIA) Denies: Hx Dementia, Hx Developmental Delay, Hx Migraine, Hx Seizures, Other Neuro Impairments/Disorders - possible TIA/CVA, neuropathies Psychiatric History: Reports: Hx Anxiety - ON MEDICATION FOR, Hx Depression - ON MEDICATION FOR, Hx Post Traumatic Stress Disorder Denies: Hx Panic Disorder - Cancer History Cancer Type, Location and Year: 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 2010 HEART CATHERIZATION, [facility]. 12/25/2014 CYSTOSCOPY BILATERAL RETROGRADE, BILATERAL STENT INSERTION, URETEROSCOPY, TUR BLADDER LESION, [facility]. 01/11/2015 ESWL, CYSTOSCOPY, RIGHT STENT REMOVAL, [facility] Hx Anesthesia Reactions: No - Immunization History Date of Tetanus Vaccine: Unsure Date of Influenza Vaccine: 2011 Infectious Disease History: No Infectious Disease History: Denies: Hx Clostridium Difficile, Hx Hepatitis, Hx Human Immunodeficiency Virus (HIV), Hx of Known/Suspected MRSA, Hx Shingles, Hx Tuberculosis, Hx Known/ Suspected VRE, Hx Known/Suspected VRSA, History Other Infectious Disease, Traveled Outside the [place] in Last 30 Days - Family History Known Family History: Positive: Other - GB disease Negative: Cardiac Disease - Social History Alcohol Use: None Hx Substance Use: No Substance Use Type: Reports: None Hx Tobacco Use: No Smoking Status (MU): Never Smoked Tobacco Have You Smoked in the Last Year: No Review of Systems Negative: Chest Pain Positive: Shortness Of Breath, Cough - mild Positive: Other - decreased appetite Psychological: Other - sleep disturbance All Other Systems Reviewed And Are Negative: Yes Physical Exam - Summary Physical Exam Summary: Appearance: Well-appearing, Morbidly obese male, lying in bed comfortably Skin: Warm, dry, no obvious rash Eyes: sclera anicteric, no conjunctival pallor ENT: mucous membranes moist, pharynx appears normal Neck: Supple, nontender Respiratory: Clear to auscultation, No signs of respiratory distress, Able to speak easily in full sentences Cardiovascular: Normal S1, S2. No murmurs. Normal distal pulses in tibial and radial bilaterally. Abdomen: Soft, nontender, normal active bowel sounds present Musculoskeletal: Normal, Strength/ROM Intact Neurological: A&Ox3, awake and alert, mentation is normal, speech is fluent and appropriate Psychiatric: affect is normal, does not appear anxious or depressed Triage Information Reviewed: Yes Vital Signs On Initial Exam: Initial Vitals Temp Pulse Resp BP Pulse Ox 96.6 F 51 14 120/65 98 08/02/19 19:01 08/02/19 19:01 08/02/19 19:01 08/02/19 19:01 08/02/19 19:01 Vital Signs Reviewed: Yes Diagnostics - Vital Signs Vital Signs Temp Pulse Resp BP Pulse Ox 08/02/19 19:01 96.6 F 51 14 120/65 98 - Laboratory Result Diagrams: 08/02/19 21:46 08/02/19 21:46 Lab Statement: Any lab studies that have been ordered have been reviewed, and results considered in the medical decision making process. - Radiology CXR Radiology Interpretation Completed By: ED Physician Summary of Radiographic Findings: No acute process. ED physician has interpreted this report. Pending official read. - EKG 2134 Cardiac Rate: Tachycardia - 102 bpm EKG Rhythm: Sinus Tachycardia Summary of EKG Findings: EKG at 2134 reveals sinus tachycardia with frequent PVCs. No STEMI. Course/Dx - Course Course Of Treatment: Pt is a 59 y/o M with hx of extensive cardiac disease and sleep apnea with concern for increasing SOB and sleep disturbance over the last three days accompanied by cough and decreased appetite without any CP. Also states hasn't used Brilinta in last three days. Upon physical exam, the patient appears to be morbidly obese lying in the stretcher in no acute respiratory distress, and he is able to easily speak in full sentences. Blood work reveals chloride 113, carbon dioxide 20, glucose 114, AST 9, and BNP 331, but is otherwise insignificant for abnormalities. EKG at 2134 reveals sinus tachycardia with frequent PVCs. Chest x-ray, per my interpretation, reveals no acute process. I discussed the patients case with Dr. Hayes, cardiology, and he recommends a slight increase in diuretics and follow up in his office next week. Pt was administered Lasix. I reported all results to the pt, and he agrees with plan for discharge. He is diagnosed with dyspnea. - Diagnoses Provider Diagnoses: Dyspnea - Physician Notifications Discussed Care of Patient With: Adelso Hayes - cardiology Time Discussed With Above Provider: 22:40 Instructed by Provider To: Other - I discussed the patient's case with Dr. Hayes, and he recommends a slight increase in diuretics with follow up in his office on 08/04/19 or 08/05/19. Discharge ED - Sign-Out/Discharge Documenting (check all that apply): Patient Departure - Patient will be discharged home. Patient Received Moderate/Deep Sedation with Procedure: No - Discharge Plan Condition: Stable Disposition: HOME Prescriptions: Furosemide TAB* [Lasix TAB*] 20 mg PO DAILY #7 tab Patient Education Materials: Heart Failure (ED) Print Language: CZECH Referrals: Clifford Aranda MD [Primary Care Provider] - Manuel Moser MD [Medical Doctor] - Additional Instructions: The safemaker account information clerk jodi recommended a slight increase in your diuretic therapy. Please take your spironolactone daily for the next 3 days, and supplement that with lasix/furosemide 20 mg daily for 3 days. Check in with either Dr. Moser or Dr. Aranda on Sunday to see how you are doing on that. Of course if you get much worse before that come back to the ED. - Billing Disposition and Condition Condition: STABLE Disposition: Home - Attestation Statements Document Initiated by Vickie: Yes Documenting Scribe: Radha Stark Provider For Whom Vickie is Documenting (Include Credential): Dr. Clive Gimenez MD Scribe Attestation: I, Radha Stark scribed for Dr. Clive Gimenez MD on 08/03/19 at 1911. Scribe Documentation Reviewed: Yes Provider Attestation: The documentation as recorded by the Radha hernandez accurately reflects the service I personally performed and the decisions made by me, Dr. Clive Gimenez MD Status of Scribe Document: Viewed
[2019-08-02 22:01] LABS: ABS Basophils 0.1 10^3/ul (0-0.2); ABS Eosinophils 0.2 10^3/ul (0-0.6); ABS Lymphocytes 2.6 10^3/ul (1.0-4.8); ABS Monocytes 0.6 10^3/ul (0-0.8); ABS Neutrophils 5.6 10^3/ul (1.5-7.7); Eosinophil % 1.8 %; Hematocrit 43 % (42-52); Hemoglobin 14.3 g/dL (14.0-18.0); Lymphocyte % 28.8 %; Mean Corpuscular HGB Conc 33 g/dL (31-36); Mean Corpuscular Hemoglobin 31 pg (27-31); Mean Corpuscular Volume 95 fL (80-94); Mean Platelet Volume 9.3 fL (7.4-10.4); Platelet Count 212 10^3/uL (150-450); Red Blood Count 4.58 10^6 /uL (4.18-5.48); Red Cell Distribution Width 14 % (10-15); White Blood Count 9.1 10^3/uL (3.5-10.8)
[2019-08-02 22:18] LABS: Albumin 3.8 g/dL (3.2-5.2); Albumin/Globulin Ratio 1.4 (1-3); Calcium 9.2 mg/dL (8.6-10.3); EGFR African American 78.8 (>60); EGFR Non-African American 65.1 (>60); Globulin 2.7 g/dL (2-4); Potassium 3.9 mmol/L (3.5-5.0); Total Bilirubin 0.3 mg/dL (0.2-1.0); Total Protein 6.5 g/dL (6.4-8.9)
[2019-08-02 22:19] LABS: Troponin I 0.03 ng/mL (<0.04)
[2019-08-02] MEDS ORDERED: Furosemide TAB* 20 MG PO ONE (22:44)
[2019-08-02 23:12] VITALS: BP 141/92
== END 2019-08-02 23:11 | disposition home or self-care (01) ==
LOC: ED 18:55
DX: R06.00 Dyspnea, unspecified (principal); Z99.81 Dependence on supplemental oxygen; E11.9 Type 2 diabetes mellitus without complications; E07.9 Disorder of thyroid, unspecified; I11.0 Hypertensive heart disease with heart failure; I50.9 Heart failure, unspecified; I25.10 Atherosclerotic heart disease of native coronary artery without angina pectoris; E78.00 Pure hypercholesterolemia, unspecified; Z86.73 Personal history of transient ischemic attack (TIA), and cerebral infarction without residual deficits; F41.9 Anxiety disorder, unspecified; F32.9 Major depressive disorder, single episode, unspecified; Z85.51 Personal history of malignant neoplasm of bladder; Z88.1 Allergy status to other antibiotic agents; Z88.8 Allergy status to other drugs, medicaments and biological substances; Z79.82 Long term (current) use of aspirin; Z79.84 Long term (current) use of oral hypoglycemic drugs; Z79.899 Other long term (current) drug therapy
CPT/HCPCS: 36415; 71046; 80053; 83605; 83880; 84484; 85025; 87040; 93005; 99283; A9270-GY

== ENCOUNTER 2021-03-04 10:24 | Observation (INO) ==
[2021-03-04 10:53] LABS: ABS Basophils 0.1 10^3/ul (0-0.2); ABS Eosinophils 0.1 10^3/ul (0-0.6); ABS Lymphocytes 2.1 10^3/ul (1.0-4.8); ABS Monocytes 0.8 10^3/ul (0-0.8); ABS Neutrophils 8.7 10^3/ul (1.5-7.7); Eosinophil % 0.8 %; Hematocrit 48 % (42-52); Hemoglobin 15.6 g/dL (14.0-18.0); Mean Corpuscular HGB Conc 33 g/dL (31-36); Mean Corpuscular Hemoglobin 31 pg (27-31); Mean Corpuscular Volume 95 fL (80-94); Mean Platelet Volume 10.2 fL (7.4-10.4); Platelet Count 342 10^3/uL (150-450); Red Blood Count 5.04 10^6 /uL (4.18-5.48); Red Cell Distribution Width 13 % (10-15); White Blood Count 11.9 10^3/uL (3.5-10.8)
[2021-03-04 11:33] LABS: Troponin I 0.09 ng/mL (<0.03)
[2021-03-04 11:51] LABS: Albumin 4.2 g/dL (3.2-5.2); CO2 Carbon Dioxide 19 mmol/L (22-32); Calcium 9.3 mg/dL (8.6-10.3); Chloride 97 mmol/L (101-111); Sodium 134 mmol/L (135-145)
[2021-03-04 11:57] LABS: ALT 21 U/L (7-52); Albumin/Globulin Ratio 1.2 (1-3); Alkaline Phosphatase 89 U/L (34-104); Blood Urea Nitrogen 38 mg/dL (6-24); EGFR African American 43.6 (>60); Globulin 3.4 g/dL (2-4); Glucose 213 mg/dL (70-100); Total Protein 7.6 g/dL (6.4-8.9)
[2021-03-04 11:59] LABS: Anion Gap 18 mmol/L (2-11)
[2021-03-04] MEDS ORDERED: Diltiazem IV push/loading dose 5 MG/ML 5 ML vial (25 mg) IV SLOW PU ONE (12:13)
[2021-03-04] MEDS ORDERED: Heparin DRIP 25,000 UNITS BAG 25,000 UNITS/500 ML BAG IV SCH (12:15)
[2021-03-04] MEDS ORDERED: Ondansetron 4 mg VIAL 2 MG/ML 2 ml VIAL IV ONE (12:30)
[2021-03-04 12:31] LABS: Potassium Redraw 4.9 mmol/L (3.5-5.0)
[2021-03-04 12:32] LABS: Free T4 1.15 ng/dL (0.61-1.12)
[2021-03-04] MEDS ORDERED: Heparin 5000 UNITS/ML 1 mL VIAL IV SCH (13:00)
[2021-03-04 13:58] LABS: Blood Urea Nitrogen 36 mg/dL (6-24); EGFR African American 50.5 (>60); EGFR Non-African American 41.7 (>60)
[2021-03-04 14:00] LABS: Acetaminophen < 15 mcg/mL; Alcohol, S < 10 mg/dL (<10); Salicylate < 2.50 mg/dL (<30)
[2021-03-04] MEDS ORDERED: Ondansetron 4 mg VIAL 2 MG/ML 2 ml VIAL IV PRN (14:11)
[2021-03-04] MEDS ORDERED: Dextrose 50% Syringe 50 ml 25 GM/50 ML SYRINGE IV PUSH PRN (14:11)
[2021-03-04 16:34] LABS: Troponin I 0.08 ng/mL (<0.03)
[2021-03-04] MEDS: CMCS:Ticagrelor 60 mg TAB (NF) PO SCH (21:02)
[2021-03-05 05:59] LABS: ABS Basophils 0.1 10^3/ul (0-0.2); ABS Eosinophils 0.1 10^3/ul (0-0.6); ABS Lymphocytes 2.6 10^3/ul (1.0-4.8); ABS Monocytes 0.7 10^3/ul (0-0.8); ABS Neutrophils 5.7 10^3/ul (1.5-7.7); Eosinophil % 0.8 %; Hematocrit 41 % (42-52); Hemoglobin 13.7 g/dL (14.0-18.0); Lymphocyte % 28.1 %; Mean Corpuscular HGB Conc 33 g/dL (31-36); Mean Corpuscular Hemoglobin 32 pg (27-31); Mean Corpuscular Volume 94 fL (80-94); Mean Platelet Volume 9.4 fL (7.4-10.4); Nucleated Red Blood Cells % 0.1; Platelet Count 232 10^3/uL (150-450); Red Blood Count 4.34 10^6 /uL (4.18-5.48); Red Cell Distribution Width 13 % (10-15); White Blood Count 9.1 10^3/uL (3.5-10.8)
[2021-03-05 06:28] LABS: Calcium 8.9 mg/dL (8.6-10.3); EGFR African American 54.6 (>60); EGFR Non-African American 45.1 (>60); Magnesium 2.1 mg/dL (1.9-2.7); Potassium 4.1 mmol/L (3.5-5.0)
[2021-03-05] MEDS: CMCS:Ticagrelor 60 mg TAB (NF) PO SCH (08:43)
[2021-03-05] MEDS ORDERED: Aspirin EC 81 mg TAB.EC (enteric coated) PO SCH (09:00)
[2021-03-05 11:53] VITALS: BP 93/64
== END 2021-03-05 13:00 | disposition home or self-care (01) ==
LOC: MEDTELE 10:24 → ED 10:24 → MEDTELE 15:44
PROVIDERS: ADMIT Hospitalist; ATTEND Hospitalist